=== PATIENT | female | born 1955 | race Caucasian/White ===

== ENCOUNTER 2018-10-15 13:56 | Inpatient (IN) | payer MEDICARE, OTHER ==
[2018-10-15] MEDS ORDERED: NITROGLYCERIN OINT 1 INCH/GM PACKET TOPICAL STA (14:08)
--- NOTE | 2018-10-15 14:08 | ED ---
General Adult HPI - General Stated complaint: Poss Pneumonia Time Seen by Provider: 10/15/18 13:56 Source: RN notes reviewed - History of Present Illness Initial comments: This is a 63-year-old female who presents emergency Department from [facility]. She came in for a cough and some shortness of breath. It was determined that she was septic had pneumonia and had an influenza a positive test. Patient also had an elevated troponin so they were calling her non- STEMI. Patient arrived with heparin on board and was given Rocephin and Zithromax and also had Tamiflu given. Patient currently patient is a very poor historian only answers some questions when asked and EMS stated that they had noted that as well. Patient does not appear in any distress at this time but she states she still has a little bit of chest pressure. - Related Data Home Medications Medication Instructions Recorded Confirmed Acetaminophen [Tylenol Extra 500 mg PO Q6H PRN 10/15/18 10/15/18 Strength] Arformoterol Tartrate [Brovana] 15 mcg INHALATION RT-Q12H 10/15/18 10/15/18 Bimatoprost [Bimatoprost .03% 1 drop BOTH EYES HS 10/15/18 10/15/18 Ophth Soln] Cranberry Fruit Concentrate 450 mg PO DAILY 10/15/18 10/15/18 [Cranberry] Diphenox-Atrop 2.5-0.025 mg 1 tab PO BID PRN 10/15/18 10/15/18 [Lomotil] Fluticasone Nasal [place] [Flonase 2 spr EA NOSTRIL DAILY 10/15/18 10/15/18 Nasal [place]] Furosemide [Lasix] 20 mg PO DAILY 10/15/18 10/15/18 Ipratropium-Albuterol Nebulize 3 ml INHALATION RT-QID 10/15/18 10/15/18 [Duoneb 0.5 mg-3 mg/3 ml Soln] Levothyroxine Sodium [Synthroid] 75 mcg PO DAILY 10/15/18 10/15/18 Potassium Chloride [K-Tab ER] 10 meq PO DAILY 10/15/18 10/15/18 Sertraline [Zoloft] 200 mg PO DAILY 10/15/18 10/15/18 Sucralfate [Carafate] 1 gm PO BID 10/15/18 10/15/18 acetaZOLAMIDE [Diamox] 250 mg PO BID 10/15/18 10/15/18 risperiDONE [RisperDAL] 0.75 mg PO BID 10/15/18 10/15/18 Allergies Allergy/AdvReac Type Severity Reaction Status Date / Time No Known Allergies Allergy Verified 10/15/18 14:37 Review of Systems ROS Statement: Those systems with pertinent positive or pertinent negative responses have been documented in the HPI. ROS Other: All systems not noted in ROS Statement are negative. General Exam - General Exam Comments Initial Comments: GENERAL: Patient is well-developed and well-nourished. Patient is nontoxic and well- hydrated and is in mild distress. ENT: Neck is soft and supple. No significant lymphadenopathy is noted. Oropharynx is clear. Moist mucous membranes. Neck has full range of motion without eliciting any pain. EYES: The sclera were anicteric and conjunctiva were pink and moist. Extraocular movements were intact and pupils were equal round and reactive to light. Eyelids were unremarkable. PULMONARY: Patient has crackles in the left lower base as well as extra wheezing. CARDIOVASCULAR: There is a regular rate and rhythm without any murmurs gallops or rubs. ABDOMEN: Soft and nontender with normal bowel sounds. No palpable organomegaly was noted. There is no palpable pulsatile mass. SKIN: Skin is clear with no lesions or rashes and otherwise unremarkable. NEUROLOGIC: Patient is alert and oriented 2. Cranial nerves II through XII are grossly intact. Motor and sensory are also intact. Normal speech, volume and content. Symmetrical smile. MUSCULOSKELETAL: Normal extremities with adequate strength and full range of motion. No lower extremity swelling or edema. No calf tenderness. LYMPHATICS: No significant lymphadenopathy is noted Course Vital Signs 10/15/18 10/15/18 10/15/18 14:16 14:30 15:00 Temperature 98.2 F Pulse Rate 95 94 85 Respiratory 18 24 20 Rate Blood Pressure 91/43 91/43 88/48 O2 Sat by Pulse 97 93 L Oximetry 10/15/18 10/15/18 10/15/18 15:12 15:17 15:23 Temperature Pulse Rate 90 88 93 Respiratory 18 Rate Blood Pressure 80/54 O2 Sat by Pulse 99 Oximetry 10/15/18 10/15/18 10/15/18 15:30 16:00 16:30 Temperature Pulse Rate 89 89 75 Respiratory 19 18 17 Rate Blood Pressure 84/52 86/57 86/57 O2 Sat by Pulse 95 97 96 Oximetry Medical Decision Making - Medical Decision Making EKG shows normal sinus rhythm at 93 bpm NV interval is 164 QRS is 102 QT interval 36 QTC is 479. Patient's EKG shows no ST segment elevation or depression or T wave abnormalities are noted. I reviewed all the patient's lab work and radiology results. I spoke with Dr. Sampson he agreed to follow-up the lab work that was done in the ER because it had not yet come back. I wrote admitting orders I consult to cardiology. Disposition Clinical Impression: Pneumonia, Influenza, Non-STEMI (non-ST elevated myocardial infarction) Disposition: ADMITTED IP TO THIS HOSP Referrals: Wallace Ang MD [Primary Care Provider] - 1-2 days Time of Disposition: 16:52
[2018-10-15] MEDS ORDERED: HEPARIN SOD,PORK IN 0.45% NACL 25,000 UNIT in 0.45% NACL 1 250ML.BAG IV SCH (14:15)
[2018-10-15] MEDS ORDERED: IPRATROPIUM-ALBUTEROL 3 ML NEB INHALATION STA (14:16)
[2018-10-15] MEDS ORDERED: SODIUM CHLORIDE 0.9% 1,000 ML IV ONE (15:34)
[2018-10-15] MEDS ORDERED: SODIUM CHLORIDE 0.9% 500 ML 500 ML IV ONE (16:43)
[2018-10-15] MEDS ORDERED: PNEUMONIA PROTOCOL UTILIZED 1 EACH MISC PO PRN (16:52)
[2018-10-15] MEDS ORDERED: DIPHENOX-ATROP 2.5-0.025 MG 1 EACH TAB PO PRN (18:29)
[2018-10-15] MEDS: acetaZOLAMIDE 250 MG TAB PO SCH (20:32)
[2018-10-15] MEDS: risperiDONE 0.5 MG TAB PO SCH (20:32)
[2018-10-15] MEDS: LATANOPROST 0.005% OPHTH DROPS 2.5 ML BTL BOTH EYES SCH (20:32)
[2018-10-15] MEDS: FORMOTEROL FUMARATE 20 MCG/2 ML NEBU INHALATION SCH (20:59)
[2018-10-15] MEDS: ALBUTEROL NEBULIZED 2.5 MG/3 ML INHALATION SCH (20:59)
[2018-10-15] MEDS: SODIUM CHLORIDE 0.9% 1,000 ML IV SCH (22:59)
[2018-10-15] MEDS: ACETAMINOPHEN TAB 500 MG TAB PO PRN (23:06)
[2018-10-16] MEDS: ACETAMINOPHEN TAB 500 MG TAB PO PRN ×2 (04:44→18:03)
[2018-10-16] MEDS: LEVOTHYROXINE 75 MCG TAB PO SCH (05:40)
[2018-10-16 06:26] LABS: Basophils % (A) 0 %; Eosinophils % (A) 1 %; HCT 33.6 % (34.0-46.0); HGB 10.3 gm/dL (11.4-16.0); Hypochromasia Slight; Lymphocytes # (A) 0.2 k/uL (1.0-4.8); Lymphocytes % (A) 7 %; MCH 31.2 pg (25.0-35.0); MCHC 30.5 g/dL (31.0-37.0); MCV 102.3 fL (80.0-100.0); Macrocytosis Slight; Mean Platelet Volume 8.1; Monocytes # (A) 0.1 k/uL (0-1.0); Monocytes % (A) 3 %; Neutrophils % (A) 89 %; RBC 3.29 m/uL (3.80-5.40); RDW 14.2 % (11.5-15.5); WBC 3.3 k/uL (3.8-10.6)
[2018-10-16 07:04] LABS: Calcium 7.6 mg/dL (8.4-10.2); Potassium 3.4 mmol/L (3.5-5.1)
--- NOTE | 2018-10-16 07:21 | XR ---
EXAMINATION TYPE: XR chest 2V DATE OF EXAM: 10/16/2018 HISTORY: pneumonia. REFERENCE: NONE. FINDINGS: The heart is mildly enlarged. There is vascular congestion and mild pulmonary edema. No def inite pleural fluid is seen. IMPRESSION: SUBTLE CHANGES OF CONGESTIVE HEART FAILURE.
[2018-10-16 07:29] LABS: Platelet Count 78 k/uL (150-450)
[2018-10-16] MEDS: ALBUTEROL NEBULIZED 2.5 MG/3 ML INHALATION SCH ×4 (07:30→19:43)
[2018-10-16] MEDS: FORMOTEROL FUMARATE 20 MCG/2 ML NEBU INHALATION SCH ×2 (07:30→19:43)
[2018-10-16] MEDS ORDERED: NON-FORMULARY DRUG (Cranberry Fruit Concentrate [Cranberry] 450 MG) PO SCH (09:00)
[2018-10-16] MEDS: OSELTAMIVIR 75 MG CAP PO SCH ×2 (09:24→22:34)
[2018-10-16] MEDS: POTASSIUM CHLORIDE ER 10 MEQ TAB.ER.PRT PO SCH (09:24)
[2018-10-16] MEDS: AZITHROMYCIN 500 MG TAB PO SCH (09:24)
[2018-10-16] MEDS: SODIUM CHLORIDE 0.9% 1,000 ML IV SCH (09:24)
[2018-10-16] MEDS: SERTRALINE 100 MG TAB PO SCH (09:24)
[2018-10-16] MEDS: risperiDONE 0.5 MG TAB PO SCH ×2 (09:24→22:34)
[2018-10-16] MEDS: acetaZOLAMIDE 250 MG TAB PO SCH ×2 (09:24→22:34)
[2018-10-16] MEDS ORDERED: FUROSEMIDE 10 MG/ML 4 ML VIAL IV STA (13:49)
[2018-10-16] MEDS ORDERED: POTASSIUM CHLORIDE ER 20 MEQ TAB.ER PO STA (13:53)
--- NOTE | 2018-10-16 13:54 | P.CRDCN ---
History of Present Illness History of present illness: This is a pleasant 63-year-old female past medical history significant for asthma COPD and hypothyroidism. At baseline she has impaired cognitive function. Most information is obtained from the nursing staff in the medical record. Per the nurse she does communicate at times. She apparently presented to the hospital yesterday afternoon with symptoms of cough and shortness of breath. She tested positive for influenza A. She has been started on Tamiflu, antibiotics and heparin infusion secondary to elevated troponin. She is seen and examined resting comfortably in bed in no acute distress with mildly labored respirations. She is not very conversational at this time. When asked if she is having any chest discomfort she shakes her head no. EKG reveals sinus mechanism with left axis deviation and nonspecific ST abnormalities. There is no old for comparison. Chest x-ray reveals evidence of vascular congestion and mild pulmonary edema. Laboratory data reviewed, WBC 3.3, hemoglobin 10.3, platelets 78, sodium 142, potassium 3.4, creatinine 0.86, cardiac enzymes 0.117 and 0.077, NT proBNP has been checked and has 2580. Current cardiac medications include Lasix 20 mg daily. Unable to obtain accurate review of systems secondary to mental status Blood pressure 116/59 heart rate 96 afebrile maintaining oxygen saturation on nasal cannula GENERAL: This is a 63-year-old occasion female in no apparent distress at the time of my examination. HEENT: Head is atraumatic, normocephalic. Pupils are equal, round. Sclerae anicteric. Conjunctivae are clear. Mucous membranes of the mouth are moist. Neck is supple. There is no jugular venous distention. No carotid bruit is heard. LUNGS: Course rhonchi noted throughout, expiratory wheezing and bibasilar rales noted. HEART: Regular rate and rhythm without murmurs, rubs or gallops. S1 and S2 heard. ABDOMEN: Soft, nontender. Bowel sounds are heard. No organomegaly noted. EXTREMITIES: No evidence of peripheral edema and no calf tenderness noted. VASCULAR: Radial and dorsalis pedis pulses palpated, no evidence of clubbing. NEUROLOGIC: Patient is awake, alert and oriented, currently responding to questions. ASSESSMENT Influenza A Troponin elevation secondary to acute influenza and septic like presentation vs possible non-ST elevated [place]. More likely related to influenza. Will check echo. COPD Pneumonia on antibiotics in the form of rochephin and zithromax History of mental impairment Hypokalemia PLAN Discontinue heparin infusion and place on SQ heparin for DVT prophylaxis. Give one dose of IV lasix 40 mg, replace potassium and start on aspirin 81 mg daily. Obtain 2D echocardiogram and doppler study to assess cardiac structure and function. Repeat kidney function and electrolytes in the morning. Further recommendations to follow based on clinical course. Thank you kindly for this consultation. The above impression and plan of care have been discussed and directed by the signing physician. Cee Main, nurse practitioner, acting as scribe for signing physician. Past Medical History Past Medical History: Asthma, Chest Pain / Angina, COPD, Osteoarthritis (OA), Thyroid Disorder Additional Past Medical History / Comment(s): mild mental retardation, glucoma, sleep apnea History of Any Multi-Drug Resistant Organisms: Unobtainable Past Surgical History: No Surgical Hx Reported Past Anesthesia/Blood Transfusion Reactions: Previous Problems w/ Anesthesia Past Psychological History: Unable to Obtain Smoking Status: Unknown if ever smoked Past Alcohol Use History: None Reported, Unable to Obtain Past Drug Use History: None Reported Medications and Allergies Home Medications Medication Instructions Recorded Confirmed Type Acetaminophen [Tylenol Extra 500 mg PO Q6H PRN 10/15/18 10/15/18 History Strength] Arformoterol Tartrate [Brovana] 15 mcg INHALATION RT-Q12H 10/15/18 10/15/18 History Bimatoprost [Bimatoprost .03% 1 drop BOTH EYES HS 10/15/18 10/15/18 History Ophth Soln] Cranberry Fruit Concentrate 450 mg PO DAILY 10/15/18 10/15/18 History [Cranberry] Diphenox-Atrop 2.5-0.025 mg 1 tab PO BID PRN 10/15/18 10/15/18 History [Lomotil] Fluticasone Nasal [place] [Flonase 2 spr EA NOSTRIL DAILY 10/15/18 10/15/18 History Nasal [place]] Furosemide [Lasix] 20 mg PO DAILY 10/15/18 10/15/18 History Ipratropium-Albuterol Nebulize 3 ml INHALATION RT-QID 10/15/18 10/15/18 History [Duoneb 0.5 mg-3 mg/3 ml Soln] Levothyroxine Sodium [Synthroid] 75 mcg PO DAILY 10/15/18 10/15/18 History Potassium Chloride [K-Tab ER] 10 meq PO DAILY 10/15/18 10/15/18 History Sertraline [Zoloft] 200 mg PO DAILY 10/15/18 10/15/18 History Sucralfate [Carafate] 1 gm PO BID 10/15/18 10/15/18 History acetaZOLAMIDE [Diamox] 250 mg PO BID 10/15/18 10/15/18 History risperiDONE [RisperDAL] 0.75 mg PO BID 10/15/18 10/15/18 History Allergies Allergy/AdvReac Type Severity Reaction Status Date / Time No Known Allergies Allergy Verified 10/15/18 14:37 Physical Exam Vitals: Vital Signs Temp Pulse Pulse Resp BP BP Pulse Ox 10/16/18 08:08 96 10/16/18 08:07 96 10/16/18 07:56 98 10/16/18 05:41 98.9 F 10/16/18 03:58 100.1 F H 103 H 21 101/62 95 10/15/18 23:04 100.0 F H 95 18 93/54 97 10/15/18 21:21 88 10/15/18 21:10 88 10/15/18 20:59 86 18 10/15/18 20:26 98.6 F 76 18 86/54 98 10/15/18 18:28 98.1 F 70 20 81/51 98 10/15/18 17:28 98.0 F 10/15/18 17:00 86 18 98/55 98 10/15/18 16:30 75 17 86/57 96 10/15/18 16:00 89 18 86/57 97 10/15/18 15:30 89 19 84/52 95 10/15/18 15:23 93 10/15/18 15:17 88 18 80/54 99 10/15/18 15:12 90 10/15/18 15:00 85 20 88/48 10/15/18 14:30 94 24 91/43 93 L 10/15/18 14:16 98.2 F 95 18 91/43 97 Intake and Output 10/15/18 10/16/18 10/16/18 22:59 06:59 14:59 Intake Total 546.544 Balance 546.544 Intake: Intake, IV Titration 546.544 Amount Heparin Sod,Pork in 0.45% 46.544 NaCl 25,000 unit In 0.45 % NaCl 1 250ml.bag @ 12 UNITS/KG/HR 5.98 mls/hr IV .Q24H [facility] Rx#: [id number] Sodium Chloride 0.9% 1, 500 000 ml @ 100 mls/hr IV . Q10H [facility] Rx#:[id number] Other: Voiding Method Toilet # Voids 1 2 Weight 74.2 kg Results 10/16/18 06:06 10/16/18 06:06 Cardiac Enzymes 10/15/18 10/16/18 Range/Units 16:30 06:06 Troponin I 0.117 H* 0.077 H* (0.000-0.034) ng/mL Coagulation 10/15/18 10/16/18 Range/Units 21:36 06:06 APTT 133.6 H* 78.0 H (22.0-30.0) sec CBC 10/16/18 Range/Units 06:06 WBC 3.3 L (3.8-10.6) k/uL RBC 3.29 L (3.80-5.40) m/uL Hgb 10.3 L (11.4-16.0) gm/dL Hct 33.6 L (34.0-46.0) % Plt Count 78 L (150-450) k/uL Comprehensive Metabolic Panel 10/16/18 Range/Units 06:06 Sodium 142 (137-145) mmol/L Potassium 3.4 L (3.5-5.1) mmol/L Chloride 119 H (98-107) mmol/L Carbon Dioxide 18 L (22-30) mmol/L BUN 25 H (7-17) mg/dL Creatinine 0.86 (0.52-1.04) mg/dL Glucose 93 (74-99) mg/dL Calcium 7.6 L (8.4-10.2) mg/dL Current Medications Generic Name Dose Route Start Last Admin Trade Name Freq PRN Reason Stop Dose Admin Acetaminophen 500 mg 10/15/18 18:29 10/16/18 04:44 Tylenol Tab PO 500 mg Q6H PRN Administration Pain Acetazolamide 250 mg 10/15/18 21:00 10/16/18 09:24 Diamox PO 250 mg BID [facility] Administration Albuterol Sulfate 2.5 mg 10/15/18 20:00 10/16/18 07:30 Ventolin Nebulized INHALATION 2.5 mg RT-QID [facility] Administration Azithromycin 500 mg 10/16/18 09:00 10/16/18 09:24 Zithromax PO 500 mg DAILY [facility] Administration Diphenoxylate HCl/Atropine 1 each 10/15/18 18:29 Lomotil PO BID PRN Constipation Formoterol Fumarate 20 mcg 10/15/18 20:00 10/15/18 20:59 Perforomist INHALATION 20 mcg RT-BID [facility] Administration Heparin Sodium/Sodium Chloride 250 mls @ 5.98 mls/hr 10/15/18 14:15 10/16/18 00:53 25,000 unit/ Sodium Chloride IV 9 units/kg/hr .Q24H [facility] 4.49 mls/hr Titration Protocol 12 UNITS/KG/HR Ceftriaxone Sodium 1,000 mg/ 50 mls @ 100 mls/hr 10/16/18 09:00 Sodium Chloride IVPB 10/19/18 09:01 Q24HR [facility] Sodium Chloride 1,000 mls @ 100 mls/hr 10/15/18 21:30 10/16/18 09:24 Saline 0.9% IV 100 mls/hr .Q10H [facility] Administration Latanoprost 1 drops 10/15/18 21:00 10/15/18 20:32 Xalatan 0.005% BOTH EYES 1 drops HS [facility] Administration Levothyroxine Sodium 75 mcg 10/16/18 06:30 10/16/18 05:40 Synthroid PO 75 mcg DAILY@0630 [facility] Administration Miscellaneous Information 1 each 10/15/18 16:52 Pneumonia Protocol Utilized PO ONCE PRN Per Protocol Oseltamivir Phosphate 75 mg 10/16/18 09:00 10/16/18 09:24 Tamiflu PO 10/20/18 21:01 75 mg Q12HR [facility] Administration Potassium Chloride 10 meq 10/16/18 09:00 10/16/18 09:24 K-Dur 10 PO 10 meq DAILY [facility] Administration Risperidone 0.75 mg 10/15/18 21:00 10/16/18 09:24 Risperdal PO 0.75 mg BID [facility] Administration Sertraline HCl 200 mg 10/16/18 09:00 10/16/18 09:24 Zoloft PO 200 mg DAILY [facility] Administration Intake and Output 10/15/18 10/16/18 10/16/18 22:59 06:59 14:59 Intake Total 546.544 Balance 546.544 Intake: Intake, IV Titration 546.544 Amount Heparin Sod,Pork in 0.45% 46.544 NaCl 25,000 unit In 0.45 % NaCl 1 250ml.bag @ 12 UNITS/KG/HR 5.98 mls/hr IV .Q24H [facility] Rx#: [id number] Sodium Chloride 0.9% 1, 500 000 ml @ 100 mls/hr IV . Q10H [facility] Rx#:[id number] Other: Voiding Method Toilet # Voids 1 2 Weight 74.2 kg 10/16/18 06:06 10/16/18 06:06
[2018-10-16] MEDS: ASPIRIN 81 MG PO SCH (16:13)
--- NOTE | 2018-10-16 17:25 | HP ---
HISTORY AND PHYSICAL DATE OF ADMISSION: October 15, 2018. DATE OF SERVICE: October 16, 2018. PRESENT COMPLAINT: Fever, cough. HISTORY OF PRESENTING COMPLAINT: This is a pleasant 63-year-old patient with mental impairment, who lives [place] a jail. The patient was transferred from [facility] here. The patient follows with Visiting Physician, Dr. Ang. The patient's medical conditions listed, which is stable, include osteoarthritis, hypothyroid, obstructive sleep apnea, depression. The patient is a poor historian herself. The patient presented to the [place] ER where she has been 5 days feeling unwell, been to the ER 3 times in the last 1 week. The patient had 102 fever [address] the jail. The patient is congested, cough, bringing up some clear sputum. The patient's chest x-ray did show infiltrates and patient came back positive for influenza A. The patient was started on antibiotics and started on Tamiflu here and transferred down here. Also, proBNP was elevated. Seen by Cardiology and was given a dose of IV Lasix. The patient herself still remains a poor historian. Patient had a fever 103.7 with a heart rate of 120 at the other facility. REVIEW OF SYSTEMS: Difficult to obtain as this patient really does not tell much. PAST MEDICAL HISTORY: COPD, osteoarthritis, hypothyroid, mental retardation, obstructive sleep apnea, depression. PAST SURGICAL HISTORY: None reported. SOCIAL HISTORY: The patient's caregiver is Francoise Bowman and legal guardian is Lyric Hull. No smoking. No alcohol reported. HOME MEDICATIONS: 1. Tylenol Extra Strength 500 mg q.6h p.r.n. 2. Risperdal 0.75 mg p.o. b.i.d. 3. Carafate 1 g b.i.d. 4. Zoloft 200 mg p.o. daily. 5. Potassium 10 mEq p.o. daily. 6. Synthroid 75 mcg a day. 7. DuoNeb q.i.d. 8. Lasix 20 mg daily. 9. Flonase 2 sprays each nostril daily. 10.Lomotil 1 tablet p.o. b.i.d. p.r.n. 11.Cranberry 450 mg p.o. daily. 12. 0.03% 1 drop both eyes q.h.s. 13.Brovana 15 mcg q.12h. 14.Diamox 250 mg p.o. b.i.d. ALLERGIES: None. PHYSICAL EXAMINATION: VITAL SIGNS: Vital signs at the other hospital were temperature 103.7, pulse 110, respiration 20, blood pressure 109/55, pulse ox 92 percent on room air. The patient's maximum fever was 100.1. GENERAL APPEARANCE: Well built, BMI 31.9. Sitting up tired-appearing. EYES: Pupils equal. Conjunctivae normal. HEENT: External appearance of nose and ears normal. Oral cavity normal. NECK: JVD unable to assess. Mass not palpable. RESPIRATORY: Effort increased. LUNGS: Decreased breath sounds. Bilateral inspiratory and expiratory crackles. Audible wheezing. CARDIOVASCULAR: First and second sounds normal. No edema. ABDOMEN: Soft, nontender. Liver and spleen not palpable. LYMPHATICS: No lymph nodes palpable in the neck and axilla. PSYCHIATRY: Unable to really assess. NEUROLOGICAL: Pupils equal. No facial asymmetry. Moving all 4 limbs. INVESTIGATIONS: White count 3.3, hemoglobin 10.3, platelets 78. Potassium 3.4, BUN 25, creatinine 0.86. Troponin 0.117 and 0.077. Troponin at the other place was 0.117. Influenza A, RNA detected. The patient's AST is 267, ALT [address] Chest x-ray personally reviewed by me shows bilateral infiltrates. ASSESSMENT: 1. Acute bilateral pneumonia, likely from influenza A, a secondary bacterial component cannot be ruled out causing sepsis on presentation. 2. Primary osteoarthritis. 3. Hypothyroidism. 4. Obstructive sleep apnea, unknown if the patient uses a CPAP machine. 5. Mental retardation, chronic. 6. Depression, not otherwise specified. 7. Obesity; BMI 31.9. 8. Possible congestive heart failure with a proBNP of 2580. PLAN: Patient is put on IV ceftriaxone and Zithromax and the patient is also started on Tamiflu 75 mg q.12. We will also add bronchodilators and given that the patient will be fluid overload, we will hold off patient's IV fluids. We will give Lovenox for DVT prophylaxis. Consultation was made to Cardiology. Copy to visiting physician Dr. Ang. MMSILVESTREL / DILCIAN: [id number] /
[2018-10-16] MEDS ORDERED: DILTIAZEM DRIP BOLUS FROM BAG 1 MG SOLN IV ONE (20:22)
[2018-10-16] MEDS ORDERED: ADENOSINE 3 MG/ML 2 ML VIAL IVP STA (20:22)
[2018-10-16 20:29] LABS: Glucose,Whole Blood 103 mg/dL (75-99)
[2018-10-16] MEDS: DILTIAZEM 50 MG in SODIUM CHLORIDE 0.9% 40 ML IV SCH (21:38)
[2018-10-16] MEDS: HEPARIN SODIUM,PORCINE 5,000 UNIT/ML 1 ML VIAL SQ SCH (22:34)
[2018-10-16] MEDS: LATANOPROST 0.005% OPHTH DROPS 2.5 ML BTL BOTH EYES SCH (22:34)
[2018-10-17 06:11] LABS: Basophils % (A) 0 %; Eosinophils % (A) 1 %; HCT 33.9 % (34.0-46.0); HGB 10.9 gm/dL (11.4-16.0); Hypochromasia Slight; Lymphocytes # (A) 0.3 k/uL (1.0-4.8); Lymphocytes % (A) 16 %; MCH 32.1 pg (25.0-35.0); MCHC 32.2 g/dL (31.0-37.0); MCV 99.8 fL (80.0-100.0); Macrocytosis Slight; Mean Platelet Volume 8.3; Monocytes # (A) 0.1 k/uL (0-1.0); Monocytes % (A) 2 %; Neutrophils # (A) 1.6 k/uL (1.3-7.7); Neutrophils % (A) 80 %; RDW 14.2 % (11.5-15.5)
[2018-10-17 06:16] LABS: Platelet Count 63 k/uL (150-450)
[2018-10-17] MEDS: DILTIAZEM 50 MG in SODIUM CHLORIDE 0.9% 40 ML IV SCH ×3 (06:24→10:22)
[2018-10-17] MEDS: LEVOTHYROXINE 75 MCG TAB PO SCH (06:26)
[2018-10-17 06:29] LABS: Calcium 7.6 mg/dL (8.4-10.2); Potassium 3.5 mmol/L (3.5-5.1)
[2018-10-17] MEDS ORDERED: Potassium Replacement Protocol 1 EACH MISC MISCELLANE PRN (08:12)
[2018-10-17] MEDS: ALBUTEROL NEBULIZED 2.5 MG/3 ML INHALATION SCH ×4 (08:28→20:42)
[2018-10-17] MEDS: FORMOTEROL FUMARATE 20 MCG/2 ML NEBU INHALATION SCH ×2 (08:28→20:42)
[2018-10-17] MEDS: ASPIRIN 81 MG PO SCH (08:42)
[2018-10-17] MEDS: HEPARIN SODIUM,PORCINE 5,000 UNIT/ML 1 ML VIAL SQ SCH ×3 (08:42→19:13)
[2018-10-17] MEDS: acetaZOLAMIDE 250 MG TAB PO SCH ×2 (08:43→19:12)
[2018-10-17] MEDS: SERTRALINE 100 MG TAB PO SCH (08:43)
[2018-10-17] MEDS: OSELTAMIVIR 75 MG CAP PO SCH ×2 (08:43→19:13)
[2018-10-17] MEDS: POTASSIUM CHLORIDE ER 20 MEQ TAB.ER PO SCH ×2 (08:43→10:22)
[2018-10-17] MEDS: AZITHROMYCIN 500 MG TAB PO SCH (08:43)
[2018-10-17] MEDS: POTASSIUM CHLORIDE ER 10 MEQ TAB.ER.PRT PO SCH (08:43)
[2018-10-17] MEDS: risperiDONE 0.5 MG TAB PO SCH ×2 (08:44→19:12)
--- NOTE | 2018-10-17 15:17 | P.PN ---
Subjective Progress Note Date: 10/17/18 This is a pleasant 63-year-old female past medical history significant for asthma COPD and hypothyroidism. At baseline she has impaired cognitive function. Most information is obtained from the nursing staff in the medical record. Per the nurse she does communicate at times. She apparently presented to the hospital with symptoms of cough and shortness of breath. She tested positive for influenza A. She has been started on Tamiflu, antibiotics and heparin infusion secondary to elevated troponin. She is seen and examined resting comfortably in bed in no acute distress with mildly labored respirations. Patient went into supraventricular tachycardia through the night , was given adenosine and converted to normal sinus rhythm. She continues to be in a normal sinus rhythm at this time. Continues to be on IV Cardizem. Which we will discontinue. Blood pressure 86/40, heart rate low 100s, 95% on 3 L of oxygen. White blood cell count 2.0, hemoglobin 10.9, platelet count 63. Sodium 144, potassium 3.5, BUN 16, creatinine 0.8. Objective - Vital Signs Vital signs: Vital Signs Temp 99.7 F H 10/17/18 11:48 Pulse 102 H 10/17/18 13:05 Resp 20 10/17/18 11:55 BP 86/54 10/17/18 11:48 Pulse Ox 95 10/17/18 11:48 Intake & Output 10/16/18 10/17/18 10/17/18 18:59 06:59 18:59 Intake Total 2470 1144.000 279.333 Balance 2470 1144.000 279.333 Weight 74 kg Intake: Intake, IV Titration 1700 1144.000 39.333 Amount Diltiazem 50 mg In Sodium 44.000 39.333 Chloride 0.9% 40 ml @ 10 MG/HR 10 mls/hr IV .Q5H [facility] Rx#:[id number] Sodium Chloride 0.9% 1, 1600 1100 000 ml @ 100 mls/hr IV . Q10H [facility] Rx#:[id number] cefTRIAXone 1,000 mg In 100 Sodium Chloride 0.9% 50 ml @ 100 mls/hr IVPB Q24HR [facility] Rx#:[id number] Oral 770 240 Other: Voiding Method Toilet Toilet # Voids 1 4 # Bowel Movements 1 - Exam Blood pressure 116/59 heart rate 96 afebrile maintaining oxygen saturation on nasal cannula GENERAL: This is a 63-year-old occasion female in no apparent distress at the time of my examination. HEENT: Head is atraumatic, normocephalic. Pupils are equal, round. Sclerae anicteric. Conjunctivae are clear. Mucous membranes of the mouth are moist. Neck is supple. There is no jugular venous distention. No carotid bruit is heard. LUNGS: Course rhonchi noted throughout, expiratory wheezing and bibasilar rales noted. HEART: Regular rate and rhythm without murmurs, rubs or gallops. S1 and S2 heard. ABDOMEN: Soft, nontender. Bowel sounds are heard. No organomegaly noted. EXTREMITIES: No evidence of peripheral edema and no calf tenderness noted. VASCULAR: Radial and dorsalis pedis pulses palpated, no evidence of clubbing. NEUROLOGIC: Patient is awake, alert and oriented, currently responding to questions. - Labs CBC & Chem 7: 10/17/18 05:40 10/17/18 11:41 Labs: Abnormal Lab Results - Last 24 Hours (Table) 10/16/18 10/17/18 10/17/18 Range/Units 20:27 05:40 05:40 WBC 2.0 L (3.8-10.6) k/uL RBC 3.40 L (3.80-5.40) m/uL Hgb 10.9 L (11.4-16.0) gm/dL Hct 33.9 L (34.0-46.0) % Plt Count 63 L (150-450) k/uL Lymphocytes # 0.3 L (1.0-4.8) k/uL Chloride 119 H (98-107) mmol/L Carbon Dioxide 20 L (22-30) mmol/L POC Glucose (mg/dL) 103 H (75-99) mg/dL Calcium 7.6 L (8.4-10.2) mg/dL Microbiology - Last 24 Hours (Table) 10/15/18 21:36 Blood Culture - Preliminary Blood No Growth after 24 hours Assessment and Plan Plan: Assessment and plan #1 Influenza A #2 Troponin elevation secondary to acute influenza and septic like presentation vs possible non-ST elevated [place]. More likely related to influenza. Will check echo. #3 COPD #4 Pneumonia on antibiotics in the form of rochephin and zithromax #5 History of mental impairment #6 Hypokalemia #7 supraventricular tachycardia Plan A shunt is remaining in normal sinus rhythm, we'll discontinue the IV Cardizem drip, start the patient on a low-dose beta aramis. DNP note has been reviewed, I agree with a documented findings and plan of care. Patient was seen and examined.
[2018-10-17] MEDS ORDERED: VANCOMYCIN IV PER PHARMACY 1 EACH MISC MISCELLANE PRN (16:42)
[2018-10-17] MEDS ORDERED: VANCOMYCIN 1,250 MG in SODIUM CHLORIDE 0.9% 250 ML IVPB ONE (18:00)
[2018-10-17] MEDS: LATANOPROST 0.005% OPHTH DROPS 2.5 ML BTL BOTH EYES SCH (19:13)
[2018-10-17] MEDS: METOPROLOL TARTRATE 12.5 MG TAB PO SCH (19:13)
--- NOTE | 2018-10-17 19:56 | ECHOF ---
Referral Reason:elevated trop MEASUREMENTS -------- HEIGHT: 152.4 cm WEIGHT: 73.9 kg BP: 99/56 IVSd: 1.0 cm (0.6 - 1.1) LVIDd: 3.8 cm (3.9 - 5.3) LVPWd: 1.2 cm (0.6 - 1.1) IVSs: 1.4 cm LVIDs: 2.5 cm LVPWs: 1.6 cm LAESV Index (A-L): 25.09 ml/m Ao Diam: 2.8 cm (2.0 - 3.7) AV Cusp: 1.7 cm (1.5 - 2.6) LA Diam: 3.0 cm (2.7 - 3.8) MV EXCURSION: 11.106 mm (> 18.000) MV EF SLOPE: 62 mm/s (70 - 150) EPSS: 0.7 cm AV maxP.55 mmHg AV meanP.28 mmHg RAP: 5.00 mmHg RVSP: 28.47 mmHg FINDINGS -------- Resting tachycardia (HR>100bpm). This was a technically difficult study with suboptimal views. The left ventricular size is normal. Left ventricular wall thickness is normal. Overall left vent ricular systolic function is normal with, an EF between 60 - 65 %. The right ventricle is normal in size and function. The left atrium is normal in size. The right atrium is normal in size. Aortic valve is trileaflet and is mildly thickened. There is mild aortic valve sclerosis. Peak/me an gradient across the Aortic Valve is 30.55mmHg / 17.28mmHg. The mitral valve leaflets are mildly thickened. Mild mitral regurgitation is present. Mild tricuspid regurgitation present. The right ventricular systolic pressure, as measured by Doppl er, is 28.47mmHg. Pulmonic valve appears structurally normal. The aortic root size is normal. IVC Not well visulized. The pericardium is normal. CONCLUSIONS -------- 1. Resting tachycardia (HR>100bpm). 2. This was a technically difficult study with suboptimal views. 3. The left ventricular size is normal. 4. Left ventricular wall thickness is normal. 5. Overall left ventricular systolic function is normal with, an EF between 60 - 65 %. 6. The right ventricle is normal in size and function. 7. The left atrium is normal in size. 8. The right atrium is normal in size. 9. Aortic valve is trileaflet and is mildly thickened. 10. There is mild aortic valve sclerosis. 11. Peak/mean gradient across the Aortic Valve is 30.55mmHg / 17.28mmHg. 12. The mitral valve leaflets are mildly thickened. 13. Mild mitral regurgitation is present. 14. Mild tricuspid regurgitation present. 15. The right ventricular systolic pressure, as measured by Doppler, is 28.47mmHg. 16. Pulmonic valve appears structurally normal. 17. The aortic root size is normal. 18. IVC Not well visulized. 19. The pericardium is normal. PLEATING SUPERVISOR: Eleanor Falk RDCS
--- NOTE | 2018-10-18 05:01 | PN ---
PROGRESS NOTE DATE OF SERVICE: 10/17/2018 PRESENTING COMPLAINT: Fever, cough. INTERVAL HISTORY: This patient with mental impairment presented with influenza A being positive today. Blood cultures came back positive for gram-positive cocci in clusters. Vancomycin was started. The patient less congested, but still congested, having some bronchospasm. Lying in bed. Patient is tolerating his diet. Lying in bed. The patient is minimally communicative. REVIEW OF SYSTEMS: Difficult to obtain as patient does not talk much. CURRENT MEDICATIONS: Current medications are reviewed that include Zithromax, IV ceftriaxone, vancomycin. PHYSICAL EXAMINATION: On examination, temperature 100.9 this morning, pulse 94, respiration 20, blood pressure 86/54 pulse ox 95% on 3 L. GENERAL APPEARANCE: Lying in bed, tired appearing. EYES: Pupils equal. Conjunctivae normal. NECK: JVD unable to assess. Mass not palpable. RESPIRATORY: Effort increased. LUNGS: Decreased breath sounds. Both inspiratory and expiratory crackles a little bit better from before. Decreased wheezing. CARDIOVASCULAR: First and second sounds normal. No edema. ABDOMEN: Soft, nontender. Liver and spleen not palpable. PSYCHIATRY: Patient can answer occasional questions. INVESTIGATIONS: White count 2, hemoglobin 10.9, platelets 63. Potassium 3.5, bicarb 20. BUN 16, creatinine 0.83. ProBNP 2170. A 2D echocardiogram, EF of 60% to 65%. ASSESSMENT: 1. Acute bilateral pneumonia, likely influenza A secondary bacterial component cannot be ruled out causing sepsis on presentation. 2. Sepsis with blood cultures positive for gram-positive cocci in clusters. 3. Primary osteoarthritis. 4. Hypothyroidism. 5. Obstructive sleep apnea. 6. Mental retardation, chronic. 7. Depression, not otherwise specified. 8. Obesity; body mass index 31.9. Vancomycin was added today. Continue with Tamiflu. Will discontinue the Zithromax. Beta aramis was added by Cardiology today. The patient is still rather sick. MMODL / IJN: [id number] /
[2018-10-18] MEDS: LEVOTHYROXINE 75 MCG TAB PO SCH (05:05)
[2018-10-18] MEDS: VANCOMYCIN 1,250 MG in SODIUM CHLORIDE 0.9% 250 ML IVPB SCH ×2 (05:05→17:42)
[2018-10-18 07:01] LABS: Calcium 8.1 mg/dL (8.4-10.2); Potassium 3.9 mmol/L (3.5-5.1)
[2018-10-18 07:26] LABS: Basophils % (A) 0 %; Eosinophils % (A) 1 %; HCT 33.8 % (34.0-46.0); HGB 10.4 gm/dL (11.4-16.0); Hypochromasia Slight; Lymphocytes # (A) 0.3 k/uL (1.0-4.8); Lymphocytes % (A) 21 %; MCHC 30.7 g/dL (31.0-37.0); MCV 100.8 fL (80.0-100.0); Macrocytosis Slight; Mean Platelet Volume 8.4; Monocytes # (A) 0.1 k/uL (0-1.0); Monocytes % (A) 3 %; Neutrophils % (A) 72 %; RBC 3.36 m/uL (3.80-5.40); RDW 14.4 % (11.5-15.5)
[2018-10-18 07:32] LABS: Platelet Count 65 k/uL (150-450); WBC 1.4 k/uL (3.8-10.6)
[2018-10-18] MEDS: METOPROLOL TARTRATE 12.5 MG TAB PO SCH ×2 (08:46→20:05)
[2018-10-18] MEDS: POTASSIUM CHLORIDE ER 10 MEQ TAB.ER.PRT PO SCH (08:46)
[2018-10-18] MEDS: ASPIRIN 81 MG PO SCH (08:46)
[2018-10-18] MEDS: AZITHROMYCIN 500 MG TAB PO SCH (08:47)
[2018-10-18] MEDS: risperiDONE 0.5 MG TAB PO SCH ×2 (08:47→20:05)
[2018-10-18] MEDS: OSELTAMIVIR 75 MG CAP PO SCH (08:47)
[2018-10-18] MEDS: acetaZOLAMIDE 250 MG TAB PO SCH ×2 (08:47→20:05)
[2018-10-18] MEDS: SERTRALINE 100 MG TAB PO SCH (08:54)
[2018-10-18] MEDS: SODIUM BICARBONATE TAB 650 MG TAB PO SCH ×3 (08:54→20:05)
[2018-10-18] MEDS: ALBUTEROL NEBULIZED 2.5 MG/3 ML INHALATION SCH ×4 (09:29→20:22)
[2018-10-18] MEDS: FORMOTEROL FUMARATE 20 MCG/2 ML NEBU INHALATION SCH ×2 (09:35→20:38)
--- NOTE | 2018-10-18 14:46 | P.PN ---
Subjective Progress Note Date: 10/18/18 This is a pleasant 63-year-old female past medical history significant for asthma COPD and hypothyroidism. At baseline she has impaired cognitive function. Most information is obtained from the nursing staff in the medical record. Per the nurse she does communicate at times. She apparently presented to the hospital with symptoms of cough and shortness of breath. She tested positive for influenza A. She has been started on Tamiflu, antibiotics and heparin infusion secondary to elevated troponin. She is seen and examined resting comfortably in bed in no acute distress with mildly labored respirations. Patient went into supraventricular tachycardia through the night , was given adenosine and converted to normal sinus rhythm. She continues to be in a normal sinus rhythm at this time. Continues to be on IV Cardizem. Which we will discontinue. Blood pressure 86/40, heart rate low 100s, 95% on 3 L of oxygen. White blood cell count 2.0, hemoglobin 10.9, platelet count 63. Sodium 144, potassium 3.5, BUN 16, creatinine 0.8. 10/18/2018 Patient seen and examined today, no further episodes of SVT noted. Blood pressure 90/60 with a heart rate in the 80s, 96% on 3 L of oxygen. Objective - Vital Signs Vital signs: Vital Signs Temp 99.2 F 10/18/18 11:43 Pulse 88 10/18/18 13:20 Resp 20 10/18/18 12:00 BP 89/59 10/18/18 11:43 Pulse Ox 96 10/18/18 11:43 Intake & Output 10/17/18 10/18/18 10/18/18 18:59 06:59 18:59 Intake Total 619.333 125 240 Balance 619.333 125 240 Weight 74.5 kg Intake: IV 125 Vancomycin 1,250 mg In 125 Sodium Chloride 0.9% 250 ml @ 125 mls/hr IVPB ONCE ONE Rx#:[id number] Intake, IV Titration 139.333 Amount Diltiazem 50 mg In Sodium 39.333 Chloride 0.9% 40 ml @ 10 MG/HR 10 mls/hr IV .Q5H [facility] Rx#:[id number] cefTRIAXone 1,000 mg In 100 Sodium Chloride 0.9% 50 ml @ 100 mls/hr IVPB Q24HR [facility] Rx#:[id number] Oral 480 240 Other: Voiding Method Toilet Toilet # Voids 1 1 # Bowel Movements 1 - Exam Blood pressure 116/59 heart rate 96 afebrile maintaining oxygen saturation on nasal cannula GENERAL: This is a 63-year-old occasion female in no apparent distress at the time of my examination. HEENT: Head is atraumatic, normocephalic. Pupils are equal, round. Sclerae anicteric. Conjunctivae are clear. Mucous membranes of the mouth are moist. Neck is supple. There is no jugular venous distention. No carotid bruit is heard. LUNGS: Course rhonchi noted throughout, expiratory wheezing and bibasilar rales noted. HEART: Regular rate and rhythm without murmurs, rubs or gallops. S1 and S2 heard. ABDOMEN: Soft, nontender. Bowel sounds are heard. No organomegaly noted. EXTREMITIES: No evidence of peripheral edema and no calf tenderness noted. VASCULAR: Radial and dorsalis pedis pulses palpated, no evidence of clubbing. NEUROLOGIC: Patient is awake, alert and oriented, currently responding to questions. - Labs CBC & Chem 7: 10/18/18 05:49 10/18/18 05:49 Labs: Abnormal Lab Results - Last 24 Hours (Table) 10/18/18 10/18/18 Range/Units 05:49 05:49 WBC 1.4 L* (3.8-10.6) k/uL RBC 3.36 L (3.80-5.40) m/uL Hgb 10.4 L (11.4-16.0) gm/dL Hct 33.8 L (34.0-46.0) % MCV 100.8 H (80.0-100.0) fL MCHC 30.7 L (31.0-37.0) g/dL Plt Count 65 L (150-450) k/uL Neutrophils # 1.0 L (1.3-7.7) k/uL Lymphocytes # 0.3 L (1.0-4.8) k/uL Chloride 121 H (98-107) mmol/L Carbon Dioxide 20 L (22-30) mmol/L Calcium 8.1 L (8.4-10.2) mg/dL Microbiology - Last 24 Hours (Table) 10/15/18 21:36 Blood Culture Gram Stain - Preliminary Blood Blood Culture - Preliminary Coagulase Negative Staph 10/15/18 21:36 Blood Culture - Final Blood Assessment and Plan Plan: Assessment and plan #1 Influenza A #2 Troponin elevation secondary to acute influenza and septic like presentation vs possible non-ST elevated OK. More likely related to influenza. Will check echo. #3 COPD #4 Pneumonia on antibiotics in the form of rochephin and zithromax #5 History of mental impairment #6 Hypokalemia #7 supraventricular tachycardia Plan Patient is remaining in normal sinus rhythm, we would recommend to continue the patient on current medications. We will follow along with you now on an as- needed basis only, please don't hesitate to call with any questions. DNP note has been reviewed, I agree with a documented findings and plan of care. Patient was seen and examined.
--- NOTE | 2018-10-18 15:26 | P.CONS ---
History of Present Illness - Reason for Consult Consult date: 10/18/18 Pancytopenia Requesting physician: Guille Sampson - Chief Complaint Influenza A - History of Present Illness Patient is a 63 year old female who has been admitted with shortness of breath, cough and fever. Xavier culture revealed Influenza A. She is currently receiving supportive care. Hematology has been consulted to assess her low blood counts. WBC today 1.4 and neutrophils 1. On evaluation she is sitting up in a chair, [place] , Poor historian. She has no acute complaints but appears fatigued and weak. Review of Systems A 14 point review of systems assessed and completed and all negative excedpt HPI Past Medical History Past Medical History: Asthma, Chest Pain / Angina, COPD, Osteoarthritis (OA), Thyroid Disorder Additional Past Medical History / Comment(s): mild mental retardation, glucoma, sleep apnea History of Any Multi-Drug Resistant Organisms: Unobtainable Past Surgical History: No Surgical Hx Reported Past Anesthesia/Blood Transfusion Reactions: Previous Problems w/ Anesthesia Past Psychological History: Unable to Obtain Smoking Status: Unknown if ever smoked Past Alcohol Use History: None Reported, Unable to Obtain Past Drug Use History: None Reported Medications and Allergies Home Medications Medication Instructions Recorded Confirmed Type Acetaminophen [Tylenol Extra 500 mg PO Q6H PRN 10/15/18 10/15/18 History Strength] Arformoterol Tartrate [Brovana] 15 mcg INHALATION RT-Q12H 10/15/18 10/15/18 History Bimatoprost [Bimatoprost .03% 1 drop BOTH EYES HS 10/15/18 10/15/18 History Ophth Soln] Cranberry Fruit Concentrate 450 mg PO DAILY 10/15/18 10/15/18 History [Cranberry] Diphenox-Atrop 2.5-0.025 mg 1 tab PO BID PRN 10/15/18 10/15/18 History [Lomotil] Fluticasone Nasal [place] [Flonase 2 spr EA NOSTRIL DAILY 10/15/18 10/15/18 History Nasal [place]] Furosemide [Lasix] 20 mg PO DAILY 10/15/18 10/15/18 History Ipratropium-Albuterol Nebulize 3 ml INHALATION RT-QID 10/15/18 10/15/18 History [Duoneb 0.5 mg-3 mg/3 ml Soln] Levothyroxine Sodium [Synthroid] 75 mcg PO DAILY 10/15/18 10/15/18 History Potassium Chloride [K-Tab ER] 10 meq PO DAILY 10/15/18 10/15/18 History Sertraline [Zoloft] 200 mg PO DAILY 10/15/18 10/15/18 History Sucralfate [Carafate] 1 gm PO BID 10/15/18 10/15/18 History acetaZOLAMIDE [Diamox] 250 mg PO BID 10/15/18 10/15/18 History risperiDONE [RisperDAL] 0.75 mg PO BID 10/15/18 10/15/18 History Allergies Allergy/AdvReac Type Severity Reaction Status Date / Time No Known Allergies Allergy Verified 10/15/18 14:37 Physical Exam Vitals: Vital Signs Temp Pulse Pulse Resp BP Pulse Ox 10/18/18 13:20 88 10/18/18 13:09 88 10/18/18 12:00 87 20 10/18/18 11:43 99.2 F 87 20 89/59 96 10/18/18 09:49 88 10/18/18 09:41 84 10/18/18 09:40 84 10/18/18 09:31 88 98 10/18/18 08:00 99.4 F 90 20 91/48 98 10/18/18 04:00 98.8 F 92 20 99/59 97 10/18/18 03:54 20 10/18/18 00:00 95 20 101/58 96 10/17/18 21:01 101 H 10/17/18 20:52 103 H 10/17/18 20:44 100 10/17/18 20:00 99.4 F 99 20 85/54 95 10/17/18 16:51 102 H 10/17/18 16:43 100 96 10/17/18 16:00 98.6 F 96 20 97/54 95 Intake and Output 10/18/18 10/18/18 10/18/18 06:59 14:59 22:59 Intake Total 125 240 Balance 125 240 Intake: IV 125 Vancomycin 1,250 mg In 125 Sodium Chloride 0.9% 250 ml @ 125 mls/hr IVPB ONCE ONE Rx#:[id number] Oral 240 Other: Voiding Method Toilet # Voids 1 # Bowel Movements 1 Weight 74.5 kg General: ALert, NAD Head: NC, NT NEck Supple, Trachea midline, No lymphadenopathy cervical or axilla Lungs expiratory wheezres throughout and diminished bibasilar Heart Tachy, Reg ABdomen: Soft, ND, NT Extremities: MIld lower extremity bilateral dependant edema Results CBC & Chem 7: 10/18/18 05:49 10/18/18 05:49 Labs: Abnormal Lab Results - Last 24 Hours (Table) 10/18/18 10/18/18 Range/Units 05:49 05:49 WBC 1.4 L* (3.8-10.6) k/uL RBC 3.36 L (3.80-5.40) m/uL Hgb 10.4 L (11.4-16.0) gm/dL Hct 33.8 L (34.0-46.0) % MCV 100.8 H (80.0-100.0) fL MCHC 30.7 L (31.0-37.0) g/dL Plt Count 65 L (150-450) k/uL Neutrophils # 1.0 L (1.3-7.7) k/uL Lymphocytes # 0.3 L (1.0-4.8) k/uL Chloride 121 H (98-107) mmol/L Carbon Dioxide 20 L (22-30) mmol/L Calcium 8.1 L (8.4-10.2) mg/dL Microbiology - Last 24 Hours (Table) 10/15/18 21:36 Blood Culture Gram Stain - Preliminary Blood Blood Culture - Preliminary Coagulase Negative Staph 10/15/18 21:36 Blood Culture - Final Blood Abdominal x-ray: report reviewed Assessment and Plan Plan: Assessment and Recommendations: 1. Leukopenia, Neutropenia, Lymphopenia - ANC = 1.0, WBC 1.5 - Likely related to Viral Infection - Will check for vitamin Deficiency contributing to low count with B12, Folate , MMA - Will hold off on initiation Dec[place]d stimulating factor unless Neutrophils drop below 1. 2. Macrocytic Anemia: - Likely related to acute viral infection: Will work-up further to ensure no other underlying deficiency or suppression - Monitor CBC and transfuse if hemoglobin less than 7 3. THrombocytopenia: - Currently not requiring intervention as greater than 50K, this is considered safe range - MOnitor CBC daily and if less than 15 may transfuse Platlets - Will check baseline coags 4. Influenza A: - Per primary team - Supportive care and monitoring for secondary infections 5. NSTEMI: Cardiology THank you for allowing us to participate in the care of this patient.
--- NOTE | 2018-10-18 18:20 | PN ---
PROGRESS NOTE DATE OF SERVICE: 10/18/2018 PRESENTING COMPLAINT: Cough. INTERVAL HISTORY: Patient with mental impairment presented with influenza A pneumonitis. Blood cultures were positive for gram-positive cocci, now coming back as contaminant, which makes sense. The patient has been tolerating a diet. Still congested but doing better. Sitting up in bed. Patient does not at her baseline communicate much. REVIEW OF SYSTEMS: Was attempted for constitutional, cardiovascular, GI, pulmonary. CURRENT MEDICATIONS: Reviewed. They include: 1. IV ceftriaxone. 2. Zithromax. 3. IV vancomycin. 4. Tamiflu. PHYSICAL EXAMINATION: Temperature 97.1, pulse 86, respiration 18, blood pressure 130/56, pulse ox 96% on 3 L. GENERAL APPEARANCE: Sitting up, awake. Less tired-appearing. EYES: Pupils equal. Conjunctivae normal. NECK: JVD unable to assess. Mass not palpable. RESPIRATORY: Effort increased. LUNGS: Decreased breath sounds. Some crackles, though improved from before. CARDIOVASCULAR: First and second sounds normal. No edema. ABDOMEN: Soft, non-tender. Liver and spleen not palpable. PSYCHIATRY: Does answer occasional questions. INVESTIGATIONS: White count 1.4, hemoglobin 10.4, platelets 64. Potassium 3.9, bicarb 20. BUN 17, creatinine 0.83. ASSESSMENT: 1. Acute bilateral pneumonitis secondary to influenza A. Bacterial component less likely. 2. Contaminated blood cultures. 3. Primary osteoarthritis. 4. Hypothyroidism. 5. Obstructive sleep apnea. 6. Mental retardation, chronic. 7. Depression not otherwise specified. 8. Obesity; body mass index 31.9. 9. Pancytopenia, likely from underlying infection. 10.Metabolic acidosis. 11.Troponin leak from hemodynamic mismatch. Does not appear to be any coronary artery event. PLAN: At this point we will discontinue the vancomycin. Will also discontinue the Zithromax. Keep the patient on Tamiflu and ceftriaxone. Will also add some inhaled steroids. Patient to continue on inhaled bronchodilators. Also she was seen by Oncology. Will repeat a chest x-ray tomorrow morning. MMODL / IJN: [id number] /
[2018-10-18] MEDS: HEPARIN SODIUM,PORCINE 5,000 UNIT/ML 1 ML VIAL SQ SCH (20:05)
[2018-10-18] MEDS: OSELTAMIVIR 60 MG/10 ML ORAL SYRINGE PO SCH (20:06)
[2018-10-18] MEDS: BUDESONIDE 1 MG/2 ML NEBU INHALATION SCH (20:22)
[2018-10-18] MEDS: LATANOPROST 0.005% OPHTH DROPS 2.5 ML BTL BOTH EYES SCH (21:02)
[2018-10-19] MEDS ORDERED: VANCOMYCIN TROUGH DUE 1 EACH MISC MISCELLANE ONE (05:00)
[2018-10-19] MEDS: LEVOTHYROXINE 75 MCG TAB PO SCH (05:01)
[2018-10-19 05:51] LABS: HCT 33.3 % (34.0-46.0); HGB 10.7 gm/dL (11.4-16.0); Hypochromasia Slight; MCH 32.2 pg (25.0-35.0); MCHC 31.9 g/dL (31.0-37.0); MCV 100.7 fL (80.0-100.0); Macrocytosis Slight; Mean Platelet Volume 8.1; RBC 3.31 m/uL (3.80-5.40); RDW 14.2 % (11.5-15.5)
[2018-10-19 05:52] LABS: Platelet Count 66 k/uL (150-450); WBC 1.3 k/uL (3.8-10.6)
[2018-10-19 06:10] LABS: Albumin 2.6 g/dL (3.5-5.0); Calcium 8.3 mg/dL (8.4-10.2); Potassium 4.1 mmol/L (3.5-5.1); Total Bilirubin 0.4 mg/dL (0.2-1.3); Total Protein 4.8 g/dL (6.3-8.2)
[2018-10-19 06:22] LABS: Band Neutrophils % 4 %; Eosinophils # (M) 0.01 k/uL (0-0.7); Lymphocytes # (M) 0.38 k/uL (1.0-4.8); Monocytes # (M) 0.04 k/uL (0-1.0); Neutrophils % (M) 63 %; Nucleated Red Blood Cells 0 /100 WBC (0-0); Total Cells Counted 100
--- NOTE | 2018-10-19 08:19 | XR ---
EXAMINATION TYPE: XR chest 2V DATE OF EXAM: 10/19/2018 COMPARISON: 10/16/2018 INDICATION: Pneumonia TECHNIQUE: Frontal and lateral views of the chest are obtained. FINDINGS: The heart size is normal. The pulmonary vasculature is normal. There is a focal consolidation in the left lower lobe. Minimal infiltrate may be in the medial right lower lobe. IMPRESSION: 1. Consolidation in the left lower lobe suspicious for pneumonia. Some minimal infiltrate is at the r ight base. Findings are worsening from the comparison.
[2018-10-19] MEDS: BUDESONIDE 1 MG/2 ML NEBU INHALATION SCH ×2 (08:20→20:43)
[2018-10-19] MEDS: ALBUTEROL NEBULIZED 2.5 MG/3 ML INHALATION SCH ×4 (08:20→20:43)
[2018-10-19] MEDS: FORMOTEROL FUMARATE 20 MCG/2 ML NEBU INHALATION SCH ×2 (08:20→20:43)
[2018-10-19] MEDS: SODIUM BICARBONATE TAB 650 MG TAB PO SCH ×3 (09:08→20:20)
[2018-10-19] MEDS: HEPARIN SODIUM,PORCINE 5,000 UNIT/ML 1 ML VIAL SQ SCH ×2 (09:08→20:20)
[2018-10-19] MEDS: POTASSIUM CHLORIDE ER 10 MEQ TAB.ER.PRT PO SCH (09:09)
[2018-10-19] MEDS: acetaZOLAMIDE 250 MG TAB PO SCH ×2 (09:09→20:21)
[2018-10-19] MEDS: risperiDONE 0.5 MG TAB PO SCH ×2 (09:09→20:21)
[2018-10-19] MEDS: SERTRALINE 100 MG TAB PO SCH (09:09)
[2018-10-19] MEDS: ASPIRIN 81 MG PO SCH (09:09)
[2018-10-19] MEDS: METOPROLOL TARTRATE 12.5 MG TAB PO SCH ×2 (09:09→20:20)
[2018-10-19] MEDS: OSELTAMIVIR 60 MG/10 ML ORAL SYRINGE PO SCH ×2 (10:41→20:32)
[2018-10-19 11:41] LABS: Folate, Serum 11.4 ng/mL
[2018-10-19] MEDS: FILGRASTIM-SNDZ 480 MCG/0.8 ML SYRINGE SQ SCH (12:59)
--- NOTE | 2018-10-19 17:08 | P.PN ---
Subjective Progress Note Date: 10/19/18 Principal diagnosis: Influenza, Pancytopenia She nods yes and doses back off during interaction Objective - Vital Signs Vital signs: Vital Signs Temp 97.6 F 10/19/18 16:00 Pulse 88 10/19/18 16:11 Resp 16 10/19/18 16:00 BP 108/70 10/19/18 16:00 Pulse Ox 95 10/19/18 16:00 Intake & Output 10/18/18 10/19/18 10/19/18 18:59 06:59 18:59 Intake Total 240 250 190 Balance 240 250 190 Weight 75.6 kg Intake: Intake, IV Titration 250 100 Amount Vancomycin 1,250 mg In 250 Sodium Chloride 0.9% 250 ml @ 125 mls/hr IVPB Q12H [facility] Rx#:[id number] cefTRIAXone 1,000 mg In 100 Sodium Chloride 0.9% 50 ml @ 100 mls/hr IVPB Q24HR [facility] Rx#:[id number] Oral 240 90 Other: Voiding Method Toilet Toilet # Voids 1 1 1 # Bowel Movements 1 1 - Exam eneral: ALert, NAD Head: NC, NT NEck Supple, Trachea midline, No lymphadenopathy cervical or axilla Lungs expiratory wheezres throughout and diminished bibasilar Heart Tachy, Reg ABdomen: Soft, ND, NT Extremities: MIld lower extremity bilateral dependant edema Results - Labs CBC & Chem 7: 10/19/18 05:25 10/19/18 05:25 Labs: Abnormal Lab Results - Last 24 Hours (Table) 10/19/18 10/19/18 Range/Units 05:25 05:25 WBC 1.3 L* (3.8-10.6) k/uL RBC 3.31 L (3.80-5.40) m/uL Hgb 10.7 L (11.4-16.0) gm/dL Hct 33.3 L (34.0-46.0) % MCV 100.7 H (80.0-100.0) fL Plt Count 66 L (150-450) k/uL Neutrophils # (Manual) 0.80 L (1.3-7.7) k/uL Lymphocytes # (Manual) 0.38 L (1.0-4.8) k/uL Chloride 119 H (98-107) mmol/L Carbon Dioxide 20 L (22-30) mmol/L BUN 21 H (7-17) mg/dL Calcium 8.3 L (8.4-10.2) mg/dL AST 77 H (14-36) U/L ALT 79 H (9-52) U/L Alkaline Phosphatase 158 H (38-126) U/L Total Protein 4.8 L (6.3-8.2) g/dL Albumin 2.6 L (3.5-5.0) g/dL Assessment and Plan Plan: Assessment and Recommendations: 1. Leukopenia, Neutropenia, Lymphopenia - ANC = 0.8, WBC 1.3 - Likely related to Viral Infection - Will check for vitamin Deficiency contributing to low count with B12, Folate , MMA - Start Zarxio today 2. Macrocytic Anemia: - Likely related to acute viral infection: Will work-up further to ensure no other underlying deficiency or suppression - Monitor CBC and transfuse if hemoglobin less than 7 3. THrombocytopenia: - Currently not requiring intervention as greater than 50K, this is considered safe range - MOnitor CBC daily and if less than 15 may transfuse Platlets - Will check baseline coags 4. Influenza A: - Per primary team - Supportive care and monitoring for secondary infections 5. NSTEMI: Cardiology THank you for allowing us to participate in the care of this patient.
[2018-10-19] MEDS: LATANOPROST 0.005% OPHTH DROPS 2.5 ML BTL BOTH EYES SCH (20:21)
--- NOTE | 2018-10-20 01:21 | PN ---
PROGRESS NOTE DATE OF SERVICE: 10/19/2018. PRESENTING COMPLAINT: Cough. INTERVAL HISTORY: This is a patient with mental impairment, presented with influenza pneumonitis. The patient is looks better, sitting up, eating his meal. Has been eating well. Not answering questions, just smiles and nods her head. REVIEW OF SYSTEMS: Was attempted but the patient is just nodding head today. CURRENT MEDICATIONS: Reviewed that include Tamiflu. PHYSICAL EXAMINATION: Temperature 98.7, pulse 79, respirations 17, blood pressure 102/65, pulse 92 percent room air. GENERAL APPEARANCE: Sitting up, eating. EYES: Pupils equal. Conjunctivae normal. NECK: JVD unable to assess. Respiratory effort increased. LUNGS: Diffuse crackles. CARDIOVASCULAR: 1st and 2nd sounds normal. No edema. ABDOMEN: Soft, nontender. PSYCHIATRY: Not answering questions. INVESTIGATIONS: White count 1.3, hemoglobin 10.7, platelets 66,000, potassium 4.1, bicarb 20. ASSESSMENT: 1. Acute bilateral pneumonitis secondary to influenza A, bacterial component less likely. 2. Contaminated blood culture. 3. Primary osteoarthritis. 4. Possible congestive heart failure exacerbation from diastolic dysfunction. We will see how patient responds to IV Lasix. 5. Primary osteoarthritis. 6. Hypothyroidism. 7. Obstructive sleep apnea. 8. Mental retardation, chronic. 9. Depression, not otherwise specified. 10.Obesity; BMI 31.9. 11.Pancytopenia, likely from underlying infection. 12.Metabolic acidosis. 13.Troponin leak from hemodynamic mismatch, does not appear to be acute coronary event. PLAN: Will give the patient IV Lasix 1 dose now and another after 8 hours. We will check a BNP now and check a BMP later tomorrow. Continue with Tamiflu. The patient does not appear to have any bacterial pneumonia. Follow closely. MMODL / IJN: [id number] /
[2018-10-20] MEDS: LEVOTHYROXINE 75 MCG TAB PO SCH (06:20)
[2018-10-20 07:06] LABS: Calcium 8.5 mg/dL (8.4-10.2)
[2018-10-20] MEDS: BUDESONIDE 1 MG/2 ML NEBU INHALATION SCH ×2 (08:12→21:03)
[2018-10-20] MEDS: ALBUTEROL NEBULIZED 2.5 MG/3 ML INHALATION SCH ×4 (08:12→21:03)
[2018-10-20] MEDS: FORMOTEROL FUMARATE 20 MCG/2 ML NEBU INHALATION SCH ×2 (08:12→21:03)
[2018-10-20] MEDS: ASPIRIN 81 MG PO SCH (08:59)
[2018-10-20] MEDS: METOPROLOL TARTRATE 12.5 MG TAB PO SCH ×2 (08:59→20:12)
[2018-10-20] MEDS: POTASSIUM CHLORIDE ER 10 MEQ TAB.ER.PRT PO SCH (08:59)
[2018-10-20] MEDS: SODIUM BICARBONATE TAB 650 MG TAB PO SCH ×3 (08:59→20:13)
[2018-10-20] MEDS: SERTRALINE 100 MG TAB PO SCH (08:59)
[2018-10-20] MEDS: acetaZOLAMIDE 250 MG TAB PO SCH ×2 (08:59→20:12)
[2018-10-20] MEDS: HEPARIN SODIUM,PORCINE 5,000 UNIT/ML 1 ML VIAL SQ SCH ×2 (09:00→20:12)
[2018-10-20] MEDS: risperiDONE 0.5 MG TAB PO SCH ×2 (09:01→20:13)
[2018-10-20] MEDS: OSELTAMIVIR 60 MG/10 ML ORAL SYRINGE PO SCH ×2 (09:11→20:13)
[2018-10-20] MEDS: FILGRASTIM-SNDZ 480 MCG/0.8 ML SYRINGE SQ SCH (09:27)
--- NOTE | 2018-10-20 17:27 | P.PN ---
Subjective Progress Note Date: 10/20/18 Principal diagnosis: Influenza, Pancytopenia Resting comfortably awakens to stimuli, Awaiting CBC today since starting GCSF Objective - Vital Signs Vital signs: Vital Signs Temp 96.5 F L 10/20/18 08:00 Pulse 76 10/20/18 17:08 Resp 16 10/20/18 16:00 BP 106/56 10/20/18 16:00 Pulse Ox 96 10/20/18 16:00 Intake & Output 10/19/18 10/20/18 10/20/18 18:59 06:59 18:59 Intake Total 430 240 Balance 430 240 Weight 73 kg Intake: Intake, IV Titration 100 Amount cefTRIAXone 1,000 mg In 100 Sodium Chloride 0.9% 50 ml @ 100 mls/hr IVPB Q24HR [facility] Rx#:[id number] Oral 330 240 Other: Voiding Method Toilet Toilet Toilet Diaper Diaper # Voids 1 2 # Bowel Movements 1 - Exam eneral: ALert, NAD Head: NC, NT NEck Supple, Trachea midline, No lymphadenopathy cervical or axilla Lungs expiratory wheezres throughout and diminished bibasilar Heart Tachy, Reg ABdomen: Soft, ND, NT Extremities: MIld lower extremity bilateral dependant edema Results - Labs CBC & Chem 7: 10/19/18 05:25 10/20/18 06:08 Labs: Abnormal Lab Results - Last 24 Hours (Table) 10/20/18 Range/Units 06:08 Chloride 119 H (98-107) mmol/L Carbon Dioxide 20 L (22-30) mmol/L BUN 20 H (7-17) mg/dL Microbiology - Last 24 Hours (Table) 10/15/18 21:36 Blood Culture Gram Stain - Final Blood Blood Culture - Final Coagulase Negative Staph Micrococcus species Assessment and Plan Plan: Assessment and Recommendations: 1. Leukopenia, Neutropenia, Lymphopenia - ANC = 0.8, WBC 1.3 - Likely related to Viral Infection - Will check for vitamin Deficiency contributing to low count with B12, Folate , MMA - Start Zarxio today 2. Macrocytic Anemia: - Likely related to acute viral infection: Will work-up further to ensure no other underlying deficiency or suppression - Monitor CBC and transfuse if hemoglobin less than 7 3. THrombocytopenia: - Currently not requiring intervention as greater than 50K, this is considered safe range - MOnitor CBC daily and if less than 15 may transfuse Platlets - Will check baseline coags 4. Influenza A: - Per primary team - Supportive care and monitoring for secondary infections 5. NSTEMI: Cardiology PLan: - COntinue Zarxio - Await CBC repeat today and monitor daily
[2018-10-20] MEDS: LATANOPROST 0.005% OPHTH DROPS 2.5 ML BTL BOTH EYES SCH (20:14)
--- NOTE | 2018-10-21 00:14 | PN ---
PROGRESS NOTE DATE OF SERVICE: 10/20/2018. PRESENTING COMPLAINT: Cough. INTERVAL HISTORY: This patient with mental impairment, presented with influenza, pneumonitis, and also felt to have CHF exacerbation. Did give patient Lasix yesterday to which she did respond. The patient is eating better, sitting up, breathing somewhat better. REVIEW OF SYSTEMS: Attempted, but the patient is nodding or smiling. CURRENT MEDICATIONS: Reviewed, that include Tamiflu. The patient did get IV Lasix. PHYSICAL EXAMINATION: Temperature 98.6, pulse 56, respirations 15, blood pressure 99/52, pulse ox 100 percent on 2 L. GENERAL APPEARANCE: Sitting up in a chair, looking much better. EYES: Pupils are equal. Conjunctivae normal. NECK: JVD unable to assess. Mass not palpable. Respiratory effort increased. LUNGS: Decreased crackles. CARDIOVASCULAR: 1st and 2nd heart sounds normal. No edema. ABDOMEN: Soft, nontender. Liver and spleen not palpable. PSYCHIATRY: Not answering questions, following commands. INVESTIGATIONS: Potassium 4, BUN 20, creatinine 0.82. ASSESSMENT: 1. Acute bilateral pneumonitis secondary to influenza A, bacterial component likely with clinical improvement. 2. Contaminated blood culture. 3. Primary osteoarthritis. 4. Acute congestive heart failure exacerbation from diastolic dysfunction, has responded well to IV Lasix. 5. Primary osteoarthritis. 6. Hypothyroidism. 7. Obstructive sleep apnea. 8. Mental retardation, chronic. 9. Depression, not otherwise specified. 10.Obesity; BMI 31.9. 11.Pancytopenia, likely from underlying infection. 12.Metabolic acidosis. 13.Troponin leak from hemodynamic mismatch, does not appear to be coronary syndrome. PLAN: The patient did respond well to the IV Lasix. Will repeat a chest x-ray tomorrow. The patient is eating rather well. Overall seems to be doing much better. MMODL / IJN: [id number] /
[2018-10-21] MEDS: FUROSEMIDE 10 MG/ML 4 ML VIAL IV SCH ×2 (00:37→00:38)
[2018-10-21 05:15] VITALS: RESP 16
[2018-10-21] MEDS: LEVOTHYROXINE 75 MCG TAB PO SCH (06:12)
[2018-10-21 06:55] LABS: Basophils % (A) 0 %; Eosinophils # (A) 0.1 k/uL (0-0.7); Eosinophils % (A) 0 %; HCT 34.6 % (34.0-46.0); HGB 10.5 gm/dL (11.4-16.0); Hypochromasia Marked; Lymphocytes # (A) 0.8 k/uL (1.0-4.8); Lymphocytes % (A) 4 %; MCHC 30.5 g/dL (31.0-37.0); Macrocytosis Moderate; Mean Platelet Volume 9.1; Monocytes # (A) 0.5 k/uL (0-1.0); Monocytes % (A) 2 %; Neutrophils % (A) 93 %; RBC 3.29 m/uL (3.80-5.40); RDW 14.1 % (11.5-15.5); WBC 21.6 k/uL (3.8-10.6)
[2018-10-21 06:59] LABS: Calcium 8.6 mg/dL (8.4-10.2)
[2018-10-21 07:00] LABS: Platelet Count 117 k/uL (150-450)
[2018-10-21 07:29] LABS: Potassium 4.3 mmol/L (3.5-5.1)
[2018-10-21] MEDS: SODIUM BICARBONATE TAB 650 MG TAB PO SCH ×2 (08:41→16:29)
[2018-10-21] MEDS: risperiDONE 0.5 MG TAB PO SCH (08:41)
[2018-10-21] MEDS: acetaZOLAMIDE 250 MG TAB PO SCH (08:41)
[2018-10-21] MEDS: POTASSIUM CHLORIDE ER 10 MEQ TAB.ER.PRT PO SCH (08:41)
[2018-10-21] MEDS: METOPROLOL TARTRATE 12.5 MG TAB PO SCH (08:41)
[2018-10-21] MEDS: SERTRALINE 100 MG TAB PO SCH (08:42)
[2018-10-21] MEDS: ASPIRIN 81 MG PO SCH (08:42)
[2018-10-21] MEDS: HEPARIN SODIUM,PORCINE 5,000 UNIT/ML 1 ML VIAL SQ SCH (08:42)
[2018-10-21 08:46] VITALS: TEMP 97.7
[2018-10-21] MEDS: ALBUTEROL NEBULIZED 2.5 MG/3 ML INHALATION SCH ×3 (08:59→15:57)
[2018-10-21] MEDS: FORMOTEROL FUMARATE 20 MCG/2 ML NEBU INHALATION SCH (08:59)
[2018-10-21] MEDS: BUDESONIDE 1 MG/2 ML NEBU INHALATION SCH (08:59)
--- NOTE | 2018-10-21 11:39 | XR ---
EXAMINATION TYPE: XR chest 2V DATE OF EXAM: 10/21/2018 COMPARISON: 10/19/2018 INDICATION: Follow-up pneumonia, CHF TECHNIQUE: Frontal and lateral views of the chest are obtained. FINDINGS: The heart size is normal. The pulmonary vasculature is normal. There is a left lower lobe infiltrate. Correlate for pneumonia. This may mild improvement. Mild infil trate is at the right base which appears stable.. IMPRESSION: 1. Improving left lower lobe infiltrate. Correlate for pneumonia. 2. Mild stable infiltrate at the right base 3. Continued follow-up is recommended.
[2018-10-21 14:35] VITALS: BMI 31.5
[2018-10-21 16:33] VITALS: BP 109/57; PULSE 81
--- NOTE | 2018-10-21 17:25 | P.PN ---
Subjective Progress Note Date: 10/21/18 Principal diagnosis: Influenza, Pancytopenia Resting comfortably awakens to stimuli, WBC increased today, will stop GCSF Objective - Vital Signs Vital signs: Vital Signs Temp 97.7 F 10/21/18 08:00 Pulse 78 10/21/18 16:10 Resp 16 10/21/18 16:10 BP 109/57 10/21/18 16:00 Pulse Ox 94 L 10/21/18 16:00 Intake & Output 10/20/18 10/21/18 10/21/18 18:59 06:59 18:59 Intake Total 240 600 180 Balance 240 600 180 Weight 73.2 kg 73.2 kg Intake: Oral 240 600 180 Other: Voiding Method Toilet Toilet Toilet Diaper Diaper Diaper # Voids 2 2 3 # Bowel Movements 0 1 - Exam eneral: ALert, NAD Head: NC, NT NEck Supple, Trachea midline, No lymphadenopathy cervical or axilla Lungs expiratory wheezres throughout and diminished bibasilar Heart Tachy, Reg ABdomen: Soft, ND, NT Extremities: MIld lower extremity bilateral dependant edema Results - Labs CBC & Chem 7: 10/21/18 05:59 10/21/18 05:59 Labs: Abnormal Lab Results - Last 24 Hours (Table) 10/19/18 10/21/18 10/21/18 Range/Units 05:25 05:59 05:59 WBC 21.6 H (3.8-10.6) k/uL RBC 3.29 L (3.80-5.40) m/uL Hgb 10.5 L (11.4-16.0) gm/dL MCV 105.0 H (80.0-100.0) fL MCHC 30.5 L (31.0-37.0) g/dL Plt Count 117 L D (150-450) k/uL Neutrophils # 20.0 H (1.3-7.7) k/uL Lymphocytes # 0.8 L (1.0-4.8) k/uL Chloride 119 H (98-107) mmol/L Carbon Dioxide 18 L (22-30) mmol/L BUN 22 H (7-17) mg/dL Methylmalonic Acid 0.70 H (<0.40) umol/L Assessment and Plan Plan: Assessment and Recommendations: 1. Leukopenia, Neutropenia, Lymphopenia - ANC = 0.8, WBC 1.3, now increased to WBC 21 (STOP ZARXIO) - Likely related to Viral Infection - Reviewed vitamin Deficiency contributing to low count with B12, Folate, MMA 2. Macrocytic Anemia: - Likely related to acute viral infection: Will work-up further to ensure no other underlying deficiency or suppression - Monitor CBC and transfuse if hemoglobin less than 7 3. THrombocytopenia: - Currently not requiring intervention as greater than 50K, this is considered safe range - MOnitor CBC daily and if less than 15 may transfuse Platlets - Will check baseline coags 4. Influenza A: - Per primary team - Supportive care and monitoring for secondary infections 5. NSTEMI: Cardiology PLan: - Discontinue Zarxio - Await CBC repeat today and monitor daily - Continue Supportive care per primary team
--- NOTE | 2018-10-22 05:03 | DS ---
DISCHARGE SUMMARY DATE OF ADMISSION: October 15, 2018. DATE OF DISCHARGE: October 21, 2018. FINAL DIAGNOSES: 1. Acute bilateral pneumonitis secondary to influenza A bacterial component unlikely. 2. Contaminated blood cultures. 3. Primary osteoarthritis. 4. Acute congestive heart failure exacerbation from diastolic dysfunction. Ejection fraction 55-60 percent. 5. Primary osteoarthritis. 6. Hypothyroidism. 7. Obstructive sleep apnea. 8. Mental retardation, chronic. 9. Depression, not otherwise specified. 10.Obesity; BMI 31.9. 11.Pancytopenia, likely from underlying infection. 12.Metabolic acidosis. 13.Troponin leak from hemodynamic mismatch, does not appear to be acute coronary syndrome. HOSPITAL COURSE: This patient lives at an adult foster care, presented with shortness of breath, cough, congested, found to have acute bilateral pneumonitis secondary to influenza A initially treated with antibiotics though primarily felt to be influenza A. The patient also developed acute exacerbation of congestive heart failure. Responded well to IV Lasix. By the time of discharge was sitting up, tolerating a diet, feeling much better, coloring in her paint book. EXAMINATION: Occasional crackles. Comfortable. Sitting up. On examination, afebrile. Pulse 79, respirations 16, blood pressure 110/65, pulse ox 94 percent on room air. Lungs improved air entry. Occasional crackles. The patient is comfortable, smiling. INVESTIGATIONS: White count 21.6, hemoglobin 10.5, platelets did come up from 65-117. Potassium 4.3, BUN 22, creatinine 0.88. It may be noted that the patient did get Farxiga for the low white count. The patient antibiotics were also discontinued. DISCHARGE MEDICATIONS: 1. Tylenol Extra Strength 500 mg q.6h p.r.n. 2. Brovana 15 mcg q.12h. 3. 0.03% 1 drop to both eyes q.h.s. 4. Cranberry 450 mg p.o. daily. 5. Lomotil 1 tablet p.o. b.i.d. p.r.n. 6. Flonase 2 sprays each nostril daily. 7. DuoNeb q.i.d. 8. Synthroid 75 mcg p.o. daily. 9. Potassium 10 mEq p.o. daily. 10.Zoloft 100 mg p.o. daily. 11.Diamox 250 mg p.o. b.i.d. 12.Risperdal 0.5 mg p.o. b.i.d. 13.Aspirin 81 mg p.o. daily. 14.Lasix 40 mg p.o. daily. 15.Sodium bicarb 650 mg p.o. t.i.d. DISPOSITION: [facility]. The patient has a legal guardian. FOLLOWUP: Follow up with Dr. Ang from [facility] in 3 days, Dr. Tyler Puga in 1 week. Labs, BMP in 1 week. Copy to visiting physician Dr. Ang. MMSILVESTREL / IJN: [id number] /
== END 2018-10-21 18:41 | disposition home health service (06) | DRG 193 ==
LOC: EC 13:56 → EEVIPCON 16:53 → 3SCARD 16:53
PROVIDERS: ADMIT Hospitalist; ATTEND Hospitalist
DX: J09.X1 Influenza due to identified novel influenza A virus with pneumonia (principal); I50.33 Acute on chronic diastolic (congestive) heart failure; J44.0 Chronic obstructive pulmonary disease with (acute) lower respiratory infection; E87.2 Acidosis; D61.818 Other pancytopenia; I47.1 Supraventricular tachycardia; M19.90 Unspecified osteoarthritis, unspecified site; E03.9 Hypothyroidism, unspecified; E87.6 Hypokalemia; F70 Mild intellectual disabilities; M19.91 Primary osteoarthritis, unspecified site; H40.9 Unspecified glaucoma; G47.33 Obstructive sleep apnea (adult) (pediatric); F32.9 Major depressive disorder, single episode, unspecified; R77.8 Other specified abnormalities of plasma proteins; E66.9 Obesity, unspecified; Z68.31 Body mass index [BMI] 31.0-31.9, adult; Z79.890 Hormone replacement therapy; Z79.899 Other long term (current) drug therapy
CPT/HCPCS: 36415; 71046; 80048; 80053; 80202; 82607; 82746; 83605; 83735; 83880; 83921; 84132; 84484; 85025; 85730; 87040; 87502; 93005; 93306; 94640; 94760; 96365; 96366; 99285

== ENCOUNTER 2023-11-24 19:36 | Inpatient (IN) | payer MEDICARE, OTHER ==
--- NOTE | 2023-11-24 20:53 | ED ---
Arrhythmia/Palpitations HPI - General Chief Complaint: Arrhythmia/Palpitations Stated Complaint: AFIB - Transfer Time Seen by Provider: 11/24/23 19:45 Source: EMS Mode of arrival: EMS Limitations: language barrier - History of Present Illness Initial Comments: 68-year-old female presents to the emergency department from [facility]. She went into their facility for dizziness. They found that the patient was in A-fib with RVR. She does have a history of A-fib. She was started on a Cardizem drip. She does take Cardizem daily. Patient does not take daily anticoagulation. Patient was requiring 3 L of oxygen as her oxygen was 86%. Chest x-ray demonstrated fluid overload. States that she normally does not wear oxygen. Transferring physician was also concerned about infection and therefore gave her a dose of Rocephin and azithromycin. Patient found to be COVID- positive and was transferred to facility for further care. Platelets found to be 61. BNP 8920. Procalcitonin 0.48. Troponin 0.032 - Related Data Home Medications Medication Instructions Recorded Confirmed Acetaminophen [Tylenol Extra 500 - 1,000 mg PO Q6H PRN 10/15/18 11/24/23 Strength] Ipratropium-Albuterol Nebulize 3 ml INHALATION RT-QID PRN 10/15/18 11/24/23 [Duoneb 0.5 mg-3 mg/3 ml Soln] Potassium Chloride [K-Tab ER] 10 meq PO Q48H 10/15/18 11/24/23 Sertraline [Zoloft] 200 mg PO DAILY@0800 10/15/18 11/24/23 Albuterol Sulfate [Ventolin HFA] 2 puff INHALATION RT-Q4H PRN 11/24/23 11/24/23 Ascorbic Acid [Vitamin C] 1,000 mg PO DAILY PRN 11/24/23 11/24/23 Aspirin 81 mg PO DAILY@0811/24/23 11/24/23 Benadryl [place] 2-0.1% 1 applic TOPICAL QID PRN 11/24/23 11/24/23 Brimonidine Tartrate [Alphagan P 1 drops RIGHT EYE BID 11/24/23 11/24/23 0.2% Ophth Soln] Cholecalciferol (Vitamin D3) 50 mcg PO DAILY@0800 11/24/23 11/24/23 [Vitamin D3 (50 Mcg = 2000 Iu)] Divalproex Sprinkle [Depakote 375 mg PO TID@0800,1700,199911/24/23 11/24/23 Sprinkle] Furosemide [Lasix] 20 mg PO Q48H 11/24/23 11/24/23 Lactulose 20 gm PO DAILY@0800 11/24/23 11/24/23 Latanoprost [Latanoprost 0.005%] 1 drop BOTH EYES HS@199911/24/23 11/24/23 Levothyroxine Sodium [Synthroid] 88 mcg PO DAILY@0800 11/24/23 11/24/23 Lidocaine 4% Patch 1 patch TOPICAL DAILY PRN 11/24/23 11/24/23 Meclizine [Antivert] 12.5 - 25 mg PO BID PRN 11/24/23 11/24/23 Naproxen [Naprosyn] 500 mg PO BID@0800,199911/24/23 11/24/23 Rosuvastatin Calcium 5 mg PO HS@199911/24/23 11/24/23 Sodium Bicarbonate Tab 650 mg PO TID@0800,1700,199911/24/23 11/24/23 clonazePAM [KlonoPIN] 0.25 mg PO DAILY@0800 11/24/23 11/24/23 dilTIAZem HCL [Cartia Xt] 120 mg PO DAILY@0800 11/24/23 11/24/23 miSOPROStoL 100 mcg PO BID@0800,1700 11/24/23 11/24/23 Allergies Allergy/AdvReac Type Severity Reaction Status Date / Time No Known Allergies Allergy Verified 11/24/23 21:07 Review of Systems ROS Statement: Those systems with pertinent positive or pertinent negative responses have been documented in the HPI. ROS Other: All systems not noted in ROS Statement are negative. Past Medical History Past Medical History: Asthma, Chest Pain / Angina, COPD, Osteoarthritis (OA), Thyroid Disorder Additional Past Medical History / Comment(s): mild mental retardation, glucoma,sleep apnea History of Any Multi-Drug Resistant Organisms: Unobtainable Past Surgical History: No Surgical Hx Reported Past Anesthesia/Blood Transfusion Reactions: Previous Problems w/ Anesthesia Past Psychological History: Unable to Obtain Past Alcohol Use History: None Reported, Unable to Obtain Past Drug Use History: None Reported General Exam Limitations: language barrier General appearance: alert, in no apparent distress Head exam: Present: atraumatic, normocephalic, normal inspection Eye exam: Present: normal appearance, PERRL, EOMI. Absent: scleral icterus, conjunctival injection, periorbital swelling ENT exam: Present: normal exam, mucous membranes moist Neck exam: Present: normal inspection. Absent: tenderness, meningismus, lymphadenopathy Respiratory exam: Present: normal lung sounds bilaterally. Absent: respiratory distress, wheezes, rales, rhonchi, stridor Cardiovascular Exam: Present: regular rate, normal rhythm, normal heart sounds. Absent: systolic murmur, diastolic murmur, rubs, gallop, clicks GI/Abdominal exam: Present: soft, normal bowel sounds. Absent: distended, tenderness, guarding, rebound, rigid Extremities exam: Present: normal inspection, full ROM, normal capillary refill. Absent: tenderness, pedal edema, joint swelling, calf tenderness Back exam: Present: normal inspection Neurological exam: Present: alert, oriented X3, CN II-XII intact Psychiatric exam: Present: normal affect, normal mood Skin exam: Present: warm, dry, intact, normal color. Absent: rash Course Vital Signs 11/24/23 11/24/23 11/24/23 19:42 20:20 21:10 Temperature 98.4 F Pulse Rate 94 78 80 Respiratory 18 16 16 Rate Blood Pressure 102/50 99/64 101/65 O2 Sat by Pulse 94 L 94 L 95 Oximetry 11/24/23 11/24/23 11/24/23 22:20 22:30 22:40 Temperature Pulse Rate 78 77 83 Respiratory 16 16 16 Rate Blood Pressure 115/78 115/78 117/77 O2 Sat by Pulse 98 98 98 Oximetry 11/24/23 11/24/23 22:50 23:00 Temperature Pulse Rate 78 76 Respiratory 16 16 Rate Blood Pressure 117/77 117/77 O2 Sat by Pulse 98 98 Oximetry Medical Decision Making - Medical Decision Making Was pt. sent in by a medical professional or institution (, PA, MARKET SURVEY REPRESENTATIVE, urgent care, hospital, or [facility]...) When possible be specific @ -Patient was sent over from [facility] Did you speak to anyone other than the patient for history (EMS, parent, family, police, friend...)? What history was obtained from this source @ -I spoke with EMS Did you review nursing and triage notes (agree or disagree)? Why? @ -I reviewed and agree with nursing and triage notes Were old charts reviewed (outside hosp., previous admission, EMS record, old EKG, old radiological studies, urgent care reports/EKG's, [facility] records)? Report findings @ -I reviewed the charts from [facility] Differential Diagnosis (chest pain, altered mental status, abdominal pain women, abdominal pain men, vaginal bleeding, weakness, fever, dyspnea, syncope, headache, dizziness, GI bleed, back pain, seizure, CVA, palpatations, mental health, musculoskeletal)? @ -Differential Dyspnea: Coronary syndrome, arrhythmia, tamponade, asthma, COPD, pulmonary embolism, pneumonia, pneumothorax, pulmonary effusion, anaphylaxis, diabetic ketoacidosis, flailed chest, pulmonary contusion, diaphragmatic rupture, anemia, neuromuscular, this is not meant to be an all-inclusive list. EKG interpreted by me (3pts min.). @ -Yes which appears to demonstrate sinus rhythm with these. Rate of 87. DE interval 164. QRS 102. QTc of 418. No acute ST segment elevations or depressions X-rays interpreted by me (1pt min.). @ -None done CT interpreted by me (1pt min.). @ -None done U/S interpreted by me (1pt. min.). @ -None done What testing was considered but not performed or refused? (CT, X-rays, U/S, labs)? Why? @ -Chest x-ray was considered however patient already had 1 at outside facility What meds were considered but not given or refused? Why? @ -Cardizem was considered however patient did have improvement in her heart rate and was back in a normal sinus rhythm Did you discuss the management of the patient with other professionals (professionals i.e. , PA, MARKET SURVEY REPRESENTATIVE, lab, RT, psych nurse, social media campaign manager, proof sorter, teacher, ground nuclear weapons assembly officer, director case)? Give summary @ -Spoke with Dr. Guzman for admission Was smoking cessation discussed for >3mins.? @ -No Was critical care preformed (if so, how long)? @ -No Were there social determinants of health that impacted care today? How? (Homelessness, low income, unemployed, alcoholism, drug addiction, transportation, low edu. Level, literacy, decrease access to med. care, correction, rehab)? @ -No Was there de-escalation of care discussed even if they declined (Discuss DNR or withdrawal of care, Hospice)? DNR status @ -No What co-morbidities impacted this encounter? (DM, HTN, Smoking, COPD, CAD, Cancer, CVA, ARF, Chemo, Hep., AIDS, mental health diagnosis, sleep apnea, morbid obesity)? @ -A-fib with RVR Was patient admitted / discharged? Hospital course, mention meds given and route, prescriptions, significant lab abnormalities, going to OR and other pertinent info. @ -Admitted. Upon arrival patient placed into room 19. Thorough history and physical exam was performed. I did review the patient's transfer packet. Repeat troponin was completed. Troponin has increased from 0.066 2.07. Patient has already received aspirin. Platelets are low. She has a history of A-fib and is not on any anticoagulation and therefore I will hold at this time due to concern for some type of contraindication. Patient is no longer in A-fib and therefore Cardizem drip is stopped. She is still requiring 2 L of oxygen. Patient will be admitted. Spoke with Dr. Guzman for admission Undiagnosed new problem with uncertain prognosis? @ -No Drug Therapy requiring intensive monitoring for toxicity (Heparin, Nitro, Insulin, Cardizem)? @ -No Were any procedures done? @ -No Diagnosis/symptom? @ -Near syncope, A-fib with RVRnormal sinus rhythm now, NSTEMI, COVID infection, hypoxic respiratory failure Acute, or Chronic, or Acute on Chronic? @ -Acute Uncomplicated (without systemic symptoms) or Complicated (systemic symptoms)? @ -Complicated Side effects of treatment? @ -No Exacerbation, Progression, or Severe Exacerbation? @ -No Poses a threat to life or bodily function? How? (Chest pain, [place], NH, pneumonia, PE, COPD, DKA, ARF, appy, cholecystitis, CVA, Diverticulitis, Homicidal, Suicidal, threat to staff... and all critical care pts) @Yes patient was hypoxic - Lab Data Lab Results 11/24/23 Range/Units 19:59 Troponin I 0.071 H* (0.000-0.034) ng/mL Disposition Clinical Impression: Atrial fibrillation with RVR, Non-STEMI (non-ST elevated myocardial infarction), Pulmonary vascular congestion, Hypoxia Disposition: ADMITTED IP TO THIS HOSP Condition: Stable Is patient prescribed a controlled substance at d/c from ED?: No Time of Disposition: 21:17 Decision to Admit Reason: Admit from EC Decision Date: 11/24/23 Decision Time: 21:17
[2023-11-24] MEDS ORDERED: NALOXONE 0.4 MG/ML 1 ML VIAL IV PRN (22:01)
[2023-11-25] MEDS ORDERED: ALBUTEROL HFA INHALER INHALATION PRN ×2 (00:51→21:01)
[2023-11-25] MEDS ORDERED: ACETAMINOPHEN TAB 500 MG TAB PO PRN (00:51)
[2023-11-25] MEDS ORDERED: IPRATROPIUM-ALBUTEROL 3 ML NEB INHALATION PRN (00:51)
--- NOTE | 2023-11-25 01:32 | P.HPIM ---
History of Present Illness H&P Date: 11/24/23 Chief Complaint: afib with RVR 68 year old female with developmental delays, afib , chf, copd, she was transferred form [facility] for cardiac evaluation due to afib with RVR. patient unable to provide any meaningful history , which was obtained from reviewing medical records and discussing the case with ED doc. patient was evaluated initially for dizziness, and found to be in afib with RVR, she has history of it but not on blood thinners. she takes cardizem po at home . she was also found to be hypoxic requiring supplemental oxygen , normally is not on oxygen , CXR did show some lower lungs vascular congestion vs infilterates, for which she was started on antibiotics , patient is also found to be COVID positive no further history obtainable at this time review of systems Pertinent positives as noted in HPI. All other systems were reviewed and are negative on exam Constitutional: No acute distress, non verbal Eyes: Anicteric sclerae, moist conjunctiva, Pupils equal round reactive to light ENMT: NC/AT Oropharynx clear, no erythema, or exudates Neck: Supple, no masses, or JVD No carotid bruits No thyromegaly Lungs: Clear to auscultation Clear to percussion Normal respiratory effort, no accessory muscle use Cardiovascular: Heart regular in rate and rhythm, (patient converted) No murmurs, gallops, or rubs No peripheral edema Abdominal: Soft Nontender, no guarding, rebound or rigidity Abdomen moving with respiration Normoactive bowel sounds Extremities: No digital cyanosis No clubbing Pedal pulses intact and symmetrical Radial pulses intact and symmetrical No calf tenderness Psychiatric: awake , makes good eye contact, non verbal Neuro does not follow commands, moving spontaneously Past Medical History Past Medical History: Asthma, Chest Pain / Angina, COPD, Osteoarthritis (OA), Thyroid Disorder Additional Past Medical History / Comment(s): mild mental retardation, glucoma,sleep apnea History of Any Multi-Drug Resistant Organisms: Unobtainable Past Surgical History: No Surgical Hx Reported Past Anesthesia/Blood Transfusion Reactions: Previous Problems w/ Anesthesia Past Psychological History: Unable to Obtain Past Alcohol Use History: None Reported, Unable to Obtain Past Drug Use History: None Reported Medications and Allergies Home Medications Medication Instructions Recorded Confirmed Type Acetaminophen [Tylenol Extra 500 - 1,000 mg PO Q6H PRN 10/15/18 11/24/23 History Strength] Ipratropium-Albuterol Nebulize 3 ml INHALATION RT-QID PRN 10/15/18 11/24/23 History [Duoneb 0.5 mg-3 mg/3 ml Soln] Potassium Chloride [K-Tab ER] 10 meq PO Q48H 10/15/18 11/24/23 History Sertraline [Zoloft] 200 mg PO DAILY@0800 10/15/18 11/24/23 History Albuterol Sulfate [Ventolin HFA] 2 puff INHALATION RT-Q4H PRN 11/24/23 11/24/23 History Ascorbic Acid [Vitamin C] 1,000 mg PO DAILY PRN 11/24/23 11/24/23 History Aspirin 81 mg PO DAILY@0800 11/24/23 11/24/23 History Benadryl [place] 2-0.1% 1 applic TOPICAL QID PRN 11/24/23 11/24/23 History Brimonidine Tartrate [Alphagan P 1 drops RIGHT EYE BID 11/24/23 11/24/23 History 0.2% Ophth Soln] Cholecalciferol (Vitamin D3) 50 mcg PO DAILY@0800 11/24/23 11/24/23 History [Vitamin D3 (50 Mcg = 2000 Iu)] Divalproex Sprinkle [Depakote 375 mg PO TID@0800,1700,199911/24/23 11/24/23 History Sprinkle] Furosemide [Lasix] 20 mg PO Q48H 11/24/23 11/24/23 History Lactulose 20 gm PO DAILY@0800 11/24/23 11/24/23 History Latanoprost [Latanoprost 0.005%] 1 drop BOTH EYES HS@199911/24/23 11/24/23 His tory Levothyroxine Sodium [Synthroid] 88 mcg PO DAILY@0800 11/24/23 11/24/23 History Lidocaine 4% Patch 1 patch TOPICAL DAILY PRN 11/24/23 11/24/23 History Meclizine [Antivert] 12.5 - 25 mg PO BID PRN 11/24/23 11/24/23 History Naproxen [Naprosyn] 500 mg PO BID@0800,199911/24/23 11/24/23 History Rosuvastatin Calcium 5 mg PO HS@199911/24/23 11/24/23 History Sodium Bicarbonate Tab 650 mg PO TID@0800,170,199911/24/23 11/24/23 History clonazePAM [KlonoPIN] 0.25 mg PO DAILY@0800 11/24/23 11/24/23 History dilTIAZem HCL [Cartia Xt] 120 mg PO DAILY@0800 11/24/23 11/24/23 History miSOPROStoL 100 mcg PO BID@0800,1700 11/24/23 11/24/23 History Allergies Allergy/AdvReac Type Severity Reaction Status Date / Time No Known Allergies Allergy Verified 11/24/23 21:07 Physical Exam Vitals: Vital Signs Temp Pulse Pulse Resp BP BP Pulse Ox 11/24/23 23:25 97.7 F 85 18 114/64 96 11/24/23 23:00 76 16 117/77 98 11/24/23 22:50 78 16 117/77 98 11/24/23 22:40 83 16 117/77 98 11/24/23 22:30 77 16 115/78 98 11/24/23 22:20 78 16 115/78 98 11/24/23 21:10 80 16 101/65 95 11/24/23 20:20 78 16 99/64 94 L 11/24/23 19:42 98.4 F 94 18 102/50 94 L Intake and Output 11/24/23 11/24/23 11/25/23 14:59 22:59 06:59 Other: Weight 74.389 kg Results Labs: Abnormal Lab Results - Last 24 Hours (Table) 11/24/23 Range/Units 19:59 Troponin I 0.071 H* (0.000-0.034) ng/mL Assessment and Plan Assessment: 68-year-old female with developmental delays adult foster care resident transferred from [facility] to our facility for evaluation of A-fib with RVR I discussed the case with ED doctor accepted the admission for acute hypoxic respiratory failure secondary to COVID infection with A-fib and RVR for cardiology evaluation with anticipated length of stay more than 2 midnights Acute hypoxic respiratory failure COVID-pneumonia Chest x-ray showing mild pulmonary vascular congestion at lung bases VF versus infiltrates Procalcitonin was elevated Patient was started on antibiotic at [facility] with Rocephin and azithromycin will continue Decadron 6 mg IV push daily Droplet precautions Supplemental oxygen as needed DuoNebs as needed Continue p.o. Lasix A-fib with RVR Elevated troponin possibly type II demand ischemia rule out acute coronary syndrome, versus could be related to COVID infection Unable to initiate heparin drip due to low platelet count 61 Patient on Cardizem drip currently converted to normal sinus rhythm will wean off gradually and resume oral medications Trend troponin slightly elevated initial 1 at [facility] 0.032 then 0.066 currently 0.07 Cardiac monitoring Monitor vital signs Slightly elevated liver enzymes Hold statin AST 95 ALT 70 alkaline phosphatase 175 bilirubin unremarkable 0.8 Follow-up CMP in the morning Renal function unremarkable sodium 139 potassium 3.6 BUN 31 creatinine 1 Pancytopenia unknown duration and underlying cause Hemoglobin 10.6 no evidence of bleeding Platelets 61 White count 2.09 Hematology consult Continue to monitor Full code DVT prophylaxis mechanical thrombocytopenia
[2023-11-25 05:44] LABS: HCT 31.1 % (34.0-46.0); HGB 10.5 gm/dL (11.4-16.0); MCHC 33.8 g/dL (31.0-37.0); MCV 103.7 fL (80.0-100.0); Macrocytosis Slight; Mean Platelet Volume 10.7; Platelet Count 59 k/uL (150-450); RDW 13.1 % (11.5-15.5)
[2023-11-25 05:48] LABS: WBC 1.3 k/uL (3.8-10.6)
[2023-11-25 05:50] LABS: African American GFR (CKD) 90 (>60 ml/min/1.73 sqM); Anion Gap 7 mmol/L; Blood Urea Nitrogen 33 mg/dL (7-17); Calcium 8.7 mg/dL (8.4-10.2); Carbon Dioxide 24 mmol/L (22-30); Chloride 111 mmol/L (98-107); Glucose 136 mg/dL (74-99); Non-African American GFR(CKD) 78 (>60 ml/min/1.73 sqM); Potassium 4.4 mmol/L (3.5-5.1); Sodium 142 mmol/L (137-145)
[2023-11-25] MEDS: LEVOTHYROXINE 88 MCG TAB PO SCH (06:36)
--- NOTE | 2023-11-25 06:40 | P.CNPUL ---
History of Present Illness Consult date: 11/25/23 Requesting physician: Lul Hightower Reason for consult: pneumonia Chief complaint: Dizziness History of present illness: I am seeing this patient in consultation today 11/25/2023 after she was transfer [facility] for A-fib RVR and was found to be COVID-positive. Patient is a 68-year-old white female with past medical history significant for developmental delay, atrial fibrillation, asthma, obstructive sleep apnea, hypothyroidism, hyperlipidemia, among other things. Patient does have developmental delay, and is a poor historian. She lives at [facility] home. I did review the chart from [facility]. Apparently she presented with complaints of dizziness and vague URI-like symptoms. She was found to be in A- fib RVR, with a heart rate of 160 bpm. She was started on a Cardizem infusion. Chest x-ray at the outside facility, interpreted by me, shows central vascular congestion and interstitial infiltrates, likely interstitial edema versus pneumonia. Patient did test positive for COVID on arrival to the outside facility. Apparently several workers and residents at the [facility] home have been sick. CBC at the outside facility: WBC count 2.09, hemoglobin 10.6, hematocrit 33.4, platelets 61,000. BMP at outside facility: Sodium 139, potassium 3.6, chloride 106, serum bicarb 29, BUN 31, creatinine 1.1, glucose 111. AST 95, ALT 70, ALP 175. Lactic acid level was mildly elevated at 2.3. Troponins elevated at 0.32, 0.071, and 0.062 respectively. NT proBNP was significantly elevated 8920. Shortly after transfer to [facility], the patient's heart rhythm converted back to normal sinus rhythm. The Cardizem infusion was stopped. Admitted to the cardiac stepdown unit. Patient is currently sitting in bed, on room air, in no acute distress. She is eating Lays potato chips. SpO2 is 94%. She was previously on 1.5 L nasal cannula. She denies any significant chest pain, heart palpitations, or lightheadedness. She does report runny nose, sore throat, and nonproductive cough. She remains afebrile. She was empirically started on Rocephin and azithromycin. Procalcitonin was elevated at the outside facility at 0.48. Vital signs are stable. Review of Systems REVIEW OF SYSTEMS: Should be noted the patient has a developmental delay, and not all of this information has been consistent throughout the interview CONSTITUTIONAL: Denies any recent significant weight loss or weight gain. EYES: Denies change in vision. EARS, NOSE, MOUTH, THROAT: Denies headaches, denies sore throat. Admits runny nose. CARDIOVASCULAR: Denies chest pain, palpitations or syncopal episodes. RESPIRATORY: Denies any significant shortness of breath. Admits persistent cough. Denies any sputum production or hemoptysis. GASTROINTESTINAL: Denies change in appetite, abdominal pain, nausea and vomiting, or diarrhea GENITOURINARY: Denies hematuria, denies infections. MUSKULOSKELETAL: Denies pain, denies swelling. INTEGUMENTARY: Denies rash, denies eczema. Reports recent fall and bruise on her left leg NEUROLOGICAL: Denies recent memory loss, no recent seizure activity. PSYCHIATRIC: Denies anxiety, denies depression. HEMATOLOGIC/LYMPHATIC: Denies anemia, denies enlarged lymph node Past Medical History Past Medical History: Asthma, Chest Pain / Angina, COPD, Osteoarthritis (OA), Thyroid Disorder Additional Past Medical History / Comment(s): mild mental retardation, glucoma,sleep apnea History of Any Multi-Drug Resistant Organisms: Unobtainable Past Surgical History: No Surgical Hx Reported Past Anesthesia/Blood Transfusion Reactions: Previous Problems w/ Anesthesia Past Psychological History: Unable to Obtain Past Alcohol Use History: None Reported, Unable to Obtain Past Drug Use History: None Reported - Past Family History Mother History Unknown: Yes Medications and Allergies Home Medications Medication Instructions Recorded Confirmed Type Acetaminophen [Tylenol Extra 500 - 1,000 mg PO Q6H PRN 10/15/18 11/24/23 History Strength] Ipratropium-Albuterol Nebulize 3 ml INHALATION RT-QID PRN 10/15/18 11/24/23 History [Duoneb 0.5 mg-3 mg/3 ml Soln] Potassium Chloride [K-Tab ER] 10 meq PO Q48H 10/15/18 11/24/23 History Sertraline [Zoloft] 200 mg PO DAILY@0800 10/15/18 11/24/23 History Albuterol Sulfate [Ventolin HFA] 2 puff INHALATION RT-Q4H PRN 11/24/23 11/24/23 History Ascorbic Acid [Vitamin C] 1,000 mg PO DAILY PRN 11/24/23 11/24/23 History Aspirin 81 mg PO DAILY@0800 11/24/23 11/24/23 History Benadryl [place] 2-0.1% 1 applic TOPICAL QID PRN 11/24/23 11/24/23 History Brimonidine Tartrate [Alphagan P 1 drops RIGHT EYE BID 11/24/23 11/24/23 History 0.2% Ophth Soln] Cholecalciferol (Vitamin D3) 50 mcg PO DAILY@0800 11/24/23 11/24/23 History [Vitamin D3 (50 Mcg = 2000 Iu)] Divalproex Sprinkle [Depakote 375 mg PO TID@0800,1700,199911/24/23 11/24/23 History Sprinkle] Furosemide [Lasix] 20 mg PO Q48H 11/24/23 11/24/23 History Lactulose 20 gm PO DAILY@0800 11/24/23 11/24/23 History Latanoprost [Latanoprost 0.005%] 1 drop BOTH EYES HS@199911/24/23 11/24/23 History Levothyroxine Sodium [Synthroid] 88 mcg PO DAILY@0800 11/24/23 11/24/23 History Lidocaine 4% Patch 1 patch TOPICAL DAILY PRN 11/24/23 11/24/23 History Meclizine [Antivert] 12.5 - 25 mg PO BID PRN 11/24/23 11/24/23 History Naproxen [Naprosyn] 500 mg PO BID@0800,199911/24/23 11/24/23 History Rosuvastatin Calcium 5 mg PO HS@199911/24/23 11/24/23 History Sodium Bicarbonate Tab 650 mg PO TID@0800,1700,199911/24/23 11/24/23 History clonazePAM [KlonoPIN] 0.25 mg PO DAILY@0800 11/24/23 11/24/23 History dilTIAZem HCL [Cartia Xt] 120 mg PO DAILY@0800 11/24/23 11/24/23 History miSOPROStoL 100 mcg PO BID@0800,1700 11/24/23 11/24/23 History Allergies Allergy/AdvReac Type Severity Reaction Status Date / Time No Known Allergies Allergy Verified 11/24/23 21:07 Physical Exam Vitals: Vital Signs Temp Pulse Pulse Resp BP BP Pulse Ox 11/25/23 03:25 98 F 67 16 116/64 94 L 11/24/23 23:25 97.7 F 85 18 114/64 96 11/24/23 23:00 76 16 117/77 98 11/24/23 22:50 78 16 117/77 98 11/24/23 22:40 83 16 117/77 98 11/24/23 22:30 77 16 115/78 98 11/24/23 22:20 78 16 115/78 98 11/24/23 21:10 80 16 101/65 95 11/24/23 20:20 78 16 99/64 94 L 11/24/23 19:42 98.4 F 94 18 102/50 94 L Intake and Output 11/24/23 11/24/23 11/25/23 14:59 22:59 06:59 Other: Voiding Method External Catheter Weight 74.389 kg 56.245 kg GENERAL EXAM: Alert, developmentally delayed 68-year-old white female, comfortable in no apparent distress. HEAD: Normocephalic and atraumatic EYES: Normal reaction of pupils, equal size. NOSE: Clear with pink turbinates. THROAT: No erythema or exudates. NECK: No masses, no JVD. CHEST: No chest wall deformity. LUNGS: Equal air entry with bibasilar rales. No wheezes or rhonchi. No focal dullness. On room air. No conversational dyspnea or accessory muscle use.. CVS: S1 and S2 normal with no audible murmur, regular rhythm. No extra heart sounds ABDOMEN: No hepatosplenomegaly, active bowel sounds, no guarding or rigidity. SPINE: No scoliosis or deformity SKIN: No rashes CENTRAL NERVOUS SYSTEM: No focal deficits, tone is normal in all 4 extremities. EXTREMITIES: There is no peripheral edema, clubbing, or cyanosis. Peripheral pulses are intact. Results - Laboratory Findings CBC and BMP: 11/25/23 04:52 11/25/23 04:52 Abnormal lab findings: Abnormal Labs 11/24/23 11/25/23 19:59 00:36 Troponin I 0.071 H* 0.062 H* - Diagnostic Findings Chest x-ray: image reviewed Assessment and Plan Assessment: Suspected exacerbation of diastolic congestive heart failure, chest x-ray at outside facility interpreted by me to show central vascular congestion with interstitial infiltrates, likely interstitial edema, however, pneumonia is not excluded. NT proBNP elevated 8920. Atrial fibrillation with rapid ventricular rate, converted to normal sinus Acute COVID 19 infection, unable to rule out COVID-pneumonia Acute hypoxemic respiratory failure, secondary to above Elevated troponins, likely related to supply/demand mismatch Pancytopenia Mild intermittent asthma, stable Obstructive sleep apnea Hypothyroidism History of hyperlipidemia Developmental delay Plan: Patient's medications, labs, chest x-ray reviewed Currently on room air, however, did previously require supplemental oxygen Patient did test positive for COVID-19 at outside facility. Negative for influenza, RSV. Receiving IV Decadron Receiving Lovenox for DVT prophylaxis Procalcitonin level was elevated at 0.48. Empirically covered on a combination of azithromycin and Rocephin. Cardiology has been asked to evaluate this patient as well Patient's home dose Lasix has been resumed Atrial fibrillation is converted to normal sinus rhythm. Most recent available echocardiogram is from 2019, would recommend repeat echocardiogram, if no more recent study. Repeat chest x-ray is pending We will continue to follow, and further recommendations are forthcoming I have personally seen and examined the patient, performed the documentation and the assessment and plan as written. Number of minutes spent on the visit:20 Time with Patient: Greater than 30
[2023-11-25 06:41] LABS: Monocytes # (M) 0.16 k/uL (0-1.0); Neutrophils # (M) 0.95 k/uL (1.3-7.7); Neutrophils % (M) 73 %; Nucleated Red Blood Cells 0 /100 WBC (0-0); Total Cells Counted 100
[2023-11-25] MEDS: ALBUTEROL NEBULIZED 2.5 MG/3 ML INHALATION SCH (07:55)
--- NOTE | 2023-11-25 08:17 | XR ---
EXAMINATION TYPE: XR chest 1V portable DATE OF EXAM: 11/25/2023 Comparison: 10/21/2018 Clinical History: 68-year-old female Pneumonia, CHF Findings: Heart upper limits of normal in size. Interstitial density remains. Mild patchy bibasilar opacity als o persist but show slight improvement on the left. Impression: Possible ongoing pulmonary vascular congestion. Patchy bibasilar opacities are also redemonstrated bu t there is some improving aeration at the left base.
[2023-11-25] MEDS: FUROSEMIDE 20 MG TAB PO SCH (09:38)
[2023-11-25] MEDS: SERTRALINE 100 MG TAB PO SCH (09:38)
[2023-11-25] MEDS: LACTULOSE 20 GM/30 ML CUP PO SCH (09:38)
[2023-11-25] MEDS: DILTIAZEM CD 120 MG CAP.ER.24H PO SCH (09:39)
[2023-11-25] MEDS: clonazePAM 0.5 MG TAB PO SCH (09:39)
[2023-11-25] MEDS: ASPIRIN 81 MG PO SCH (09:39)
[2023-11-25] MEDS: miSOPROStoL 100 MCG TAB PO SCH (09:39)
[2023-11-25] MEDS: DIVALPROEX SPRINKLE 125 MG CAP.SPRINK PO SCH (09:39)
[2023-11-25] MEDS: SODIUM BICARBONATE TAB 650 MG TAB PO SCH (09:39)
[2023-11-25] MEDS: DEXAMETHASONE SOD PHOSPHATE 10 MG/ML 1 ML VIAL IVP SCH (09:39)
[2023-11-25] MEDS: BRIMONIDINE TARTRATE 0.2% DROPS 5 ML BTL RIGHT EYE SCH (09:40)
--- NOTE | 2023-11-25 10:51 | P.CRDCN ---
History of Present Illness History of present illness: HISTORY OF PRESENT ILLNESS: This is a 68-year-old female with a past medical history significant for developmental delay, atrial fibrillation, asthma, obstructive sleep apnea, hypothyroidism, and hyperlipidemia. Patient does not follow with a physical security manager at [facility]. We have been asked to see the patient in consultation for A-fib with RVR. Patient initially presented to [facility]. Patient was found to be in A-fib with RVR. She was also found to be positive for COVID. She was transferred to [facility]. Patient examined at the bedside. Patient currently denies any chest pain or pressure. She denies any shortness of breath. Vital signs are stable. Telemetry reveals sinus mechanism. DIAGNOSTICS: - EKG reveals A-fib with RVR - Chest xray possible ongoing pulmonary vascular congestion. Patchy bibasilar opacities are also redemonstrated but there is some improving aeration at the left base. - Laboratory data: WBC 1.3. Hemoglobin 10.5. Platelet count 59. Sodium 142. Potassium 4.4. BUN 33. Creatinine 0.79. Troponin 0. 071. 0.062. 0.061. - Current home cardiac medications include aspirin 81 mg daily, Cardizem 120 mg daily, Lasix 20 mg every 48 hours, rosuvastatin 5 mg at night. - Most recent echocardiogram obtained in 2019 revealed ejection fraction 60 to 65%, mild MR, mild TR REVIEW OF SYSTEMS: At the time of my exam: CONSTITUTIONAL: Denies fever or chills. HEENT: Denies blurred vision, vision changes, or eye pain. Denies hemoptysis CARDIOVASCULAR: Denies chest pain. Denies orthopnea. Denies PND. Denies palp itations RESPIRATORY: Denies shortness of breath. GASTROINTESTINAL: Denies abdominal pain. Denies nausea or vomiting. HEMATOLOGIC: Denies bleeding disorders. GENITOURINARY: Denies any blood in urine. SKIN: Denies pruitis. Denies rash. PHYSICAL EXAM: VITAL SIGNS: Reviewed. GENERAL: Well-developed in no acute distress. HEENT: Head is normocephalic. Pupils are equal, round. Sclerae anicteric. Mucous membranes of the mouth are moist. Neck supple. No JVD or thyromegaly LUNGS: Respirations even and unlabored. Lungs essentially clear to auscultation bilaterally. HEART: Regular rate and rhythm. S1 and S2 heard. ABDOMEN: Soft. Nondistended. Nontender. EXTREMITIES: Normal range of motion. No clubbing or cyanosis. Peripheral pulses intact. No lower extremity edema NEUROLOGIC: Awake and alert. ASSESSMENT: COVID-19 Paroxysmal atrial fibrillation with RVR, currently maintaining sinus mechanism Elevated troponins, flat, not indicative of acute coronary syndrome Pancytopenia Hyperlipidemia History of asthma Hypothyroidism Obstructive sleep apnea PLAN: Obtain 2D echo to assess cardiac structure and function Continue cardiac medications Patient is not on anticoagulation on an outpatient basis which is reasonable considering her pancytopenia Check TSH Continue telemetry monitoring Further recommendations pending patient course Nurse practitioner note has been reviewed by physician. Signing provider agrees with the documented findings, assessment, and plan of care documented by [employer] as a scribe. Past Medical History Past Medical History: Asthma, Chest Pain / Angina, COPD, Osteoarthritis (OA), Thyroid Disorder Additional Past Medical History / Comment(s): mild mental retardation, glucoma,sleep apnea History of Any Multi-Drug Resistant Organisms: Unobtainable Past Surgical History: No Surgical Hx Reported Past Anesthesia/Blood Transfusion Reactions: Previous Problems w/ Anesthesia Past Psychological History: Unable to Obtain Past Alcohol Use History: None Reported, Unable to Obtain Past Drug Use History: None Reported - Past Family History Mother History Unknown: Yes Medications and Allergies Home Medications Medication Instructions Recorded Confirmed Type Acetaminophen [Tylenol Extra 500 - 1,000 mg PO Q6H PRN 10/15/18 11/24/23 History Strength] Ipratropium-Albuterol Nebulize 3 ml INHALATION RT-QID PRN 10/15/18 11/24/23 History [Duoneb 0.5 mg-3 mg/3 ml Soln] Potassium Chloride [K-Tab ER] 10 meq PO Q48H 10/15/18 11/24/23 History Sertraline [Zoloft] 200 mg PO DAILY@0800 10/15/18 11/24/23 History Albuterol Sulfate [Ventolin HFA] 2 puff INHALATION RT-Q4H PRN 11/24/23 11/24/23 History Ascorbic Acid [Vitamin C] 1,000 mg PO DAILY PRN 11/24/23 11/24/23 History Aspirin 81 mg PO DAILY@0800 11/24/23 11/24/23 History Benadryl [place] 2-0.1% 1 applic TOPICAL QID PRN 11/24/23 11/24/23 History Brimonidine Tartrate [Alphagan P 1 drops RIGHT EYE BID 11/24/23 11/24/23 History 0.2% Ophth Soln] Cholecalciferol (Vitamin D3) 50 mcg PO DAILY@0800 11/24/23 11/24/23 History [Vitamin D3 (50 Mcg = 2000 Iu)] Divalproex Sprinkle [Depakote 375 mg PO TID@0800,170,199911/24/23 11/24/23 History Sprinkle] Furosemide [Lasix] 20 mg PO Q48H 11/24/23 11/24/23 History Lactulose 20 gm PO DAILY@00 11/24/23 11/24/23 History Latanoprost [Latanoprost 0.005%] 1 drop BOTH EYES HS@199911/24/23 11/24/23 History Levothyroxine Sodium [Synthroid] 88 mcg PO DAILY@0811/24/23 11/24/23 History Lidocaine 4% Patch 1 patch TOPICAL DAILY PRN 11/24/23 11/24/23 History Meclizine [Antivert] 12.5 - 25 mg PO BID PRN 11/24/23 11/24/23 History Naproxen [Naprosyn] 500 mg PO BID@0800,199911/24/23 11/24/23 History Rosuvastatin Calcium 5 mg PO HS@199911/24/23 11/24/23 History Sodium Bicarbonate Tab 650 mg PO TID@0800,1700,199911/24/23 11/24/23 History clonazePAM [KlonoPIN] 0.25 mg PO DAILY@0800 11/24/23 11/24/23 History dilTIAZem HCL [Cartia Xt] 120 mg PO DAILY@0800 11/24/23 11/24/23 History miSOPROStoL 100 mcg PO BID@0800,1700 11/24/23 11/24/23 History Allergies Allergy/AdvReac Type Severity Reaction Status Date / Time No Known Allergies Allergy Verified 11/24/23 21:07 Physical Exam Vitals: Vital Signs Temp Pulse Pulse Resp BP BP Pulse Ox 11/25/23 07:53 98 02/22/24 03:25 98 F 67 16 116/64 94 L 11/24/23 23:25 97.7 F 85 18 114/64 96 11/24/23 23:00 76 16 117/77 98 11/24/23 22:50 78 16 117/77 98 11/24/23 22:40 83 16 117/77 98 11/24/23 22:30 77 16 115/78 98 11/24/23 22:20 78 16 115/78 98 11/24/23 21:10 80 16 101/65 95 11/24/23 20:20 78 16 99/64 94 L 11/24/23 19:42 98.4 F 94 18 102/50 94 L Intake and Output 11/24/23 11/25/23 11/25/23 22:59 06:59 14:59 Intake Total 360 Output Total 100 Balance -100 360 Intake: Oral 360 Output: Urine 100 Other: Voiding Method External Catheter Weight 74.389 kg 56.245 kg Results 11/25/23 04:52 11/25/23 04:52 Cardiac Enzymes 11/24/23 11/25/23 11/25/23 Range/Units 19:59 00:36 04:52 Troponin I 0.071 H* 0.062 H* 0.061 H* (0.000-0.034) ng/mL CBC 11/25/23 Range/Units 04:52 WBC 1.3 L* (3.8-10.6) k/uL RBC 3.00 L (3.80-5.40) m/uL Hgb 10.5 L (11.4-16.0) gm/dL Hct 31.1 L (34.0-46.0) % Plt Count 59 L (150-450) k/uL Comprehensive Metabolic Panel 11/25/23 Range/Units 04:52 Sodium 142 (137-145) mmol/L Potassium 4.4 (3.5-5.1) mmol/L Chloride 111 H (98-107) mmol/L Carbon Dioxide 24 (22-30) mmol/L BUN 33 H (7-17) mg/dL Creatinine 0.79 (0.52-1.04) mg/dL Glucose 136 H (74-99) mg/dL Calcium 8.7 (8.4-10.2) mg/dL Current Medications Generic Name Dose Route Start Last Admin Trade Name Freq PRN Reason Stop Dose Admin Acetaminophen 650 mg 11/25/23 00:51 Acetaminophen Tab 500 Mg Tab PO Q6H PRN Pain Albuterol Sulfate 2.5 mg 11/25/23 08:00 11/25/23 07:55 Albuterol Nebulized 2.5 Mg/3 Ml INHALATION Not Given RT-QID [facility] Albuterol/Ipratropium 3 ml 11/25/23 00:51 Ipratropium-Albuterol 3 Ml Neb INHALATION RT-QID PRN Shortness Of Breath Aspirin 81 mg 11/25/23 08:00 11/25/23 09:39 Aspirin 81 Mg PO 81 mg DAILY@0800 [facility] Administration Brimonidine Tartrate 1 drops 11/25/23 09:00 11/25/23 09:40 Brimonidine Tartrate 0.2% Drops 5 Ml Btl RIGHT EYE 1 drops BID [facility] Administration Clonazepam 0.25 mg 11/25/23 08:00 11/25/23 09:39 Clonazepam 0.5 Mg Tab PO 0.25 mg DAILY@0800 [facility] Administration Dexamethasone Sodium Phosphate 6 mg 11/25/23 09:00 11/25/23 09:39 Dexamethasone Sod Phosphate 10 Mg/Ml 1 Ml Vial IVP 6 mg DAILY [facility] Administration Diltiazem HCl 120 mg 11/25/23 08:00 11/25/23 09:39 Diltiazem Cd 120 Mg Cap.Er.24h PO 120 mg DAILY@0800 [facility] Administration Divalproex Sodium 375 mg 11/25/23 08:00 11/25/23 09:39 Divalproex Sprinkle 125 Mg Cap.Sprink PO 375 mg TID@0800,1700,2000 [facility] Administration Furosemide 20 mg 11/25/23 09:00 11/25/23 09:38 Furosemide 20 Mg Tab PO 20 mg Q48H [facility] Administration Azithromycin 500 mg/ Sodium 250 mls @ 250 mls/hr 11/25/23 16:00 Chloride IVPB 11/27/23 16:59 DAILY@1600 [facility] Protocol Ceftriaxone Sodium 2 gm/ 50 mls @ 100 mls/hr 11/25/23 16:00 Sodium Chloride IVPB Q24H [facility] Protocol Lactulose 20 gm 11/25/23 08:00 11/25/23 09:38 Lactulose 20 Gm/30 Ml Cup PO 20 gm DAILY@0800 [facility] Administration Latanoprost 1 drops 11/25/23 20:00 Latanoprost 0.005% Ophth Drops 2.5 Ml Btl BOTH EYES HS@1999 [facility] Levothyroxine Sodium 88 mcg 11/25/23 06:30 11/25/23 06:36 Levothyroxine 88 Mcg Tab PO 88 mcg DAILY@0630 [facility] Administration Misoprostol 100 mcg 11/25/23 08:00 11/25/23 09:39 Misoprostol 100 Mcg Tab PO 100 mcg BID@0800,1700 [facility] Administration Naloxone HCl 0.2 mg 11/24/23 22:01 Naloxone 0.4 Mg/Ml 1 Ml Vial IV Q2M PRN Opioid Reversal Sertraline HCl 200 mg 11/25/23 08:00 11/25/23 09:38 Sertraline 100 Mg Tab PO 200 mg DAILY@0800 [facility] Administration Sodium Bicarbonate 650 mg 11/25/23 08:00 11/25/23 09:39 Sodium Bicarbonate Tab 650 Mg Tab PO 650 mg TID@0800,170,1999 [facility] Administration Intake and Output 11/24/23 11/25/23 11/25/23 22:59 06:59 14:59 Intake Total 360 Output Total 100 Balance -100 360 Intake: Oral 360 Output: Urine 100 Other: Voiding Method External Catheter Weight 74.389 kg 56.245 kg 11/25/23 04:52 11/25/23 04:52
[2023-11-25 13:15] LABS: T4, Free (Free Thyroxine) 1.19 ng/dL (0.78-2.19)
[2023-11-25 13:21] LABS: INR 0.9 (<1.2); Partial Thromboplastin Time 30.9 sec (22.0-30.0); Prothrombin Time 9.7 sec (10.0-12.5)
--- NOTE | 2023-11-25 15:05 | P.CONS ---
History of Present Illness - Reason for Consult Consult date: 11/25/23 pancytopenia Requesting physician: Lul Hightower - Chief Complaint transfer for a-fib RVR - History of Present Illness Ms. Silva is a pleasant female, intellectually disabled since , lives in adult foster care, multiple medical issues that are fairly well-controlled. She was seen initially by hematology in April 2023 for pancytopenia, WBC 4.4 Hgb 11.3, PLT 84. Mildly elevated MCV, differential was normal other than mild lymphopenia. There was no history of blood related problems or malignancy, alcohol use or cirrhotic liver disease, autoimmune disease. Patient is on Depakote for seizures. CTAP was done, no abnormality of the liver or spleen but, noncontrast study. Echo revealed normal LVEF. After extensive laboratory workup and no underlying cause identified, it was felt that patient was likely having some marrow suppression from Depakote, with transient worsening due to acute illness. Patient had repeat CBC after her hospitalization, hemoglobin was 13, WBC 2.9, PLT 129,000. Despite abnormal labs, they are well within a safe range. Was not felt that any medication changes were necessary. Observation was recommended. Patient was last seen in the office 08/30/2023, she has a follow-up next month. Patient is currently admitted as a transfer from [place] for higher level of care. She was seen initially for dizziness, workup showed atrial fibrillation with RVR, she was hypoxic requiring oxygen, chest x-ray showed vascular congestion versus infiltrates, she was started on antibiotics, COVID testing was positive. Labs here show a WBC of 1.3, ANC 950, Hgb of 10.5, PLT 59,000. Patient is not able to provide much information otherwise but, she appears comfortable, no significant distress. w Review of Systems ROS unobtainable: due to mental status Past Medical History Past Medical History: Asthma, Chest Pain / Angina, COPD, Osteoarthritis (OA), Thyroid Disorder Additional Past Medical History / Comment(s): mild mental retardation, glucoma,sleep apnea History of Any Multi-Drug Resistant Organisms: Unobtainable Past Surgical History: No Surgical Hx Reported Past Anesthesia/Blood Transfusion Reactions: Previous Problems w/ Anesthesia Past Psychological History: Unable to Obtain Past Alcohol Use History: None Reported, Unable to Obtain Past Drug Use History: None Reported - Past Family History Mother History Unknown: Yes Medications and Allergies Home Medications Medication Instructions Recorded Confirmed Type Acetaminophen [Tylenol Extra 500 - 1,000 mg PO Q6H PRN 10/15/18 11/24/23 History Strength] Ipratropium-Albuterol Nebulize 3 ml INHALATION RT-QID PRN 10/15/18 11/24/23 History [Duoneb 0.5 mg-3 mg/3 ml Soln] Potassium Chloride [K-Tab ER] 10 meq PO Q48H 10/15/18 11/24/23 History Sertraline [Zoloft] 200 mg PO DAILY@0800 10/15/18 11/24/23 History Albuterol Sulfate [Ventolin HFA] 2 puff INHALATION RT-Q4H PRN 11/24/23 11/24/23 History Ascorbic Acid [Vitamin C] 1,000 mg PO DAILY PRN 11/24/23 11/24/23 History Aspirin 81 mg PO DAILY@0800 11/24/23 11/24/23 History Benadryl [place] 2-0.1% 1 applic TOPICAL QID PRN 11/24/23 11/24/23 History Brimonidine Tartrate [Alphagan P 1 drops RIGHT EYE BID 11/24/23 11/24/23 History 0.2% Ophth Soln] Cholecalciferol (Vitamin D3) 50 mcg PO DAILY@0800 11/24/23 11/24/23 History [Vitamin D3 (50 Mcg = 2000 Iu)] Divalproex Sprinkle [Depakote 375 mg PO TID@0800,1700,199911/24/23 11/24/23 History Sprinkle] Furosemide [Lasix] 20 mg PO Q48H 11/24/23 11/24/23 History Lactulose 20 gm PO DAILY@0800 11/24/23 11/24/23 History Latanoprost [Latanoprost 0.005%] 1 drop BOTH EYES HS@199911/24/23 11/24/23 History Levothyroxine Sodium [Synthroid] 88 mcg PO DAILY@0800 11/24/23 11/24/23 History Lidocaine 4% Patch 1 patch TOPICAL DAILY PRN 11/24/23 11/24/23 History Meclizine [Antivert] 12.5 - 25 mg PO BID PRN 11/24/23 11/24/23 History Naproxen [Naprosyn] 500 mg PO BID@0800,199911/24/23 11/24/23 History Rosuvastatin Calcium 5 mg PO HS@199911/24/23 11/24/23 History Sodium Bicarbonate Tab 650 mg PO TID@0800,1700,199911/24/23 11/24/23 History clonazePAM [KlonoPIN] 0.25 mg PO DAILY@0800 11/24/23 11/24/23 History dilTIAZem HCL [Cartia Xt] 120 mg PO DAILY@0800 11/24/23 11/24/23 History miSOPROStoL 100 mcg PO BID@0800,1700 11/24/23 11/24/23 History Allergies Allergy/AdvReac Type Severity Reaction Status Date / Time No Known Allergies Allergy Verified 11/24/23 21:07 Physical Exam Vitals: Vital Signs Temp Pulse Pulse Resp BP BP Pulse Ox 11/25/23 11:50 78 11/25/23 11:41 74 11/25/23 08:00 97.5 F L 66 18 118/70 99 11/25/23 07:53 98 11/25/23 03:25 98 F 67 16 116/64 94 L 11/24/23 23:25 97.7 F 85 18 114/64 96 11/24/23 23:00 76 16 117/77 98 11/24/23 22:50 78 16 117/77 98 11/24/23 22:40 83 16 117/77 98 11/24/23 22:30 77 16 115/78 98 11/24/23 22:20 78 16 115/78 98 11/24/23 21:10 80 16 101/65 95 11/24/23 20:20 78 16 99/64 94 L 11/24/23 19:42 98.4 F 94 18 102/50 94 L Intake and Output 11/24/23 11/25/23 11/25/23 22:59 06:59 14:59 Intake Total 360 Output Total 100 Balance -100 360 Intake: Oral 360 Output: Urine 100 Other: Voiding Method External Catheter External Catheter Weight 74.389 kg 56.245 kg - Constitutional General appearance: average body habitus, cooperative, no acute distress - EENT Eyes: anicteric sclerae, EOMI ENT: hearing grossly normal - Neck Neck: no lymphadenopathy - Respiratory Respiratory: bilateral: rales (inspiratory) - Cardiovascular Rhythm: irregularly irregular Heart sounds: normal: S1, S2 Abnormal Heart Sounds: no systolic murmur, no diastolic murmur, no rub, no S3 Gallop, no S4 Gallop, no click, no other - Gastrointestinal General gastrointestinal: no absent bowel sounds, no decreased bowel sounds, no distended, no hepatomegaly, no hyperactive bowel sounds, normal bowel sounds, no organomegaly, no rigid, no scaphoid, soft, no splenomegaly, no tenderness, no umbilical hernia, no ventral hernia - Integumentary Integumentary: normal Results CBC & Chem 7: 11/25/23 04:52 11/25/23 04:52 Labs: Abnormal Lab Results - Last 24 Hours (Table) 11/24/23 11/25/23 11/25/23 Range/Units 19:59 00:36 04:52 WBC (3.8-10.6) k/uL RBC (3.80-5.40) m/uL Hgb (11.4-16.0) gm/dL Hct (34.0-46.0) % MCV (80.0-100.0) fL Plt Count (150-450) k/uL Neutrophils # (Manual) (1.3-7.7) k/uL Lymphocytes # (Manual) (1.0-4.8) k/uL Chloride (98-107) mmol/L BUN (7-17) mg/dL Glucose (74-99) mg/dL Troponin I 0.071 H* 0.062 H* 0.061 H* (0.000-0.034) ng/mL TSH (0.465-4.680) mIU/L 11/25/23 11/25/23 11/25/23 Range/Units 04:52 04:52 04:52 WBC 1.3 L* (3.8-10.6) k/uL RBC 3.00 L (3.80-5.40) m/uL Hgb 10.5 L (11.4-16.0) gm/dL Hct 31.1 L (34.0-46.0) % MCV 103.7 H (80.0-100.0) fL Plt Count 59 L (150-450) k/uL Neutrophils # (Manual) 0.95 L (1.3-7.7) k/uL Lymphocytes # (Manual) 0.20 L (1.0-4.8) k/uL Chloride 111 H (98-107) mmol/L BUN 33 H (7-17) mg/dL Glucose 136 H (74-99) mg/dL Troponin I (0.000-0.034) ng/mL TSH 0.036 L (0.465-4.680) mIU/L Chest x-ray: report reviewed Assessment and Plan (1) Pancytopenia Current Visit: Yes Status: Chronic Priority: Medium Code(s): D61.818 - OTHER PANCYTOPENIA SNOMED Code(s): 907214159 Plan: Pancytopenia -Extensively worked up by Hematology in Jun 2023. Last seen in ofc August 05, 2023. -Extensive workup, felt that pancytopenia was most likely [id number]. -Pancytopenia worsens when patient is experiencing an acute illness. -Patient currently being treated for COVID infection as well as heart failure. -WBC 1.3, ANC 950, hemoglobin 10.5, platelets 59,000. No acute intervention. CBC monitoring daily. -Acute labs ordered, including fibrinogen, coags, acute hepatitis panel and JESSI will be ordered. -Will follow-up, further testing will be done if warranted. Doctor attests: I performed a history and physical examination of this patient, developed impression and plan of care. Discussed with dictator. I agree with dictators note, documented as a scribe.
[2023-11-25] MEDS: AZITHROMYCIN 500 MG in SODIUM CHLORIDE 0.9% 250 ML IVPB SCH (17:53)
--- NOTE | 2023-11-25 19:07 | P.PN ---
Subjective Progress Note Date: 11/25/23 (delayed charting seen at 0930) Patient is a 68-year-old female with significant developmental delay, COPD, angina, hypothyroidism, and sleep apnea who initially presented to the emergency department at [facility] due to rapid heart rate. In the emergency department there she underwent a significant evaluation. She was found to be COVID- positive. Chest x-ray showed mild infiltrates. Laboratory analysis was remarkable for BNP 8920, procalcitonin 0.48, AST 95, ALT 70, alkaline phosphatase 175, lactic acid 2.3, TSH 0.16, troponin mildly elevated at 0.032. He was noted to be pancytopenic. She was started on IV antibiotics with Rocephin and Zithromax. Due to her elevated troponin and A-fib with RVR she was transferred to our facility. She was started on Decadron, droplet precautions. She was continued on p.o. Lasix. Troponin was trended. Patient seen and examined at bedside. She is mildly verbal. She shakes head no to being in pain, she shakes head yes to being short of breath. Vital signs reviewed General: Nontoxic, no distress, appears at stated age Cardiovascular: S1S2 reg, no murmur Lungs: Coarse breath sounds bilateral, no rhonchi, no rales, no accessory muscle use Abdominal: Soft, nontender to palpation, no guarding Ext: No gross muscle atrophy, no edema b/l lower extremities, no contractures Neuro: CN II-XI grossly intact, no focal neuro deficits Psych: Alert, oriented to self, appropriate affect Assessment/Plan: Acute COVID-19 infection Transaminitis Lactic acidosis -Continue with as needed DuoNebs, Rocephin 2 g IV every 24 hours day #2, Zithromax 500 mg IV piggyback every 24 hours day #1 -Decadron 6 mg IV push daily - repeat CMP in AM -Pulmonary consultation and reviewed: Continue current plan of care. Pancytopenia -Hematology note reviewed: Extensively worked up by hematology in June 2023 felt that pancytopenia was drug-induced secondary to Depakote. Pancytopenia likely worsening due to acute illness. -Repeat CBC in a.m. A-fib with rapid ventricular response Elevated troponin, type II non-STEMI, flat. Not consistent with coronary artery disease. -Cardiology note reviewed: Obtain 2D echo, continue current cardiac medications, patient is not on anticoagulation as an outpatient which is reasonable given her pancytopenia -Cardizem 120 mg daily -Lasix 20 mg every 48 hours Imaging: Chest x-ray: Possible ongoing pulmonary vascular congestion with patchy bilateral opacities Data Review: Labs reviewed from today include CBC and basic metabolic profile which are juve rkable for white blood cell count 1.3, hemoglobin 10.5, platelets 59, BUN 33. Troponin has been stable at 0.071. DVT prophylaxis: SCDs Anticipated discharge date: Pending Clinical Course Anticipated discharge place: Pending Clinical Course This dictation was prepared using [employer] voice recognition software. Though every attempt is made to correct errors during dictation some may still exist. Objective - Vital Signs Vital signs: Vital Signs Temp 97.5 F L 11/25/23 08:00 Pulse 76 11/25/23 16:00 Resp 18 11/25/23 16:00 BP 122/75 11/25/23 16:00 Pulse Ox 97 11/25/23 16:00 FiO2 Intake & Output 11/25/23 11/25/23 11/26/23 06:59 18:59 06:59 Intake Total 720 Output Total 100 200 Balance -100 520 Weight 56.245 kg Intake: Oral 720 Output: Urine 100 200 Other: Voiding Method External Catheter External Catheter - Labs CBC & Chem 7: 11/25/23 04:52 11/25/23 04:52 Labs: Abnormal Lab Results - Last 24 Hours (Table) 11/24/23 11/25/23 11/25/23 Range/Units 19:59 00:36 04:52 WBC (3.8-10.6) k/uL RBC (3.80-5.40) m/uL Hgb (11.4-16.0) gm/dL Hct (34.0-46.0) % MCV (80.0-100.0) fL Plt Count (150-450) k/uL Neutrophils # (Manual) (1.3-7.7) k/uL Lymphocytes # (Manual) (1.0-4.8) k/uL PT (10.0-12.5) sec APTT (22.0-30.0) sec Fibrinogen (200-500) mg/dL Chloride (98-107) mmol/L BUN (7-17) mg/dL Glucose (74-99) mg/dL Troponin I 0.071 H* 0.062 H* 0.061 H* (0.000-0.034) ng/mL TSH (0.465-4.680) mIU/L 11/25/23 11/25/23 11/25/23 Range/Units 04:52 04:52 04:52 WBC 1.3 L* (3.8-10.6) k/uL RBC 3.00 L (3.80-5.40) m/uL Hgb 10.5 L (11.4-16.0) gm/dL Hct 31.1 L (34.0-46.0) % MCV 103.7 H (80.0-100.0) fL Plt Count 59 L (150-450) k/uL Neutrophils # (Manual) 0.95 L (1.3-7.7) k/uL Lymphocytes # (Manual) 0.20 L (1.0-4.8) k/uL PT (10.0-12.5) sec APTT (22.0-30.0) sec Fibrinogen (200-500) mg/dL Chloride 111 H (98-107) mmol/L BUN 33 H (7-17) mg/dL Glucose 136 H (74-99) mg/dL Troponin I (0.000-0.034) ng/mL TSH 0.036 L (0.465-4.680) mIU/L 11/25/23 Range/Units 12:38 WBC (3.8-10.6) k/uL RBC (3.80-5.40) m/uL Hgb (11.4-16.0) gm/dL Hct (34.0-46.0) % MCV (80.0-100.0) fL Plt Count (150-450) k/uL Neutrophils # (Manual) (1.3-7.7) k/uL Lymphocytes # (Manual) (1.0-4.8) k/uL PT 9.7 L (10.0-12.5) sec APTT 30.9 H (22.0-30.0) sec Fibrinogen 629 H (200-500) mg/dL Chloride (98-107) mmol/L BUN (7-17) mg/dL Glucose (74-99) mg/dL Troponin I (0.000-0.034) ng/mL TSH (0.465-4.680) mIU/L
[2023-11-25] MEDS: LATANOPROST 0.005% OPHTH DROPS 2.5 ML BTL BOTH EYES SCH (20:33)
[2023-11-26 07:58] LABS: Basophils % (A) 1 %; Eosinophils % (A) 1 %; HCT 31.1 % (34.0-46.0); HGB 10.7 gm/dL (11.4-16.0); Lymphocytes # (A) 0.3 k/uL (1.0-4.8); Lymphocytes % (A) 11 %; MCH 34.8 pg (25.0-35.0); MCHC 34.3 g/dL (31.0-37.0); MCV 101.4 fL (80.0-100.0); Monocytes # (A) 0.2 k/uL (0-1.0); Monocytes % (A) 7 %; Neutrophils % (A) 80 %; RBC 3.06 m/uL (3.80-5.40); RDW 12.4 % (11.5-15.5); WBC 2.4 k/uL (3.8-10.6)
[2023-11-26 08:01] LABS: Platelet Count 70 k/uL (150-450)
[2023-11-26] MEDS: ALBUTEROL HFA INHALER INHALATION SCH (09:05)
--- NOTE | 2023-11-26 09:05 | CA ---
Transthoracic Echo Report Name: Miranda Krishnan Age: 68 Gender: F : 1955 Exam Date: 11/25/2023 11:50 Exam Location: [facility] Ht (in): 65 Wt (lb): 124 Ordering Physician: Angle Barba Attending/Referring Phys: [id number], [employer] Structural Engineer Yvette Aceves RDCS Procedure CPT: Indications: LV function Cardiac Hx: Technical Quality: Contrast 1: Total Dose (mL): Contrast 2: Total Dose (mL): MEASUREMENTS (Male / Female) Normal Values 2D ECHO LV Diastolic Diameter PLAX 4.3 cm 4.2 - 5.9 / 3.9 - 5.3 cm LV Systolic Diameter PLAX 3.7 cm IVS Diastolic Thickness 1.1 cm 0.6 - 1.0 / 0.6 - 0.9 cm LVPW Diastolic Thickness 0.7 cm 0.6 - 1.0 / 0.6 - 0.9 cm LV Relative Wall Thickness 0.4 LVOT Diameter 2.0 cm Aortic Root Diameter 3.1 cm LA Systolic Diameter LX 4.5 cm 3.0 - 4.0 / 2.7 - 3.8 cm LV Diastolic Volume MOD BP 60.3 cm??? 67 - 155 / 56 - 104 cm??? LV Systolic Volume MOD BP 19.4 cm??? 22 - 58 / 19 - 49 cm??? LV Ejection Fraction MOD BP 67.9 % >= 55 % LV Cardiac Index MOD BP 1837.5 cm???/min???m??? LV Diastolic Volume MOD 4C 56.2 cm??? LV Systolic Volume MOD 4C 19.0 cm??? LV Ejection Fraction MOD 4C 66.2 % LV Cardiac Index MOD 4C 1670.4 cm???/min???m??? LV Diastolic Length 4C 6.6 cm LV Systolic Length 4C 5.5 cm LV Diastolic Volume MOD 2C 62.9 cm??? LV Systolic Volume MOD 2C 21.6 cm??? LV Ejection Fraction MOD 2C 65.7 % LV Cardiac Index MOD 2C 1855.4 cm???/min???m??? LV Diastolic Length 2C 7.1 cm LV Systolic Length 2C 5.4 cm LA Volume 43.4 cm??? 18 - 58 / 22 - 52 cm??? LA Volume Index 27.0 cm???/m??? 16 - 28 cm???/m??? DOPPLER AV Peak Velocity 255.6 cm/s AV Peak Gradient 26.1 mmHg AV Mean Velocity 187.2 cm/s AV Mean Gradient 15.0 mmHg AV Velocity Time Integral 57.0 cm AI Peak Velocity 428.6 cm/s AI Peak Gradient 73.5 mmHg AI Pressure Half Time 368.4 ms LVOT Peak Velocity 102.3 cm/s LVOT Peak Gradient 4.2 mmHg LVOT Velocity Time Integral 25.2 cm LVOT Stroke Volume 78.3 cm??? LVOT Stroke Volume Index 48.5 ml/m??? LVOT Cardiac Index 3513.6 cm???/min???m??? AV Area Cont Eq vti 1.4 cm??? AV Area Cont Eq pk 1.2 cm??? MV Area PHT 4.6 cm??? MR Peak Velocity 514.5 cm/s MR Peak Gradient 105.9 mmHg Mitral E Point Velocity 125.7 cm/s Mitral A Point Velocity 104.7 cm/s Mitral E to A Ratio 1.2 MV Deceleration Time 166.2 ms TR Peak Velocity 218.5 cm/s TR Peak Gradient 19.1 mmHg PV Peak Velocity 58.6 cm/s PV Peak Gradient 1.4 mmHg FINDINGS Left Ventricle Mildly increased septal wall thickness. Left ventricular ejection fraction is estimated at 50-55 %. No obvious regional wall motion abnormalities. Right Ventricle Normal right ventricular size and function. Right Atrium Normal right atrial size. Left Atrium Moderately increased left atrial diameter. Mitral Valve [id number] mitral regurgitation. Aortic Valve Aortic valve not well visualized. Tricuspid Valve Mild tricuspid regurgitation. Pulmonic Valve Trace to mild pulmonic regurgitation. Pericardium No pericardial effusion. Aorta Normal size. CONCLUSIONS Previous echo recorded on 10/17/2018. Previewed by: Dr Efrain Gorman (Electronically Signed) Final Date: 26 November 2023 09:04
--- NOTE | 2023-11-26 11:16 | P.PN ---
Subjective Progress Note Date: 11/26/23 Principal diagnosis: Atrial fibrillation. I am seeing this patient in consultation today 11/25/2023 after she was transfer [facility] for A-fib RVR and was found to be COVID-positive. Patient is a 68-year-old white female with past medical history significant for develop mental delay, atrial fibrillation, asthma, obstructive sleep apnea, hypothyroidism, hyperlipidemia, among other things. Patient does have developmental delay, and is a poor historian. She lives at [facility] home. I did review the chart from [facility]. Apparently she presented with complain ts of dizziness and vague URI-like symptoms. She was found to be in A-fib RVR, with a heart rate of 160 bpm. She was started on a Cardizem infusion. Chest x- ray at the outside facility, interpreted by me, shows central vascular congestion and interstitial infiltrates, likely interstitial edema versus pneumonia. Patient did test positive for COVID on arrival to the outside facility. Apparently several workers and residents at the [facility] home have been sick. CBC at the outside facility: WBC count 2.09, hemoglobin 10.6, hematocrit 33.4, platelets 61,000. BMP at outside facility: Sodium 139, potassium 3.6, chloride 106, serum bicarb 29, BUN 31, creatinine 1.1, glucose 111. AST 95, ALT 70, ALP 175. Lactic acid level was mildly elevated at 2.3. Troponins elevated at 0.32, 0.071, and 0.062 respectively. NT proBNP was significantly elevated 8920. Shortly after transfer to [facility], the patient's heart rhythm converted back to normal sinus rhythm. The Cardizem infusion was stopped. Admitted to the cardiac stepdown unit. Patient is currently sitting in bed, on room air, in no acute distress. She is eating Lays potato chips. SpO2 is 94%. She was previously on 1.5 L nasal cannula. She denies any significant chest pain, heart palpitations, or lightheadedness. She does report runny nose, sore throat, and nonproductive cough. She remains afebrile. She was empirically started on Rocephin and azithromycin. Procalcitonin was elevated at the outside facility at 0.48. Vital signs are stable. Progress note dated November 26, 2023. 68-year-old female transferred down from [facility], for atrial fibrillation with RVR, and testing positive for coronavirus. The patient has a history of atrial fibrillation, developmental delay, asthma, sleep apnea, hypothyroidism, and hyperlipidemia. The patient is seen today in room 365. She is on room air. Saturations are only 87 to 88%. I have asked the nurse to place the patient back on oxygen by nasal cannula at between 1 to 2 L/min. She is getting saline at KVO. Labs today include a white count 2.4, hemoglobin 10.7, hematocrit 31.1, and a platelet count of 70,000. We have ordered an N-terminal proBNP, and a procalcitonin level. Objective - Vital Signs Vital signs: Vital Signs Temp 98.2 F 11/26/23 08:00 Pulse 70 11/26/23 08:00 Resp 18 11/26/23 08:00 BP 122/82 11/26/23 08:00 Pulse Ox 97 11/26/23 09:05 FiO2 Intake & Output 11/25/23 11/26/23 11/26/23 18:59 06:59 18:59 Intake Total 720 180 Output Total 200 500 Balance 520 -320 Intake: Oral 720 180 Output: Urine 200 500 Other: Voiding Method External Catheter External Catheter External Catheter - Exam No acute distress, oriented 3. Currently on room air. Saturations are 87 to 88%. She does not appear to be short of breath. HEENT examination is grossly unremarkable. Mucous membranes are moist. No oral lesions. Neck supple. Full range of motion. No adenopathy thyromegaly or neck vein distention. Cardiovascular examination reveals regular rhythm rate. S1-S2 normal. No S3 or S4. No discernible murmur noted. The patient is in sinus rhythm. Heart rate 70 bpm. Lungs reveal mostly clear breath sounds. Minimal rhonchi. No wheezes or crackles. Breath sounds equal bilaterally. Saturations are 97% on 1.5 L of oxygen. Abdomen soft bowel sounds are heard. No masses or tenderness. Extremities are intact. No cyanosis clubbing or edema. Skin is without rash or lesion. Neurologic examination is brief but nonfocal. - Labs CBC & Chem 7: 11/26/23 07:35 11/25/23 04:52 Labs: Abnormal Lab Results - Last 24 Hours (Table) 11/25/23 11/25/2311/25/24 Range/Units 04:52 12:38 19:10 WBC (3.8-10.6) k/uL RBC (3.80-5.40) m/uL Hgb (11.4-16.0) gm/dL Hct (34.0-46.0) % MCV (80.0-100.0) fL Plt Count (150-450) k/uL Lymphocytes # (1.0-4.8) k/uL PT 9.7 L (10.0-12.5) sec APTT 30.9 H (22.0-30.0) sec Fibrinogen 629 H (200-500) mg/dL Plasma Lactic Acid Dejuan 3.9 H* (0.7-2.0) mmol/L TSH 0.036 L (0.465-4.680) mIU/L 11/25/23 11/26/23 Range/Units 22:43 07:35 WBC 2.4 L (3.8-10.6) k/uL RBC 3.06 L (3.80-5.40) m/uL Hgb 10.7 L (11.4-16.0) gm/dL Hct 31.1 L (34.0-46.0) % MCV 101.4 H (80.0-100.0) fL Plt Count 70 L (150-450) k/uL Lymphocytes # 0.3 L (1.0-4.8) k/uL PT (10.0-12.5) sec APTT (22.0-30.0) sec Fibrinogen (200-500) mg/dL Plasma Lactic Acid Dejuan 2.3 H* (0.7-2.0) mmol/L TSH (0.465-4.680) mIU/L Assessment and Plan Assessment: Exacerbation of diastolic congestive heart failure. Atrial fibrillation with rapid ventricular rate, converted to normal sinus. Acute COVID 19 infection, doubt coronavirus associated pneumonia. Acute hypoxemic respiratory failure. Elevated troponins, likely related to supply/demand mismatch. Pancytopenia. Mild intermittent asthma, stable. Obstructive sleep apnea. Hypothyroidism. History of hyperlipidemia. Developmental delay. Plan: Plan dated November 26, 2023. The patient is now in normal sinus rhythm. The patient is on 1 and half liters of oxygen, with saturations of 97%. The patient appears not to be short of breath, even on room air, with saturations in the high 80s. The patient is getting saline at KVO. We will check an N-terminal proBNP, and a procalcitonin level. The patient continues on azithromycin, and Rocephin. The patient is also on Decadron, 6 mg a day. We will continue to follow make recommendations along the way. We may modify things, once we see the N-terminal proBNP level, and procalcitonin level. Again, the patient looks very stable. Time with Patient: Less than 30
--- NOTE | 2023-11-26 11:44 | P.PN ---
Subjective HISTORY OF PRESENT ILLNESS: This is a 68-year-old female with a past medical history significant for developmental delay, atrial fibrillation, asthma, obstructive sleep apnea, hypothyroidism, and hyperlipidemia. Patient does not follow with a high energy forming equipment operator at [facility]. We have been asked to see the patient in consultation for A-fib with RVR. Patient initially presented to [facility]. Patient was found to be in A-fib with RVR. She was also found to be positive for COVID. She was transferred to [facility]. Patient examined at the bedside. Patient currently denies any chest pain or pressure. She denies any shortness of breath. Vital signs are stable. Telemetry reveals sinus mechanism. DIAGNOSTICS: - EKG reveals A-fib with RVR - Chest xray possible ongoing pulmonary vascular congestion. Patchy bibasilar opacities are also redemonstrated but there is some improving aeration at the left base. - Laboratory data: WBC 1.3. Hemoglobin 10.5. Platelet count 59. Sodium 142. Potassium 4.4. BUN 33. Creatinine 0.79. Troponin 0. 071. 0.062. 0.061. - Current home cardiac medications include aspirin 81 mg daily, Cardizem 120 mg daily, Lasix 20 mg every 48 hours, rosuvastatin 5 mg at night. - Most recent echocardiogram obtained in 2018 revealed ejection fraction 60 to 65%, mild MR, mild TR 11/26/2023 Patient examined this morning at the bedside. Patient denies chest pain or pressure. She denies shortness of breath. Vital signs are stable. She is maintaining sinus mechanism. Echocardiogram completed revealing ejection fraction 50 to 55%, mild to moderate MR, mild TR PHYSICAL EXAM: VITAL SIGNS: Reviewed. GENERAL: Well-developed in no acute distress. HEENT: Head is normocephalic. Pupils are equal, round. Sclerae anicteric. Mucous membranes of the mouth are moist. Neck supple. No JVD or thyromegaly LUNGS: Respirations even and unlabored. Lungs essentially clear to auscultation bilaterally. HEART: Regular rate and rhythm. S1 and S2 heard. ABDOMEN: Soft. Nondistended. Nontender. EXTREMITIES: Normal range of motion. No clubbing or cyanosis. Peripheral pulses intact. No lower extremity edema NEUROLOGIC: Awake and alert. ASSESSMENT: COVID-19 Paroxysmal atrial fibrillation with RVR, currently maintaining sinus mechanism Elevated troponins, flat, not indicative of acute coronary syndrome Pancytopenia Hyperlipidemia History of asthma Hypothyroidism Obstructive sleep apnea PLAN: Continue current cardiac medications Patient is not on anticoagulation on an outpatient basis which is reasonable considering her pancytopenia Continue telemetry monitoring Further recommendations pending patient course Nurse practitioner note has been reviewed by physician. Signing provider agrees with the documented findings, assessment, and plan of care documented by MARKETING [employer]ATE[employer] LEAD as a scribe. Objective - Vital Signs Vital signs: Vital Signs Temp 98.2 F 11/26/23 08:00 Pulse 70 11/26/23 08:00 Resp 18 11/26/23 08:00 BP 122/82 11/26/23 08:00 Pulse Ox 97 11/26/23 09:05 FiO2 Intake & Output 11/25/23 11/26/23 11/26/23 18:59 06:59 18:59 Intake Total 720 180 Output Total 200 500 Balance 520 -320 Intake: Oral 720 180 Output: Urine 200 500 Other: Voiding Method External Catheter External Catheter External Catheter - Labs CBC & Chem 7: 11/26/23 07:35 11/25/23 04:52 Labs: Abnormal Lab Results - Last 24 Hours (Table) 11/25/23 11/25/23 11/25/23 Range/Units 04:52 12:38 19:10 WBC (3.8-10.6) k/uL RBC (3.80-5.40) m/uL Hgb (11.4-16.0) gm/dL Hct (34.0-46.0) % MCV (80.0-100.0) fL Plt Count (150-450) k/uL Lymphocytes # (1.0-4.8) k/uL PT 9.7 L (10.0-12.5) sec APTT 30.9 H (22.0-30.0) sec Fibrinogen 629 H (200-500) mg/dL Plasma Lactic Acid Dejuan 3.9 H* (0.7-2.0) mmol/L TSH 0.036 L (0.465-4.680) mIU/L 11/25/23 11/26/23 Range/Units 22:43 07:35 WBC 2.4 L (3.8-10.6) k/uL RBC 3.06 L (3.80-5.40) m/uL Hgb 10.7 L (11.4-16.0) gm/dL Hct 31.1 L (34.0-46.0) % MCV 101.4 H (80.0-100.0) fL Plt Count 70 L (150-450) k/uL Lymphocytes # 0.3 L (1.0-4.8) k/uL PT (10.0-12.5) sec APTT (22.0-30.0) sec Fibrinogen (200-500) mg/dL Plasma Lactic Acid Dejuan 2.3 H* (0.7-2.0) mmol/L TSH (0.465-4.680) mIU/L
--- NOTE | 2023-11-26 17:29 | P.PN ---
Subjective Progress Note Date: 11/26/23 (delayed charting seen at 0915) Patient is a 68-year-old female with significant developmental delay, COPD, angina, hypothyroidism, and sleep apnea who initially presented to the emergency department at [facility] due to rapid heart rate. In the emergency department there she underwent a significant evaluation. She was found to be COVID- positive. Chest x-ray showed mild infiltrates. Laboratory analysis was remarkable for BNP 8920, procalcitonin 0.48, AST 95, ALT 70, alkaline phosphatase 175, lactic acid 2.3, TSH 0.16, troponin mildly elevated at 0.032. He was noted to be pancytopenic. She was started on IV antibiotics with Rocephin and Zithromax. Due to her elevated troponin and A-fib with RVR she was transferred to our facility. She was started on Decadron, droplet precautions. She was continued on p.o. Lasix. Troponin was trended. Patient seen and examined at bedside. She shakes head yes to shortness of breath, noted nausea, no lightheadedness. No to pain. Vital signs reviewed General: Nontoxic, no distress, appears at stated age Cardiovascular: S1S2 reg, no murmur Lungs: Coarse breath sounds bilateral, no rhonchi, no rales, no accessory muscle use Abdominal: Soft, nontender to palpation, no guarding Ext: No gross muscle atrophy, no edema b/l lower extremities, no contractures Neuro: CN II-XI grossly intact, no focal neuro deficits Psych: Alert, oriented to self, appropriate affect Assessment/Plan: Acute COVID-19 infection Transaminitis Lactic acidosis -Continue with as needed DuoNebs, Rocephin 2 g IV every 24 hours day #3, Zithromax 500 mg IV piggyback every 24 hours day #2 -Pulmonary note reviewed: Continue current therapy. -Decadron 6 mg IV push daily D # 3 - repeat CMP in AM -Pulmonary consultation and reviewed: Continue current plan of care. Pancytopenia, drug-induced secondary to Depakote. - Await further heme once recs -Repeat CBC in a.m. A-fib with rapid ventricular response Elevated troponin, type II non-STEMI, flat. Not consistent with coronary artery disease. - Not on anticoagulation as an outpatient which is reasonable given her pancytopenia -Cardizem 120 mg daily -Lasix 20 mg every 48 hours -Cardiology note reviewed: Continue current cardiac medications Imaging: Echocardiogram: Ejection fraction 50 to 55% Data Review: Labs reviewed from today include CBC CMP which is remarkable for white blood cell count 2.4, hemoglobin 10.7, platelets of 70. DVT prophylaxis: SCDs Anticipated discharge date: Pending Clinical Course Anticipated discharge place: Pending Clinical Course This dictation was prepared using [employer] voice recognition software. Though every attempt is made to correct errors during dictation some may still exist. Objective - Vital Signs Vital signs: Vital Signs Temp 98.2 F 11/26/23 08:00 Pulse 88 11/26/23 12:00 Resp 18 11/26/23 12:00 BP 126/79 11/26/23 12:00 Pulse Ox 97 11/26/23 12:00 FiO2 Intake & Output 11/25/23 11/26/23 11/26/23 18:59 06:59 18:59 Intake Total 720 180 480 Output Total 200 500 Balance 520 -320 480 Intake: Oral 720 180 480 Output: Urine 200 500 Other: Voiding Method External Catheter External Catheter External Catheter - Labs CBC & Chem 7: 11/26/23 07:35 11/25/23 04:52 Labs: Abnormal Lab Results - Last 24 Hours (Table) 11/25/23 11/25/23 11/26/23 Range/Units 19:10 22:43 07:35 WBC 2.4 L (3.8-10.6) k/uL RBC 3.06 L (3.80-5.40) m/uL Hgb 10.7 L (11.4-16.0) gm/dL Hct 31.1 L (34.0-46.0) % MCV 101.4 H (80.0-100.0) fL Plt Count 70 L (150-450) k/uL Lymphocytes # 0.3 L (1.0-4.8) k/uL Plasma Lactic Acid Dejuan 3.9 H* 2.3 H* (0.7-2.0) mmol/L Procalcitonin (0.02-0.09) ng/mL 11/26/23 Range/Units 11:32 WBC (3.8-10.6) k/uL RBC (3.80-5.40) m/uL Hgb (11.4-16.0) gm/dL Hct (34.0-46.0) % MCV (80.0-100.0) fL Plt Count (150-450) k/uL Lymphocytes # (1.0-4.8) k/uL Plasma Lactic Acid Dejuan (0.7-2.0) mmol/L Procalcitonin 0.19 H (0.02-0.09) ng/mL Microbiology - Last 24 Hours (Table) 11/25/23 04:52 Blood Culture - Preliminary Blood
[2023-11-27 10:05] VITALS: BP 128/65; PULSE 75; RESP 18; TEMP 98.1
--- NOTE | 2023-11-27 11:10 | P.PN ---
Subjective Progress Note Date: 11/27/23 Principal diagnosis: Atrial fibrillation. I am seeing this patient in consultation today 11/25/2023 after she was transfer [facility] for A-fib RVR and was found to be COVID-positive. Patient is a 68-year-old white female with past medical history significant for develop mental delay, atrial fibrillation, asthma, obstructive sleep apnea, hypothyroidism, hyperlipidemia, among other things. Patient does have developmental delay, and is a poor historian. She lives at [facility] home. I did review the chart from [facility]. Apparently she presented with complain ts of dizziness and vague URI-like symptoms. She was found to be in A-fib RVR, with a heart rate of 160 bpm. She was started on a Cardizem infusion. Chest x- ray at the outside facility, interpreted by me, shows central vascular congestion and interstitial infiltrates, likely interstitial edema versus pneumonia. Patient did test positive for COVID on arrival to the outside facility. Apparently several workers and residents at the [facility] home have been sick. CBC at the outside facility: WBC count 2.09, hemoglobin 10.6, hematocrit 33.4, platelets 61,000. BMP at outside facility: Sodium 139, potassium 3.6, chloride 106, serum bicarb 29, BUN 31, creatinine 1.1, glucose 111. AST 95, ALT 70, ALP 175. Lactic acid level was mildly elevated at 2.3. Troponins elevated at 0.32, 0.071, and 0.062 respectively. NT proBNP was significantly elevated 8920. Shortly after transfer to [facility], the patient's heart rhythm converted back to normal sinus rhythm. The Cardizem infusion was stopped. Admitted to the cardiac stepdown unit. Patient is currently sitting in bed, on room air, in no acute distress. She is eating Lays potato chips. SpO2 is 94%. She was previously on 1.5 L nasal cannula. She denies any significant chest pain, heart palpitations, or lightheadedness. She does report runny nose, sore throat, and nonproductive cough. She remains afebrile. She was empirically started on Rocephin and azithromycin. Procalcitonin was elevated at the outside facility at 0.48. Vital signs are stable. Progress note dated November 26, 2023. 68-year-old female transferred down from [facility], for atrial fibrillation with RVR, and testing positive for coronavirus. The patient has a history of atrial fibrillation, developmental delay, asthma, sleep apnea, hypothyroidism, and hyperlipidemia. The patient is seen today in room 365. She is on room air. Saturations are only 87 to 88%. I have asked the nurse to place the patient back on oxygen by nasal cannula at between 1 to 2 L/min. She is getting saline at KVO. Labs today include a white count 2.4, hemoglobin 10.7, hematocrit 31.1, and a platelet count of 70,000. We have ordered an N-terminal proBNP, and a procalcitonin level. Progress note dated November 27, 2023. 68-year-old female seen today in room 365. Currently she is on room air. No IV fluids. She was initially transferred from [facility], with atrial fibrillation and RVR, and she did test positive for coronavirus. She looks pretty comfortable, and is not manifesting any signs or symptoms of respiratory difficulty or distress. No new labs today other than a procalcitonin level of 0.19. Her N-terminal proBNP was elevated at 8300. Objective - Vital Signs Vital signs: Vital Signs Temp 98.1 F 11/27/23 08:00 Pulse 75 11/27/23 08:00 Resp 18 11/27/23 08:00 BP 128/65 11/27/23 08:00 Pulse Ox 97 11/27/23 08:49 FiO2 Intake & Output 11/26/23 11/27/23 11/27/23 18:59 06:59 18:59 Intake Total 480 180 Output Total 400 Balance 480 -400 180 Intake: Oral 480 180 Output: Urine 400 Other: Voiding Method External Catheter External Catheter External Catheter # Bowel Movements 2 - Exam No acute distress, oriented 3. Currently on room air. Saturations are 97 to 98 %. She does not appear to be short of breath. HEENT examination is grossly unremarkable. Mucous membranes are moist. No oral lesions. Neck supple. Full range of motion. No adenopathy thyromegaly or neck vein distention. Cardiovascular examination reveals regular rhythm rate. S1-S2 normal. No S3 or S4. No discernible murmur noted. The patient is in sinus rhythm. Heart rate 25 bpm. Lungs reveal mostly clear breath sounds. Minimal rhonchi. No wheezes or crackles. Breath sounds equal bilaterally. Saturations are excellent. Abdomen soft bowel sounds are heard. No masses or tenderness. Extremities are intact. No cyanosis clubbing or edema. Skin is without rash or lesion. Neurologic examination is brief but nonfocal. - Labs CBC & Chem 7: 11/26/23 07:35 11/25/23 04:52 Labs: Abnormal Lab Results - Last 24 Hours (Table) 11/26/23 Range/Units 11:32 Procalcitonin 0.19 H (0.02-0.09) ng/mL Microbiology - Last 24 Hours (Table) 11/25/23 04:52 Blood Culture - Preliminary Blood Assessment and Plan Assessment: Exacerbation of diastolic congestive heart failure. Atrial fibrillation with rapid ventricular rate, converted to normal sinus. Acute COVID 19 infection, doubt coronavirus associated pneumonia. Acute hypoxemic respiratory failure. Elevated troponins, likely related to supply/demand mismatch. Pancytopenia. Mild intermittent asthma, stable. Obstructive sleep apnea. Hypothyroidism. History of hyperlipidemia. Developmental delay. Plan: Plan dated November 26, 2023. The patient is now in normal sinus rhythm. The patient is on 1 and half liters of oxygen, with saturations of 97%. The patient appears not to be short of breath, even on room air, with saturations in the high 80s. The patient is getting saline at KVO. We will check an N-terminal proBNP, and a procalcitonin level. The patient continues on azithromycin, and Rocephin. The patient is also on Decadron, 6 mg a day. We will continue to follow make recommendations along the way. We may modify things, once we see the N-terminal proBNP level, and procalcitonin level. Again, the patient looks very stable. Plan dated November 27, 2023. The patient is currently in normal sinus rhythm. Her room air saturation is 9 7%. She appears in no distress. Labs, x-rays, and medications are reviewed. The patient continues on Decadron. She also continues on Zithromax, and Rocephin, for possible community-acquired pneumonia. No additional recommendations are made. We will continue to follow make recommendations along the way. Prognosis is guarded. N-terminal proBNP was elevated. Procalcitonin level was also elevated. Time with Patient: Less than 30
[2023-11-27 11:40] LABS: HCT 37.3 % (34.0-46.0); HGB 12.1 gm/dL (11.4-16.0); MCH 34.1 pg (25.0-35.0); MCHC 32.4 g/dL (31.0-37.0); MCV 105.3 fL (80.0-100.0); Macrocytosis Slight; Mean Platelet Volume 9.8; RBC 3.54 m/uL (3.80-5.40); RDW 12.3 % (11.5-15.5); WBC 1.6 k/uL (3.8-10.6)
--- NOTE | 2023-11-27 11:41 | P.DS ---
Providers Date of admission: 11/24/23 22:03 Expected date of discharge: 11/27/23 Attending physician: Lul Hightower MD Consults: 11/24/23 22:01 Consult Physician Urgent Consulting Provider: [facility] Consult Reason/Comments: afib with rvr, elevated trop Do you want consulting provider notified?: Yes 11/25/23 01:34 Consult Physician Routine Consulting Provider: Pierre Scherer Consult Reason/Comments: pancytopenia Do you want consulting provider notified?: Yes, Notify in am 11/25/23 01:36 Consult Physician Routine Consulting Provider: Karen Egan Consult Reason/Comments: covid , pneumonia Do you want consulting provider notified?: Yes Primary care physician: Wallace Ang Hospital Course: Discharge Diagnosis: Acute COVID-19 infection Transaminitis- chronic and unchanged Lactic acidosis Pancytopenia, drug-induced secondary to Depakote. A-fib with rapid ventricular response Elevated troponin, type II non-STEMI, flat. Not consistent with coronary artery disease. Hospital Course: Patient is a 68-year-old female with significant developmental delay, COPD, angina, hypothyroidism, and sleep apnea who initially presented to the emergency department at [place] due to rapid heart rate. In the emergency department there she underwent a significant evaluation. She was found to be COVID- positive. Chest x-ray showed mild infiltrates. Laboratory analysis was remarkable for BNP 8920, procalcitonin 0.48, AST 95, ALT 70, alkaline phosphatase 175, lactic acid 2.3, TSH 0.16, troponin mildly elevated at 0.032. He was noted to be pancytopenic. She was started on IV antibiotics with Rocephin and Zithromax. Due to her elevated troponin and A-fib with RVR she was transferred to our facility. She was started on Decadron, droplet precautions. She was continued on p.o. Lasix. Troponin was trended and remained flat and not consistent with acute ischemic event. BNP was mildly elevated at 8300. She underwent echocardiogram which showed a preserved ejection fraction of 50 to 55%. She was resumed on her home Lasix dosing. Her A-fib with RVR resolved. She was seen by cardiology who felt she should not be on anticoagulation due to her pancytopenia. She was seen by hematology and oncology who stated the pancytopenia is known and likely drug-induced from Depakote. Her blood counts all improved. She was able to come off of oxygen. She was determined stable for discharge home. As she was no longer requiring oxygen she was able to come off of steroids. Follow-up instructions: Lasix 20 mg daily for the next 5 days then resume every other day dosing. Follow wtih Dr. Ornelas in [address] Scherer in 2 weeks Patient seen and examined at bedside. She shakes head yes and no appropriately. She denies shortness of breath, chest discomfort, lightheadedness, dizziness Vital signs reviewed and stable. General: Nontoxic, no distress, appears at stated age Cardiovascular: S1S2 reg, no murmur, positive posterior tibial pulse bilateral, Lungs: CTA bilateral, no rhonchi, no rales, no accessory muscle use Abdominal: Soft, nontender to palpation, no guarding, no appreciable o rganomegaly Ext: no edema b/l lower extremities Psych: Alert, blunted affect, shaking head but not verbalizing today A total of 35 minutes of time were spent preparing this complex discharge summary. Patient was discharged on 11/27/23 This dictation was prepared using [employer] voice recognition software. Though every attempt is made to correct errors during dictation some may still exist. Patient Condition at Discharge: Stable Plan - Discharge Summary New Discharge Prescriptions: Continue Sertraline [Zoloft] 200 mg PO DAILY@0800 Potassium Chloride [K-Tab ER] 10 meq PO Q48H Ipratropium-Albuterol Nebulize [Duoneb 0.5 mg-3 mg/3 ml Soln] 3 ml INHALATION RT-QID PRN PRN Reason: Shortness Of Breath Acetaminophen [Tylenol Extra Strength] 500 - 1,000 mg PO Q6H PRN PRN Reason: Pain Ascorbic Acid [Vitamin C] 1,000 mg PO DAILY PRN PRN Reason: SUPPLEMENT Sodium Bicarbonate Tab 650 mg PO TID@0800,1700,2000 Meclizine [Antivert] 12.5 - 25 mg PO BID PRN PRN Reason: DIZZINESS Lidocaine 4% Patch 1 patch TOPICAL DAILY PRN PRN Reason: Pain Levothyroxine Sodium [Synthroid] 88 mcg PO DAILY@0800 Latanoprost [Latanoprost 0.005%] 1 drop BOTH EYES HS@2000 Lactulose 20 gm PO DAILY@0800 Aspirin 81 mg PO DAILY@0800 Brimonidine Tartrate [Alphagan P 0.2% Ophth Soln] 1 drops RIGHT EYE BID Cholecalciferol (Vitamin D3) [Vitamin D3 (50 Mcg = 2000 Iu)] 50 mcg PO DAILY@0800 Albuterol Sulfate [Ventolin HFA] 2 puff INHALATION RT-Q4H PRN PRN Reason: Shortness Of Breath Rosuvastatin Calcium 5 mg PO HS@2000 miSOPROStoL 100 mcg PO BID@0800,1700 Naproxen [Naprosyn] 500 mg PO BID@0800,1999 clonazePAM [KlonoPIN] 0.25 mg PO DAILY@0800 Furosemide [Lasix] 20 mg PO Q48H Divalproex Sprinkle [Depakote Sprinkle] 375 mg PO TID@0800,1700,1999 dilTIAZem HCL [Cartia Xt] 120 mg PO DAILY@0800 Benadryl [place] 2-0.1% 1 applic TOPICAL QID PRN PRN Reason: Itching Discharge Medication List Acetaminophen [Tylenol Extra Strength] 500 - 1,000 mg PO Q6H PRN 10/15/18 [History] Ipratropium-Albuterol Nebulize [Duoneb 0.5 mg-3 mg/3 ml Soln] 3 ml INHALATION RT-QID PRN 10/15/18 [History] Potassium Chloride [K-Tab ER] 10 meq PO Q48H 10/15/18 [History] Sertraline [Zoloft] 200 mg PO DAILY@0800 10/15/18 [History] Albuterol Sulfate [Ventolin HFA] 2 puff INHALATION RT-Q4H PRN 11/24/23 [History] Ascorbic Acid [Vitamin C] 1,000 mg PO DAILY PRN 11/24/23 [History] Aspirin 81 mg PO DAILY@0800 11/24/23 [History] Benadryl [place] 2-0.1% 1 applic TOPICAL QID PRN 11/24/23 [History] Brimonidine Tartrate [Alphagan P 0.2% Ophth Soln] 1 drops RIGHT EYE BID 11/24/23 [History] Cholecalciferol (Vitamin D3) [Vitamin D3 (50 Mcg = 2000 Iu)] 50 mcg PO DAILY@0800 11/24/23 [History] Divalproex Sprinkle [Depakote Sprinkle] 375 mg PO TID@0800,170,199911/24/23 [History] Furosemide [Lasix] 20 mg PO Q48H 11/24/23 [History] Lactulose 20 gm PO DAILY@0811/24/23 [History] Latanoprost [Latanoprost 0.005%] 1 drop BOTH EYES HS@199911/24/23 [History] Levothyroxine Sodium [Synthroid] 88 mcg PO DAILY@0811/24/23 [History] Lidocaine 4% Patch 1 patch TOPICAL DAILY PRN 11/24/23 [History] Meclizine [Antivert] 12.5 - 25 mg PO BID PRN 11/24/23 [History] Naproxen [Naprosyn] 500 mg PO BID@08,199911/24/23 [History] Rosuvastatin Calcium 5 mg PO HS@199911/24/23 [History] Sodium Bicarbonate Tab 650 mg PO TID@0800,170,199911/24/23 [History] clonazePAM [KlonoPIN] 0.25 mg PO DAILY@0811/24/23 [History] dilTIAZem HCL [Cartia Xt] 120 mg PO DAILY@0811/24/23 [History] miSOPROStoL 100 mcg PO BID@0800,1700 11/24/23 [History] Follow up Appointment(s)/Referral(s): Pierre Scherer [STAFF PHYSICIAN] - 12/27/23 1:30 pm Wallace Ang MD [Primary Care Provider] - 1-2 days Activity/Diet/Wound Care/Special Instructions: Activity: As tolerated Diet: Heart Healthy Special Instructions: Lasix 20 mg daily for the next 5 days and then resume Lasix 20 mg every other day Discharge Disposition: HOME SELF-CARE
[2023-11-27 11:55] LABS: Platelet Count 65 k/uL (150-450)
[2023-11-27 11:58] LABS: ALT 63 U/L (4-34); AST 78 U/L (14-36); African American GFR (CKD) >90 (>60 ml/min/1.73 sqM); Albumin 3.1 g/dL (3.5-5.0); Alkaline Phosphatase 144 U/L (38-126); Anion Gap 10 mmol/L; Blood Urea Nitrogen 32 mg/dL (7-17); Calcium 8.7 mg/dL (8.4-10.2); Carbon Dioxide 24 mmol/L (22-30); Chloride 106 mmol/L (98-107); Non-African American GFR(CKD) 89 (>60 ml/min/1.73 sqM); Sodium 140 mmol/L (137-145); Total Bilirubin 0.8 mg/dL (0.2-1.3); Total Protein 5.7 g/dL (6.3-8.2)
[2023-11-27 12:07] LABS: Glucose 43 mg/dL (74-99); Potassium 5.4 mmol/L (3.5-5.1)
--- NOTE | 2023-11-27 13:41 | P.PN ---
Subjective Progress Note Date: 11/27/23 The patient is a 68-year-old female who is currently admitted to the hospital for A-fib with RVR. During her admission she was found to be COVID-19 positive. The patient converted back to sinus mechanism and has remained over the last 72 hours. Patient interviewed resting comfortably in bed. She denies any current chest pain or difficulty breathing. GENERAL: Well-appearing, well-nourished and in no acute distress. NECK: Supple without JVD or thyromegaly. LUNGS: Breath sounds clear to auscultation bilaterally. Respiration equal and unlabored. No wheezes, rales or rhonchi. HEART: Regular rate and rhythm without murmurs, rubs or gallops. S1 and S2 heard. EXTREMITIES: Normal range of motion, no edema. No clubbing or cyanosis. Peripheral pulses intact and strong. TELEMETRY: Sinus mechanism overnight LABS: WBC 1.6, hemoglobin 12.1, hematocrit 37.3, platelet 65, sodium 140, potassium 5.4, BUN 32, creatinine 0.70, AST 78, ALT 63, ALP 144, BNP 8300 IMPRESSION: Acute COVID-19 infection Paroxysmal atrial fibrillation with RVR Elevated troponin, flat trend, not indicative of acute coronary syndrome Valvular heart disease Hyperlipidemia Hypothyroidism Obstructive sleep apnea History of pancytopenia PLAN: Continue current medication regimen No further recommendations from the cardiac standpoint I am dictating on behalf of Dr Esa Herzog's history/physical and assessment/plan. Objective - Vital Signs Vital signs: Vital Signs Temp 98.1 F 11/27/23 08:00 Pulse 75 11/27/23 08:00 Resp 18 11/27/23 08:00 BP 128/65 11/27/23 08:00 Pulse Ox 97 11/27/23 08:49 FiO2 Intake & Output 11/26/23 11/27/23 11/27/23 18:59 06:59 18:59 Intake Total 480 360 Output Total 400 Balance 480 -400 360 Intake: Oral 480 360 Output: Urine 400 Other: Voiding Method External Catheter External Catheter External Catheter # Bowel Movements 2 - Labs CBC & Chem 7: 11/27/23 09:11 11/27/23 09:11 Labs: Abnormal Lab Results - Last 24 Hours (Table) 11/26/23 11/27/23 11/27/23 Range/Units 11:32 09:11 09:11 WBC 1.6 L (3.8-10.6) k/uL RBC 3.54 L (3.80-5.40) m/uL MCV 105.3 H (80.0-100.0) fL Plt Count 65 L (150-450) k/uL Potassium 5.4 H (3.5-5.1) mmol/L BUN 32 H (7-17) mg/dL Glucose 43 L* (74-99) mg/dL AST 78 H (14-36) U/L ALT 63 H (4-34) U/L Alkaline Phosphatase 144 H (38-126) U/L Total Protein 5.7 L (6.3-8.2) g/dL Albumin 3.1 L (3.5-5.0) g/dL Procalcitonin 0.19 H (0.02-0.09) ng/mL Microbiology - Last 24 Hours (Table) 11/25/23 04:52 Blood Culture - Preliminary Blood
[2023-11-30 18:48] LABS: Hepatitis A Antibody IgM Nonreactive; Hepatitis B Core IgM Nonreactive; Hepatitis B Surface Antigen Nonreactive; Hepatitis C IgG Antibody Nonreactive
== END 2023-11-27 18:19 | disposition home or self-care (01) | DRG 177 ==
LOC: EC 19:36 → 3SCARD 22:03
PROVIDERS: ADMIT Internal Medicine; ATTEND Internal Medicine
PROC: 8E0ZXY6 Isolation (ICD-10-PCS; principal; 2023-11-24)
DX: U07.1 COVID-19 (principal); D61.811 Other drug-induced pancytopenia; I21.A1 Myocardial infarction type 2; J96.01 Acute respiratory failure with hypoxia; I50.33 Acute on chronic diastolic (congestive) heart failure; E87.20 Acidosis, unspecified; R56.9 Unspecified convulsions; J45.20 Mild intermittent asthma, uncomplicated; M19.90 Unspecified osteoarthritis, unspecified site; F70 Mild intellectual disabilities; J44.9 Chronic obstructive pulmonary disease, unspecified; T42.6X5A Adverse effect of other antiepileptic and sedative-hypnotic drugs, initial encounter; I48.0 Paroxysmal atrial fibrillation; E78.5 Hyperlipidemia, unspecified; E03.9 Hypothyroidism, unspecified; G47.33 Obstructive sleep apnea (adult) (pediatric); R74.01 Elevation of levels of liver transaminase levels; Z79.899 Other long term (current) drug therapy; Z79.890 Hormone replacement therapy; Z79.82 Long term (current) use of aspirin
CPT/HCPCS: 36415; 71045; 80048; 80053; 80074; 83605; 83880; 84145; 84439; 84443; 84484; 85025; 85027; 85384; 85610; 85730; 86038; 87040; 93005; 93306; 94640; 94760; 99285

== ENCOUNTER 2024-03-04 17:59 | Observation (INO) | payer MEDICARE, OTHER ==
--- NOTE | 2024-03-04 18:25 | ED ---
General Adult HPI - General Stated complaint: increased heart rate Time Seen by Provider: 03/04/24 18:10 Source: patient, RN/MD, EMS, RN notes reviewed, old records reviewed Mode of arrival: EMS Limitations: no limitations - History of Present Illness Initial comments: Patient is a 68-year-old female present to the emergency department as a transfer from [facility]. Patient was there for A-fib with RVR started on Cardizem drip. Patient also had 2 episodes of SVT treated with adenosine. Patient at this time is symptom-free and does not provide any further complaint s. Patient does have history of previous A-fib. Patient does have history of cerebral palsy I - Related Data Home Medications Medication Instructions Recorded Confirmed Acetaminophen [Tylenol Extra 500 - 1,000 mg PO Q6H PRN 10/15/18 11/24/23 Strength] Ipratropium-Albuterol Nebulize 3 ml INHALATION RT-QID PRN 10/15/18 11/24/23 [Duoneb 0.5 mg-3 mg/3 ml Soln] Potassium Chloride [K-Tab ER] 10 meq PO Q48H 10/15/18 11/24/23 Sertraline [Zoloft] 200 mg PO DAILY@0800 10/15/18 11/24/23 Albuterol Sulfate [Ventolin HFA] 2 puff INHALATION RT-Q4H PRN 11/24/23 11/24/23 Ascorbic Acid [Vitamin C] 1,000 mg PO DAILY PRN 11/24/23 11/24/23 Aspirin 81 mg PO DAILY@0800 11/24/23 11/24/23 Benadryl [place] 2-0.1% 1 applic TOPICAL QID PRN 11/24/23 11/24/23 Brimonidine Tartrate [Alphagan P 1 drops RIGHT EYE BID 11/24/23 11/24/23 0.2% Ophth Soln] Cholecalciferol (Vitamin D3) 50 mcg PO DAILY@0800 11/24/23 11/24/23 [Vitamin D3 (50 Mcg = 2000 Iu)] Divalproex Sprinkle [Depakote 375 mg PO TID@0800,1700,2000 11/24/23 11/24/23 Sprinkle] Furosemide [Lasix] 20 mg PO Q48H 11/24/23 11/24/23 Lactulose 20 gm PO DAILY@0800 11/24/23 11/24/23 Latanoprost [Latanoprost 0.005%] 1 drop BOTH EYES HS@199911/24/23 11/24/23 Levothyroxine Sodium [Synthroid] 88 mcg PO DAILY@0800 11/24/23 11/24/23 Lidocaine 4% Patch 1 patch TOPICAL DAILY PRN 11/24/23 11/24/23 Meclizine [Antivert] 12.5 - 25 mg PO BID PRN 11/24/23 11/24/23 Naproxen [Naprosyn] 500 mg PO BID@0800,199911/24/23 11/24/23 Rosuvastatin Calcium 5 mg PO HS@199911/24/23 11/24/23 Sodium Bicarbonate Tab 650 mg PO TID@0800,1700,199911/24/23 11/24/23 clonazePAM [KlonoPIN] 0.25 mg PO DAILY@0800 11/24/23 11/24/23 dilTIAZem HCL [Cartia Xt] 120 mg PO DAILY@0800 11/24/23 11/24/23 miSOPROStoL 100 mcg PO BID@0800,1700 11/24/23 11/24/23 Allergies Allergy/AdvReac Type Severity Reaction Status Date / Time No Known Allergies Allergy Verified 11/24/23 21:07 Review of Systems ROS Statement: Those systems with pertinent positive or pertinent negative responses have been documented in the HPI. ROS Other: All systems not noted in ROS Statement are negative. Constitutional: Denies: fever Eyes: Denies: eye pain ENT: Denies: ear pain Cardiovascular: Reports: as per HPI. Denies: chest pain Musculoskeletal: Denies: back pain Past Medical History Past Medical History: Atrial Fibrillation, Asthma, Chest Pain / Angina, COPD, Osteoarthritis (OA), Thyroid Disorder Additional Past Medical History / Comment(s): mild mental retardation, glucoma,sleep apnea History of Any Multi-Drug Resistant Organisms: Unobtainable Past Surgical History: No Surgical Hx Reported Past Anesthesia/Blood Transfusion Reactions: Previous Problems w/ Anesthesia Past Psychological History: Unable to Obtain Past Alcohol Use History: None Reported, Unable to Obtain Past Drug Use History: None Reported - Past Family History Mother History Unknown: Yes General Exam Limitations: no limitations General appearance: alert, in no apparent distress Head exam: Present: atraumatic Eye exam: Present: normal appearance Neck exam: Present: normal inspection Respiratory exam: Present: normal lung sounds bilaterally Cardiovascular Exam: Present: irregular rhythm GI/Abdominal exam: Present: soft. Absent: tenderness Extremities exam: Present: pedal edema (+1 bilateral). Absent: calf tenderness Neurological exam: Present: alert Psychiatric exam: Present: normal affect, normal mood Skin exam: Present: normal color Course Vital Signs 03/04/24 18:13 Temperature 98 F Pulse Rate 85 Respiratory 18 Rate Blood Pressure 125/84 O2 Sat by Pulse 100 Oximetry EKG Findings - EKG Results: EKG: interpreted by ERMD (Rate of 84. Left axis.), normal QRS, normal ST/T EKG shows: atrial fibrillation Medical Decision Making - Medical Decision Making Was pt. sent in by a medical professional or institution (, PA, GRANULATOR, urgent care, hospital, or correction...) When possible be specific @ -Patient was sent from [facility] Did you speak to anyone other than the patient for history (EMS, parent, family, police, friend...)? What history was obtained from this source @ -I did speak with transferring physician Dr. Hamilton Banegas Did you review nursing and triage notes (agree or disagree)? Why? @ -I reviewed and agree with nursing and triage notes Were old charts reviewed (outside hosp., previous admission, EMS record, old EKG, old radiological studies, urgent care reports/EKG's, correction records)? Report findings @ -I did review notes from [facility] including medications given Differential Diagnosis (chest pain, altered mental status, abdominal pain women, abdominal pain men, vaginal bleeding, weakness, fever, dyspnea, syncope, headache, dizziness, GI bleed, back pain, seizure, CVA, palpatations, mental health, musculoskeletal)? @ -Differential Palpitations Ventricular arrhythmias, atrial arrhythmias, myocardial infarction, anemia, thyrotoxicosis, electrolyte imbalance, hypokalemia, pulmonary embolism, pulmonary disease, drugs, alcohol, anxiety, stress.... This is not meant to be an all-inclusive list. EKG interpreted by me (3pts min.). @ -As above X-rays interpreted by me (1pt min.). @ -None done CT interpreted by me (1pt min.). @ -None done U/S interpreted by me (1pt. min.). @ -None done What testing was considered but not performed or refused? (CT, X-rays, U/S, labs)? Why? @ -None What meds were considered but not given or refused? Why? @ -None Did you discuss the management of the patient with other professionals (professionals i.e. DrGeno, PA, GRANULATOR, lab, RT, psych nurse, social work instructor, installation supervisor, teacher, field crop technical officer, leather case finisher)? Give summary @ -Case discussed with Dr. Chao who will admit covering Dr. Sampson who admits for Dr. Su Was smoking cessation discussed for >3mins.? @ -No Was critical care preformed (if so, how long)? @ -31 minutes critical care time Were there social determinants of health that impacted care today? How? (Homelessness, low income, unemployed, alcoholism, drug addiction, transportation, low edu. Level, literacy, decrease access to med. care, correction, rehab)? @ -No Was there de-escalation of care discussed even if they declined (Discuss DNR or withdrawal of care, Hospice)? DNR status @ -No What co-morbidities impacted this encounter? (DM, HTN, Smoking, COPD, CAD, Cancer, CVA, ARF, Chemo, Hep., AIDS, mental health diagnosis, sleep apnea, morbid obesity)? @ -None Was patient admitted / discharged? Hospital course, mention meds given and route, prescriptions, significant lab abnormalities, going to OR and other pertinent info. @ -Patient updated. Patient will be admitted with cardiac consult. Admission orders placed. Patient previously was not heparinized secondary to pancytopenia from Depakote. Patient labs improved at this time. Hemoglobin 12. Platelets 126. After discussion with Dr. Chao decision is made to start heparin. Undiagnosed new problem with uncertain prognosis? @ -No Drug Therapy requiring intensive monitoring for toxicity (Heparin, Nitro, Insulin, Cardizem)? @ -Patient is on Cardizem drip. Heparin drip will be added Were any procedures done? @ -No Diagnosis/symptom? @ -A-fib with RVR Acute, or Chronic, or Acute on Chronic? @ -Acute Uncomplicated (without systemic symptoms) or Complicated (systemic symptoms)? @ -Default Side effects of treatment? @ -No Exacerbation, Progression, or Severe Exacerbation? @ -No Poses a threat to life or bodily function? How? (Chest pain, [place], [place], pneumonia, PE, COPD, DKA, ARF, appy, cholecystitis, CVA, Diverticulitis, Homicidal, Suicidal, threat to staff... and all critical care pts) @ -No Critical Care Time Critical Care Time: Yes Disposition Clinical Impression: Atrial fibrillation Disposition: ADMITTED IP TO THIS HOSP Is patient prescribed a controlled substance at d/c from ED?: No Referrals: Wallace Ang MD [Primary Care Provider] - 1-2 days Time of Disposition: 18:42
[2024-03-04] MEDS ORDERED: HEPARIN SODIUM 1,000 UN/ML (10ML VL) IV PRN (18:40)
[2024-03-04] MEDS ORDERED: NALOXONE 0.4 MG/ML 1 ML VIAL IV PRN (18:40)
[2024-03-04] MEDS: DILTIAZEM 125 MG in SODIUM CHLORIDE 0.9% 100 ML IV SCH (18:41)
[2024-03-04] MEDS: IPRATROPIUM-ALBUTEROL 3 ML NEB INHALATION PRN (19:37)
[2024-03-04] MEDS: ATORVASTATIN 10 MG TAB PO SCH (20:48)
[2024-03-04] MEDS: NAPROXEN 250 MG TAB PO SCH (20:48)
[2024-03-04] MEDS: SODIUM BICARBONATE TAB 650 MG TAB PO SCH (20:49)
[2024-03-04] MEDS: HEPARIN SOD,PORK IN 0.45% NACL 25,000 UNIT in 0.45% NACL 1 250ML.BAG IV SCH (20:51)
[2024-03-04] MEDS: HEPARIN SODIUM 1,000 UN/ML (10ML VL) IV ONE (20:53)
[2024-03-04] MEDS: BRIMONIDINE TARTRATE 0.2% DROPS 5 ML BTL RIGHT EYE SCH (22:11)
[2024-03-04] MEDS: LATANOPROST 0.005% OPHTH DROPS 2.5 ML BTL BOTH EYES SCH (22:11)
--- NOTE | 2024-03-05 03:27 | P.HPIM ---
History of Present Illness H&P Date: 03/04/24 Patient is a 68-year-old female with a PMH of mental disability, resident of [facility] home, COPD, hypothyroidism, and sleep apnea who had initially presented to [facility] for complaints of chest discomfort and palpitations. Patient was initially noted to be in SVT and was given adenosine after which the underlying rhythm was noted to be A-fib. The patient was subsequently transferred to [facility]. Patient reported feeling essentially at her baseline at the time of interview. She denied experiencing any complaints. Denied experiencing any further chest discomfort, shortness breath, fever, chills, cough, nausea, vomiting, abdominal pain, diarrhea. The patient does have severe mental disability and history was thereby limited. She does report however that she has been experiencing intermittent chest discomfort throughout the day today prior to her presentation. The patient underwent an extensive evaluation within the hospital which was all reviewed including a chest x-ray that was unremarkable with initial EKG showing A-fib at 120 bpm, subsequently showing SVT at 195 bpm. Patient was then given adenosine with resulting EKG showing A-fib at a rate of 63 bpm. EKG at our facility also revealed A-fib at 84 bpm. Laboratory evaluation was reviewed with WBC count 7.5, hemoglobin 12.8, platelet count 126, sodium 142, potassium 3.7, chloride 108, CO2 24, glucose 154, BUN 27, creatinine 1.09, AST 195, ALT 265, with an unremarkable UA, with influenza, COVID, and RSV negative. ED documentation reviewed and case discussed with ED provider. Review of systems: Pertinent positives and negatives as discussed in HPI, a complete review of systems was performed and all other systems are negative. Physical examination: Vital signs reviewed General: non toxic, no distress, appears at stated age, normal weight Derm: no unusual rashes/lesions, warm Head: atraumatic, normocephalic, symmetric Eyes: EOMI, no lid lag, anicteric sclera, pupils equal round reactive to light ENT: Nose and ears atraumatic Neck: No cervical lymphadenopathy, trachea midline, supple Mouth: no lip lesion, mucus membranes moist Cardiovascular: S1S2 reg, no murmur, positive dorsalis pedis pulse bilateral, no edema Lungs: CTA bilateral, no rhonchi, no rales, no accessory muscle use Abdominal: soft, nontender to palpation, no guarding Ext: muscle strength 5 out of 5 in all 4 extremities grossly, no gross muscle atrophy, no contractures, Neuro: CN II-XI grossly intact, no gross focal neuro deficits Psych: Oriented only to self, not answering all questions appropriately Assessment: A-fib with SVT Chronic conditions: Mental disability, COPD, hypothyroidism Imaging: The patient underwent an extensive evaluation within the hospital which was all reviewed including a chest x-ray that was unremarkable with initial EKG showing A-fib at 120 bpm, subsequently showing SVT at 195 bpm. Patient was then given adenosine with resulting EKG showing A-fib at a rate of 63 bpm. Data Review: Laboratory evaluation was reviewed with WBC count 7.5, hemoglobin 12.8, platelet count 126, sodium 142, potassium 3.7, chloride 108, CO2 24, glucose 154, BUN 27, creatinine 1.09, AST 195, ALT 265, with an unremarkable UA, with influenza, COVID, and RSV negative. Plan: Continue with Cardizem and heparin infusions Obtain echocardiogram Cardiology consulted Cardiac monitoring Resume home medications once reconciled DVT prophylaxis: Heparin infusion The patient is admitted with an anticipated less than 2 midnight stay for evaluation of A-fib CODE STATUS: Full Code Discussed with: Patient Anticipated discharge place: [facility] Past Medical History Past Medical History: Atrial Fibrillation, Asthma, Chest Pain / Angina, COPD, Osteoarthritis (OA), Thyroid Disorder Additional Past Medical History / Comment(s): mild mental retardation, glucoma,sleep apnea History of Any Multi-Drug Resistant Organisms: Unobtainable Past Surgical History: No Surgical Hx Reported Past Anesthesia/Blood Transfusion Reactions: Previous Problems w/ Anesthesia Past Psychological History: Unable to Obtain Past Alcohol Use History: None Reported, Unable to Obtain Past Drug Use History: None Reported - Past Family History Mother History Unknown: Yes Medications and Allergies Home Medications Medication Instructions Recorded Confirmed Type Acetaminophen [Tylenol Extra 500 - 1,000 mg PO Q6H PRN 10/15/18 03/04/24 History Strength] Ipratropium-Albuterol Nebulize 3 ml INHALATION RT-QID PRN 10/15/18 03/04/24 History [Duoneb 0.5 mg-3 mg/3 ml Soln] Potassium Chloride [K-Tab ER] 10 meq PO Q48H 10/15/18 03/04/24 History Sertraline [Zoloft] 200 mg PO DAILY@0800 01/12/19 06/01/24 History Ascorbic Acid [Vitamin C] 1,000 mg PO DAILY PRN 11/24/23 03/04/24 History Aspirin 81 mg PO DAILY@0800 11/24/23 03/04/24 History Brimonidine Tartrate [Alphagan P 1 drops RIGHT EYE BID@0800,1900 11/24/23 03/04/24 History 0.2% Ophth Soln] Cholecalciferol (Vitamin D3) 50 mcg PO DAILY@0800 11/24/23 03/04/24 History [Vitamin D3 (50 Mcg = 2000 Iu)] Furosemide [Lasix] 20 mg PO Q48H 11/24/23 03/04/24 History Lactulose 20 gm PO DAILY@0800 11/24/23 03/04/24 History Latanoprost [Latanoprost 0.005%] 1 drop BOTH EYES HS@1900 11/24/23 03/04/24 History Levothyroxine Sodium [Synthroid] 88 mcg PO DAILY@0800 11/24/23 03/04/24 History Lidocaine 4% Patch 1 patch TOPICAL DAILY PRN 11/24/23 03/04/24 History Meclizine [Antivert] 12.5 - 25 mg PO BID PRN 11/24/23 03/04/24 History Naproxen [Naprosyn] 500 mg PO BID@0800,1900 11/24/23 03/04/24 History Rosuvastatin Calcium 5 mg PO HS@189911/24/23 03/04/24 History Sodium Bicarbonate Tab 650 mg PO TID@0800,1600,19011/24/23 03/04/24 History clonazePAM [KlonoPIN] 0.25 mg PO DAILY@0800 11/24/23 03/04/24 History dilTIAZem HCL [Cartia Xt] 120 mg PO DAILY@0800 11/24/23 03/04/24 History miSOPROStoL 100 mcg PO BID@0800,1600 11/24/23 03/04/24 History Allergies Allergy/AdvReac Type Severity Reaction Status Date / Time No Known Allergies Allergy Verified 11/24/23 21:07 Physical Exam Vitals: Vital Signs Temp Pulse Resp BP Pulse Ox 03/04/24 19:44 75 03/04/24 19:39 74 03/04/24 18:13 98 F 85 18 125/84 100 Intake and Output 03/04/24 03/04/24 03/04/24 06:59 14:59 22:59 Other: Weight 45.359 kg
[2024-03-05 03:52] LABS: Basophils % (A) 1 %; Eosinophils # (A) 0.1 k/uL (0-0.7); Eosinophils % (A) 2 %; HCT 35.1 % (34.0-46.0); HGB 11.5 gm/dL (11.4-16.0); Lymphocytes # (A) 0.7 k/uL (1.0-4.8); Lymphocytes % (A) 20 %; MCHC 32.8 g/dL (31.0-37.0); MCV 103.7 fL (80.0-100.0); Macrocytosis Slight; Mean Platelet Volume 8.9; Monocytes # (A) 0.2 k/uL (0-1.0); Monocytes % (A) 4 %; Neutrophils # (A) 2.6 k/uL (1.3-7.7); Neutrophils % (A) 72 %; Platelet Count 118 k/uL (150-450); RBC 3.39 m/uL (3.80-5.40); RDW 13.3 % (11.5-15.5); WBC 3.7 k/uL (3.8-10.6)
[2024-03-05 04:47] LABS: Prothrombin Time 10.6 sec (10.0-12.5)
[2024-03-05] MEDS: clonazePAM 0.5 MG TAB PO SCH (08:56)
[2024-03-05] MEDS: CHOLECALCIFEROL 25 MCG (1000 IU) TABLET PO SCH (08:56)
[2024-03-05] MEDS: ASPIRIN 81 MG PO SCH (08:56)
[2024-03-05] MEDS: LEVOTHYROXINE 88 MCG TAB PO SCH (08:57)
[2024-03-05] MEDS: LACTULOSE 20 GM/30 ML CUP PO SCH (08:57)
[2024-03-05] MEDS: DILTIAZEM CD 120 MG CAP.ER.24H PO SCH (08:57)
[2024-03-05] MEDS: SERTRALINE 100 MG TAB PO SCH (08:58)
[2024-03-05] MEDS: ASCORBIC ACID 500 MG TAB PO SCH (08:58)
[2024-03-05] MEDS: FUROSEMIDE 20 MG TAB PO SCH (08:58)
[2024-03-05] MEDS: PANTOPRAZOLE 40 MG/10 ML VIAL IV SCH (08:59)
[2024-03-05] MEDS: POTASSIUM CHLORIDE ER 10 MEQ TAB.ER.PRT PO SCH (08:59)
[2024-03-05] MEDS: miSOPROStoL 100 MCG TAB PO SCH (09:12)
--- NOTE | 2024-03-05 12:28 | P.PN ---
Subjective Progress Note Date: 03/05/24 No new complaints today. HRs are back in normal range in sinus rhythm. Gen: In NAD, non-toxic HEENT: normocephalic, atraumatic, hearing acuity is intant, mucous membranes moist CVS: perfusing all extremities well, no pitting edema, Respiratory: symmetric chest expansion, no accessory muscle use, GI: soft, NTTP, ND, : no suprapubic tenderness, no CVA tenderness MSK/Derm: no rashes, cyanosis Neuro: CN II-XII intact, no motor weakness, Psych: cooperative, euthymic mood, judgment and insight is intact Hospital Course: Patient is a 68-year-old female with a PMH of mental disability, resident of [facility], COPD, hypothyroidism, and sleep apnea who had initially presented to [facility] for complaints of chest discomfort and palpitations. Patient was initially noted to be in SVT and was given adenosine after which the underlying rhythm was noted to be A-fib. The patient was subsequently transferred to [facility]. The patient underwent an extensive evaluation within the hospital which was all reviewed including a chest x-ray that was unremarkable with initial EKG showing A-fib at 120 bpm, subsequently showing SVT at 195 bpm. Patient was then given adenosine with resulting EKG showing A-fib at a rate of 63 bpm. EKG at our facility also revealed A-fib at 84 bpm. Laboratory evaluation was reviewed with WBC count 7.5, hemoglobin 12.8, platelet count 126, sodium 142, potassium 3.7, chloride 108, CO2 24, glucose 154, BUN 27, creatinine 1.09, AST 195, ALT 265, with an unremarkable UA, with influenza, COVID, and RSV negative. Assessment: Paroxysmal A-fib with RVR Chronic conditions: Mental disability, COPD, hypothyroidism Plan: Continue with Cardizem and heparin infusions Obtain echocardiogram Cardiology consulted Cardiac monitoring Resume home medications once reconciled DVT prophylaxis: Heparin infusion The patient is admitted with an anticipated less than 2 midnight stay for evaluation of A-fib CODE STATUS: Full Code Discussed with: Patient Anticipated discharge place: [facility] Objective - Vital Signs Vital signs: Vital Signs Temp 98 F 03/04/24 18:13 Pulse 69 03/05/24 11:55 Resp 16 03/05/24 11:55 BP 101/58 03/05/24 11:55 Pulse Ox 98 06/02/24 09:31 FiO2 Intake & Output 03/04/24 03/05/24 03/05/24 18:59 06:59 18:59 Weight 45.359 kg - Labs CBC & Chem 7: 03/05/24 03:36 Labs: Abnormal Lab Results - Last 24 Hours (Table) 03/05/24 03/05/24 03/05/24 Range/Units 00:50 03:36 03:36 WBC 3.7 L (3.8-10.6) k/uL RBC 3.39 L (3.80-5.40) m/uL MCV 103.7 H (80.0-100.0) fL Plt Count 118 L (150-450) k/uL Lymphocytes # 0.7 L (1.0-4.8) k/uL APTT 57.0 H (22.0-30.0) sec Troponin I 0.035 H* (0.000-0.034) ng/mL
--- NOTE | 2024-03-05 13:20 | P.CRDCN ---
History of Present Illness Consult date: 03/05/24 Consult reason: atrial fibrillation History of present illness: The patient is a 68-year-old female with past medical history of developmental delay, atrial fibrillation, pancytopenia and dyslipidemia, who was brought to the emergency room for elevated heart rate. The patient was recently seen in her local emergency room for similar complaints after having a chip stuck in her throat and found to be in SVT. She was given adenosine at [facility], where she converted to sinus rhythm with frequent PACs and then transferred to [facility]. The patient was started on a Cardizem drip and then home oral medications were resumed. Extensive review of EKGs thrombosed hospital admissions and there is no documentation of atrial fibrillation. Previously the patient was not on anticoagulation due to history of pancytopenia, however it is not indicated if there is no documentation of atrial fibrillation DIAGNOSTICS: Lab data: TSH 1.15, WBC 7.5, hemoglobin 12.8, hematocrit 36.6, platelet 126, sodium 142, potassium 3.7, BUN 27, creatinine 1.09, AST 195, ALT 265, ALP 162, D-dimer 0.33, magnesium 2.0, BNP 5388, troponin 0.01, 0.02, 0.03 Echocardiogram performed in November shows preserved LV function with no significant valvular abnormalities REVIEW OF SYSTEMS: Limited due to mental status. Patient denies any current chest pain or shortness of breath. PHYSICAL EXAMINATION: This is a 68-year-old female in no apparent distress at the time of my examination. HEENT: Head is atraumatic, normocephalic. Pupils are equal, round. There is no jugular venous distention. No carotid bruit is heard. CHEST EXAMINATION: Lungs are clear to auscultation. No chest wall tenderness is noted on palpation or with deep breathing. HEART EXAMINATION: Heart regular rate and rhythm. S1, S2 heard. No murmurs, gallops or rub. ABDOMEN: Soft, nontender. Bowel sounds are heard. No organomegaly noted. EXTREMITIES: 2+ peripheral pulses with no evidence of peripheral edema and no calf tenderness noted. NEUROLOGIC EXAMINATION: Patient is awake, alert and oriented to baseline. FINAL ASSESSMENT AND PLAN: Supraventricular tachycardia, adenosine sensitive History of atrial fibrillation History of pancytopenia History of dyslipidemia PLAN: No documentation of atrial fibrillation on either. Patient does not routinely admission Increase Cardizem to 180 mg oral If patient continues to have episodes of palpitations/dizziness, consideration for outpatient SVT ablation No need for repeat echocardiogram as well was completed in November Patient may be discharged from the cardiac standpoint I am dictating on behalf of Dr Esa Herzog's history/physical and assessment/plan. Past Medical History Past Medical History: Atrial Fibrillation, Asthma, Chest Pain / Angina, COPD, Osteoarthritis (OA), Thyroid Disorder Additional Past Medical History / Comment(s): mild mental retardation, glucoma,sleep apnea History of Any Multi-Drug Resistant Organisms: Unobtainable Past Surgical History: No Surgical Hx Reported Past Anesthesia/Blood Transfusion Reactions: Previous Problems w/ Anesthesia Past Psychological History: Unable to Obtain Past Alcohol Use History: None Reported, Unable to Obtain Past Drug Use History: None Reported - Past Family History Mother History Unknown: Yes Medications and Allergies Home Medications Medication Instructions Recorded Confirmed Type Acetaminophen [Tylenol Extra 500 - 1,000 mg PO Q6H PRN 10/15/18 03/04/24 History Strength] Ipratropium-Albuterol Nebulize 3 ml INHALATION RT-QID PRN 10/15/18 03/04/24 History [Duoneb 0.5 mg-3 mg/3 ml Soln] Potassium Chloride [K-Tab ER] 10 meq PO Q48H 10/15/18 03/04/24 History Sertraline [Zoloft] 200 mg PO DAILY@0800 10/15/18 03/04/24 History Ascorbic Acid [Vitamin C] 1,000 mg PO DAILY PRN 11/24/23 03/04/24 History Aspirin 81 mg PO DAILY@0811/24/23 03/04/24 History Brimonidine Tartrate [Alphagan P 1 drops RIGHT EYE BID@0800,1900 11/24/23 03/04/24 History 0.2% Ophth Soln] Cholecalciferol (Vitamin D3) 50 mcg PO DAILY@79911/24/23 03/04/24 History [Vitamin D3 (50 Mcg = 2000 Iu)] Furosemide [Lasix] 20 mg PO Q48H 11/24/23 03/04/24 History Lactulose 20 gm PO DAILY@0800 11/24/23 03/04/24 History Latanoprost [Latanoprost 0.005%] 1 drop BOTH EYES HS@1900 11/24/23 03/04/24 History Levothyroxine Sodium [Synthroid] 88 mcg PO DAILY@0800 11/24/23 03/04/24 History Lidocaine 4% Patch 1 patch TOPICAL DAILY PRN 11/24/23 03/04/24 History Meclizine [Antivert] 12.5 - 25 mg PO BID PRN 11/24/23 03/04/24 History Naproxen [Naprosyn] 500 mg PO BID@0800,1900 11/24/23 03/04/24 History Rosuvastatin Calcium 5 mg PO HS@1900 11/24/23 03/04/24 History Sodium Bicarbonate Tab 650 mg PO TID@0800,1600,1900 11/24/23 03/04/24 History clonazePAM [KlonoPIN] 0.25 mg PO DAILY@0800 11/24/23 03/04/24 History dilTIAZem HCL [Cartia Xt] 120 mg PO DAILY@0800 11/24/23 03/04/24 History miSOPROStoL 100 mcg PO BID@0800,1600 11/24/23 03/04/24 History Allergies Allergy/AdvReac Type Severity Reaction Status Date / Time No Known Allergies Allergy Verified 11/24/23 21:07 Physical Exam Vitals: Vital Signs Temp Pulse Resp BP Pulse Ox 03/05/24 09:31 72 18 128/73 98 03/05/24 09:29 98 03/05/24 04:00 66 18 114/71 98 03/05/24 02:00 64 18 129/69 98 03/05/24 00:00 70 18 123/83 98 03/04/24 22:00 73 18 124/78 98 03/04/24 21:00 75 18 142/98 98 03/04/24 19:44 75 03/04/24 19:39 74 03/04/24 18:13 98 F 85 18 125/84 100 Intake and Output 03/04/24 03/05/24 03/05/24 22:59 06:59 14:59 Other: Weight 45.359 kg Results 03/05/24 03:36 Cardiac Enzymes 03/04/24 03/05/24 Range/Units 20:48 00:50 Troponin I 0.023 0.035 H* (0.000-0.034) ng/mL Coagulation 03/04/24 03/05/24 03/05/24 Range/Units 19:48 03:36 03:36 PT 10.6 (10.0-12.5) sec APTT 27.6 57.0 H (22.0-30.0) sec CBC 03/05/24 Range/Units 03:36 WBC 3.7 L (3.8-10.6) k/uL RBC 3.39 L (3.80-5.40) m/uL Hgb 11.5 (11.4-16.0) gm/dL Hct 35.1 (34.0-46.0) % Plt Count 118 L (150-450) k/uL Current Medications Generic Name Dose Route Start Last Admin Trade Name Freq PRN Reason Stop Dose Admin Albuterol/Ipratropium 3 ml 03/04/24 18:50 03/04/24 19:37 Ipratropium-Albuterol 3 Ml Neb INHALATION 3 ml RT-QID PRN Administration Shortness Of Breath Ascorbic Acid 1,000 mg 03/05/24 09:00 03/05/24 08:58 Ascorbic Acid 500 Mg Tab PO 1,000 mg DAILY [facility] Administration Aspirin 81 mg 03/05/24 08:00 03/05/24 08:56 Aspirin 81 Mg PO 81 mg DAILY@08 [facility] Administration Atorvastatin Calcium 10 mg 03/04/24 19:30 03/04/24 20:48 Atorvastatin 10 Mg Tab PO 10 mg HS@1900 [facility] Administration Brimonidine Tartrate 1 drops 03/04/24 19:30 03/05/24 09:11 Brimonidine Tartrate 0.2% Drops 5 Ml Btl RIGHT EYE Not Given BID@0800,0 [facility] Cholecalciferol 50 mcg 03/05/24 08:00 03/05/24 08:56 Cholecalciferol 25 Mcg (1000 Iu) Tablet PO 50 mcg DAILY@08 [facility] Administration Clonazepam 0.25 mg 03/05/24 08:00 03/05/24 08:56 Clonazepam 0.5 Mg Tab PO 0.25 mg DAILY@08 [facility] Administration Diltiazem HCl 120 mg 03/05/24 08:00 03/05/24 08:57 Diltiazem Cd 120 Mg Cap.Er.24h PO 120 mg DAILY@0800 [facility] Administration Furosemide 20 mg 03/05/24 09:00 03/05/24 08:58 Furosemide 20 Mg Tab PO 20 mg Q48H [facility] Administration Heparin Sodium (Porcine) 0 unit 03/04/24 18:40 Heparin Sodium 1,000 Un/Ml (10ml Vl) IV PER PROTOCOL PRN Low PTT Protocol Heparin Sodium/Sodium Chloride 250 mls @ 5.443 mls/hr 03/04/24 18:45 03/04/24 20:51 25,000 unit/ Sodium Chloride IV 12 units/kg/hr .Q24H [facility] 5.443 mls/hr Administration Protocol 12 UNITS/KG/HR Lactulose 20 gm 03/05/24 08:00 03/05/24 08:57 Lactulose 20 Gm/30 Ml Cup PO 20 gm DAILY@0800 [facility] Administration Latanoprost 1 drops 03/04/24 19:30 03/04/24 22:11 Latanoprost 0.005% Ophth Drops 2.5 Ml Btl BOTH EYES Not Given HS@1900 [facility] Levothyroxine Sodium 88 mcg 03/05/24 08:00 03/05/24 08:57 Levothyroxine 88 Mcg Tab PO 88 mcg DAILY@0800 [facility] Administration Misoprostol 100 mcg 03/05/24 08:00 03/05/24 09:12 Misoprostol 100 Mcg Tab PO 100 mcg BID@0800,1600 [facility] Administration Naloxone HCl 0.2 mg 03/04/24 18:40 Naloxone 0.4 Mg/Ml 1 Ml Vial IV Q2M PRN Opioid Reversal Naproxen 500 mg 03/04/24 19:30 03/05/24 08:57 Naproxen 250 Mg Tab PO 500 mg BID@0800,1900 [facility] Administration Pantoprazole Sodium 40 mg 03/05/24 09:00 03/05/24 08:59 Pantoprazole 40 Mg/10 Ml Vial IV 40 mg DAILY [facility] Administration Potassium Chloride 10 meq 03/05/24 09:00 03/05/24 08:59 Potassium Chloride Er 10 Meq Tab.Er.Prt PO 10 meq Q48H [facility] Administration Sertraline HCl 200 mg 03/05/24 08:00 03/05/24 08:58 Sertraline 100 Mg Tab PO 200 mg DAILY@0800 [facility] Administration Sodium Bicarbonate 650 mg 03/04/24 19:30 03/05/24 08:58 Sodium Bicarbonate Tab 650 Mg Tab PO 650 mg TID@0800,1600,1900 [facility] Administration Intake and Output 03/04/24 03/05/24 03/05/24 22:59 06:59 14:59 Other: Weight 45.359 kg 03/05/24 03:36
--- NOTE | 2024-03-05 13:45 | P.DS ---
Providers Date of admission: 03/04/24 18:42 Expected date of discharge: 03/05/24 Attending physician: Maureen Lopez MD Consults: 03/04/24 18:40 Consult Physician Routine Consulting Provider: Damaso Loja Consult Reason/Comments: a fib Do you want consulting provider notified?: Yes Primary care physician: [facility] Course: Paroxysmal A-fib with RVR Chronic conditions: Mental disability, COPD, hypothyroidism Gen: In NAD, non-toxic HEENT: normocephalic, atraumatic, hearing acuity is intant, mucous membranes moist CVS: perfusing all extremities well, no pitting edema, Respiratory: symmetric chest expansion, no accessory muscle use, GI: soft, NTTP, ND, : no suprapubic tenderness, no CVA tenderness MSK/Derm: no rashes, cyanosis Neuro: CN II-XII intact, no motor weakness, Psych: cooperative, euthymic mood, judgment and insight is intact Hospital Course: Patient is a 68-year-old female with a PMH of mental disability, resident of [facility], COPD, hypothyroidism, and sleep apnea who had initially presented to [facility] for complaints of chest discomfort and palpitations. Patient was initially noted to be in SVT and was given adenosine after which the underlying rhythm was noted to be A-fib. The patient was subsequently transferred to [facility]. The patient underwent an extensive evaluation within the hospital which was all reviewed including a chest x-ray that was unremarkable with initial EKG showing A-fib at 120 bpm, subsequently showing SVT at 195 bpm. Patient was then given adenosine with resulting EKG s howing A-fib at a rate of 63 bpm. EKG at our facility also revealed A-fib at 84 bpm. Laboratory evaluation was reviewed with WBC count 7.5, hemoglobin 12.8, platelet count 126, sodium 142, potassium 3.7, chloride 108, CO2 24, glucose 154, BUN 27, creatinine 1.09, AST 195, ALT 265, with an unremarkable UA, with influenza, COVID, and RSV negative. Patient was admitted to the hospital for further management of atrial fibrillation. Patient was started on a Cardizem drip and resumed on home p.o. Cardizem. Patient was seen in consultation with cardiology who recommended increasing his home p.o. Cardizem to 180 mg daily from 120 mg daily and then cleared the patient for discharge with follow-up in their office. I spent 34 minutes coordinating this discharge Patient Condition at Discharge: Good Plan - Discharge Summary New Discharge Prescriptions: New Diltiazem Cd [Cardizem CD] 180 mg PO DAILY@0800 #30 cap Continue Sertraline [Zoloft] 200 mg PO DAILY@0800 Potassium Chloride [K-Tab ER] 10 meq PO Q48H Ipratropium-Albuterol Nebulize [Duoneb 0.5 mg-3 mg/3 ml Soln] 3 ml INHALATION RT-QID PRN PRN Reason: Shortness Of Breath Acetaminophen [Tylenol Extra Strength] 500 - 1,000 mg PO Q6H PRN PRN Reason: Pain Ascorbic Acid [Vitamin C] 1,000 mg PO DAILY PRN PRN Reason: SUPPLEMENT Sodium Bicarbonate Tab 650 mg PO TID@0800,1600,1900 Meclizine [Antivert] 12.5 - 25 mg PO BID PRN PRN Reason: DIZZINESS Lidocaine 4% Patch 1 patch TOPICAL DAILY PRN PRN Reason: Pain Levothyroxine Sodium [Synthroid] 88 mcg PO DAILY@0800 Latanoprost [Latanoprost 0.005%] 1 drop BOTH EYES HS@1900 Lactulose 20 gm PO DAILY@0800 Aspirin 81 mg PO DAILY@0800 Brimonidine Tartrate [Alphagan P 0.2% Ophth Soln] 1 drops RIGHT EYE BID@0800,1900 Cholecalciferol (Vitamin D3) [Vitamin D3 (50 Mcg = 2000 Iu)] 50 mcg PO DAILY@0800 Rosuvastatin Calcium 5 mg PO HS@1900 miSOPROStoL 100 mcg PO BID@0800,1600 Naproxen [Naprosyn] 500 mg PO BID@0800,1900 clonazePAM [KlonoPIN] 0.25 mg PO DAILY@0800 Furosemide [Lasix] 20 mg PO Q48H Discontinued dilTIAZem HCL [Cartia Xt] 120 mg PO DAILY@0800 Discharge Medication List Acetaminophen [Tylenol Extra Strength] 500 - 1,000 mg PO Q6H PRN 10/15/18 [History] Ipratropium-Albuterol Nebulize [Duoneb 0.5 mg-3 mg/3 ml Soln] 3 ml INHALATION RT-QID PRN 10/15/18 [History] Potassium Chloride [K-Tab ER] 10 meq PO Q48H 10/15/18 [History] Sertraline [Zoloft] 200 mg PO DAILY@0800 10/15/18 [History] Ascorbic Acid [Vitamin C] 1,000 mg PO DAILY PRN 11/24/23 [History] Aspirin 81 mg PO DAILY@0800 11/24/23 [History] Brimonidine Tartrate [Alphagan P 0.2% Ophth Soln] 1 drops RIGHT EYE BID@0800,1900 11/24/23 [History] Cholecalciferol (Vitamin D3) [Vitamin D3 (50 Mcg = 2000 Iu)] 50 mcg PO DAILY@0800 11/24/23 [History] Furosemide [Lasix] 20 mg PO Q48H 11/24/23 [History] Lactulose 20 gm PO DAILY@0800 11/24/23 [History] Latanoprost [Latanoprost 0.005%] 1 drop BOTH EYES HS@189911/24/23 [History] Levothyroxine Sodium [Synthroid] 88 mcg PO DAILY@0800 11/24/23 [History] Lidocaine 4% Patch 1 patch TOPICAL DAILY PRN 11/24/23 [History] Meclizine [Antivert] 12.5 - 25 mg PO BID PRN 11/24/23 [History] Naproxen [Naprosyn] 500 mg PO BID@0800,1900 11/24/23 [History] Rosuvastatin Calcium 5 mg PO HS@19011/24/23 [History] Sodium Bicarbonate Tab 650 mg PO TID@0800,1600,19011/24/23 [History] clonazePAM [KlonoPIN] 0.25 mg PO DAILY@0800 11/24/23 [History] miSOPROStoL 100 mcg PO BID@0800,1600 11/24/23 [History] Diltiazem Cd [Cardizem CD] 180 mg PO DAILY@0800 #30 cap 03/05/24 [Rx] Follow up Appointment(s)/Referral(s): Wallace Ang MD [Primary Care Provider] - 1-2 days Discharge Disposition: HOME SELF-CARE
[2024-03-05 19:18] VITALS: BP 110/86; PULSE 80; RESP 18; TEMP 98.2
[2024-03-06] MEDS ORDERED: DILTIAZEM CD 180 MG CAP.ER.24H PO SCH (08:00)
== END 2024-03-05 21:11 | disposition home or self-care (01) ==
LOC: EC 17:59 → 3SCARD 18:42 → 5NMEDONC 03-05 12:33
PROVIDERS: ADMIT Internal Medicine; ATTEND Internal Medicine
DX: I48.0 Paroxysmal atrial fibrillation (principal); I47.10 Supraventricular tachycardia, unspecified; G80.9 Cerebral palsy, unspecified; F70 Mild intellectual disabilities; E03.9 Hypothyroidism, unspecified; J44.9 Chronic obstructive pulmonary disease, unspecified; G47.30 Sleep apnea, unspecified; D61.818 Other pancytopenia; E78.5 Hyperlipidemia, unspecified; Z79.82 Long term (current) use of aspirin; Z79.1 Long term (current) use of non-steroidal anti-inflammatories (NSAID); Z79.890 Hormone replacement therapy; Z79.899 Other long term (current) drug therapy
CPT/HCPCS: 96374; 96375; 99291; 94640; 94760; 93005; 84443; 83735; 84484 ×2; 85025; 85610; 85730 ×2; G0378 ×3; S0191; J1644 ×2; C9113; 99285